=== PATIENT | male | born 1940 | race Caucasian/White ===

== ENCOUNTER → 2017-03-21 | Outpatient (CLI) | payer OTHER ==
[~2017-03-21] MED LIST: IOPAMIDOL (ISOVUE-M 200) 20 ML VIAL ONE; LIDOCAINE 1% 300 MG/30 ML SDV ONE
[2017-03-21 11:28] LABS: INR 1.15 (0.83-1.16); PROTIME(PATIENT) 14.9 SEC (12.0-15.0)
== END ==
LOC: FIMAGING 10:21
PROVIDERS: ATTEND Neurological Surgery
PROC: 3E0R3KZ Introduction of Other Diagnostic Substance into Spinal Canal, Percutaneous Approach (ICD-10-PCS; principal; 2017-03-21)
DX: S22.080A Wedge compression fracture of T11-T12 vertebra, initial encounter for closed fracture (principal); M51.36 Other intervertebral disc degeneration, lumbar region; M48.061 Spinal stenosis, lumbar region without neurogenic claudication; M25.78 Osteophyte, vertebrae
CPT/HCPCS: 62284; 72110; 72132; 72265; Q9966

== ENCOUNTER 2017-04-19 21:19 | Inpatient (IN) | payer OTHER ==
[2017-04-19] MEDS ORDERED: HYDROGEN PEROXIDE 236 ML BOTTLE TP ONE (21:40)
[2017-04-19] MEDS ORDERED: TDAP ADULT 0.5 ML INJ (BOOSTRIX) IM ONE (21:42)
--- NOTE | 2017-04-19 21:45 | EDPHY ---
H & P Smoking Status: Never smoked Time Seen by Provider: 04/19/17 21:31 HPI/ROS: CHIEF COMPLAINT: Fall with head injury HISTORY OF PRESENT ILLNESS: Patient is a history of pacemaker and atrial fibrillation is on warfarin. His [id number] brought him in today because he fell last night and there is a large amount of blood on the pillow. He does not remember if he passed out or foot was mechanical. Patient was a little bit more confused today per the [id number]. Patient is a mild headache. Does not radiate. Not associated with weakness or numbness in extremities or nausea or vomiting. REVIEW OF SYSTEMS: Eye: no change in vision ENT: no sore throat Cardiac: No chest pain, unknown if syncope Pulmonary: no cough or SOB Abdomen: no vomiting, diarrhea, abdominal pain Musculoskeletal: Chronic back pain scheduled for surgery, does not have neck pain. Does not have extremity pain. Increased back pain since his fall. Skin: Bleeding from the scalp on the left Neuro: HPI Constitutional: no fever : no urinary symptoms A comprehensive 10 point review of systems is otherwise negative aside from elements mentioned in the history of present illness. PAST MEDICAL HISTORY: Includes pacemaker with atrial fibrillation, on warfarin , chronic back pain with surgery scheduled. Social history: Lives independently, here with his [id number] General Appearance: Alert and conversant, cooperative. Eyes: No scleral icterus. Pupils equal and reactive. ENT, Mouth: Normal mucous membranes. Large amount of matted blood in the left side of the scalp. Respiratory: Normal respiratory effort, breath sounds equal, lungs are clear to auscultation. Cardiovascular: Regular rate and rhythm. Gastrointestinal: Abdomen is soft and non tender. Neurological: Alert, face symmetric, normal motor and sensory in extremities. He can move all 4 extremities. He can answer questions appropriately. Skin: Matted blood on the left scalp. Musculoskeletal: Tenderness to palpation on the cervical spine as well as the low lumbar area. No thoracic spine tenderness. No extremity deformity or tenderness and no hip pain on rotation or axial loading. Psychiatric: Not agitated. Emergency Department course/MDM: Trauma evaluation to include head and cervical spine CT, tetanus update, cleaning scalp to evaluate for head wound. Indication for head CT is head trauma on warfarin, anticoagulated. Initial BP 71 systolic but no clinical evidence of hemorrhagic shock, or active bleeding, or infection. All subsequent blood pressures not hypotensive. Syncope evaluation to include EKG and troponin. No aspirin with already having taken Brilinta today. Patient will need to be admitted for possibility of syncope and known cardiac disease. Lumbar spine x-rays for increased back pain after trauma. 2209: Creatinine elevated at 2.1, likely due to dehydration. IV fluid hydration ordered. 2230: Negative head and cervical spine CT for trauma per Dr. Shaffer. Appropriate for admission to Medicine with scalp laceration as the only traumatic injury. Evaluation for syncope and acute renal failure with probable dehydration. Cervical spine cleared clinically at this time. Left side scalp cleaned, 6cm laceration, see Vanessa ESQUIVEL note for wound care/ closure. The brother-in law is requesting case management consultation while admitted due to concerns about patient being able to adequately care for self in current living situation. (Carlos Delgado) Constitutional: Initial Vital Signs Temperature (C) 36.4 C 04/19/17 21:25 Heart Rate 106 H 04/19/17 21:25 Respiratory Rate 18 04/19/17 21:25 Blood Pressure 71/54 L 04/19/17 21:25 O2 Sat (%) 97 04/19/17 21:25 O2 Delivery Mode Room Air Allergies/Adverse Reactions: No Known Allergies Allergy (Unverified 03/17/17 10:44) Home Medications: Medication Instructions Recorded Allopurinol [Zyloprim] 300 mg PO DAILY 09/08/14 Aspirin [Aspirin 81mg (*)] 81 mg PO DAILY 09/08/14 Carvedilol [Coreg] 12.5 mg PO BIDMEAL 09/08/14 Cholecalciferol Vit D3 [Vitamin D3 1,000 units PO DAILY 09/08/14 (*)] Duloxetine HCl [Cymbalta] 30 mg PO DAILY 09/08/14 Levothyroxine [Synthroid 100 mcg 100 mcg PO DAILY06 09/08/14 (*)] ZOLPIDEM TARTRATE [Ambien CR 12.5 12.5 mg PO HS 09/08/14 mg] Alendronate Sodium 50 mg PO 08/12/15 Coumadin 2 mg PO AD 08/12/15 Torsemide 60 mg PO BID 08/12/15 Warfarin Sodium [Coumadin 4MG (*)] mg PO DAILY16 08/12/15 Losartan Potassium 03/01/17 Medical Decision Making - Diagnostics Imaging: Discussed imaging studies w/ circus rider Radiologist Consult/Admit Bed Type: [place] [id number] - Diagnostics EKG Interpretation: 12-lead EKG interpreted by me; official reading is in trace master. My interpretation is pacer rhythm with atrial fibrillation flutter rate 78. (Carlos Delgado) Imaging Results: Imaging Impressions Cervical Spine CT 04/19/17 21:42 Impression: 1. No acute osseous abnormality seen about the cervical spine. 2. Degenerative disk disease lower cervical spine with facet hypertrophy mid to upper cervical spine. Findings discussed with Carlos Delgado M.D. at 22:30 hour, 04/19/2017. Head CT 04/19/17 21:42 Impression: 1. Moderate atrophy. 2. No hemorrhage, mass effect, or definite acute peripheral infarct. 3. Minimal nonspecific hypodensities in the white matter of bilateral cerebral hemispheres. Differential diagnosis includes microvascular ischemic disease, post-infectious/post-inflammatory sequela, atypical demyelinating disease, or migraine-related sequela. Small white matter lacunar infarcts may also have this appearance. 4. Soft tissue contusion over the left superior parietal bone without associated fracture. If symptoms worsen, additional imaging may be necessary. Findings discussed with Carlos Delgado M.D. at 22:30 hour, 04/19/2017. Lumbar Spine X-Ray 04/19/17 21:45 Impression: 1. No acute osseous abnormality seen about the lumbar spine. 2. Marked disk space narrowing with associated hypertrophic osteophytes stable in appearance. 3. Mild compression central inferior endplate of T12 related to Schmorl's node stable in appearance. Procedures: Procedure: Laceration repair. I was requested by to perform wound closure I explained the indications, risks and benefits for both laceration repair and anesthetic administration. Verbal consent was obtained from the patient. The laceration on the the vertex of the scalp was anesthetized using 0.5% bupivicaine with epinephrine. After anesthetic administered the patient was observed for a period of time and had no apparent adverse effects. The wound was cleaned, prepped, draped in normal sterile fashion and explored to its base. No foreign body seen, no foreign bodies palpated. There were no deep structures involved. The wound was repaired with 12 dean. The wound repair was complex. The procedure was performed by myself. Patient has been informed that scarring will occur, although efforts have been made to minimize this. ( Pau Mendez) Differential Diagnosis: Differential diagnosis considered for syncope including but not limited to vasovagal syncope, arrhythmia, dehydration, and blood loss. (Carlos Delgado) - Data Points Laboratory Results: Laboratory Results 04/19/17 21:45 04/19/17 21:45 04/19/17 04/19/17 04/19/17 21:45 21:45 21:45 WBC 14.37 10^3/uL H 10^3/uL (3.80-9.50) RBC 3.39 10^6/uL L 10^6/uL (4.40-6.38) Hgb 11.3 g/dL L g/dL (13.7-17.5) Hct 33.1 % L % (40.0-51.0) MCV 97.6 fL fL (81.5-99.8) MCH 33.3 pg pg (27.9-34.1) MCHC 34.1 g/dL g/dL (32.4-36.7) RDW 16.5 % H % (11.5-15.2) Plt Count 223 10^3/uL 10^3/uL (150-400) MPV 12.5 fL H fL (8.7-11.7) Neut % (Auto) 93.1 % H % (39.3-74.2) Lymph % (Auto) 4.5 % L % (15.0-45.0) [place] % (Auto) 1.3 % L % (4.5-13.0) Eos % (Auto) 0.1 % L % (0.6-7.6) Baso % (Auto) 0.3 % % (0.3-1.7) Nucleat RBC Rel Count 0.0 % % (0.0-0.2) Absolute Neuts (auto) 13.38 10^3/uL H 10^3/uL (1.70-6.50) Absolute Lymphs (auto) 0.65 10^3/uL L 10^3/uL (1.00-3.00) Absolute Monos (auto) 0.19 10^3/uL L 10^3/uL (0.30-0.80) Absolute Eos (auto) 0.01 10^3/uL L 10^3/uL (0.03-0.40) Absolute Basos (auto) 0.04 10^3/uL 10^3/uL (0.02-0.10) Absolute Nucleated RBC 0.00 10^3/uL 10^3/uL (0-0.01) Immature Gran % 0.7 % % (0.0-1.1) Immature Gran # 0.10 10^3/uL 10^3/uL (0.00-0.10) PT 29.4 SEC H SEC (12.0-15.0) INR 2.80 H (0.83-1.16) APTT 39.2 SEC H SEC (23.0-38.0) Sodium 130 mEq/L L mEq/L (135-145) Potassium 4.6 mEq/L mEq/L (3.5-5.2) Chloride 95 mEq/L L mEq/L (97-110) Carbon Dioxide 22 mEq/l mEq/l (22-31) Anion Gap 13 mEq/L mEq/L (8-16) BUN 43 mg/dL H mg/dL (7-23) Creatinine 2.1 mg/dL H mg/dL (0.7-1.3) Estimated GFR 31 Glucose 95 mg/dL mg/dL (70-100) Calcium 8.8 mg/dL mg/dL (8.5-10.4) Troponin I 0.039 ng/mL H ng/mL (0.000-0.034) Patient ABO/Rh Antibody Screen 04/19/17 21:45 WBC RBC Hgb Hct MCV MCH MCHC RDW Plt Count MPV Neut % (Auto) Lymph % (Auto) [place] % (Auto) Eos % (Auto) Baso % (Auto) Nucleat RBC Rel Count Absolute Neuts (auto) Absolute Lymphs (auto) Absolute Monos (auto) Absolute Eos (auto) Absolute Basos (auto) Absolute Nucleated RBC Immature Gran % Immature Gran # PT INR APTT Sodium Potassium Chloride Carbon Dioxide Anion Gap BUN Creatinine Estimated GFR Glucose Calcium Troponin I Patient ABO/Rh A POSITIVE Antibody Screen NEGATIVE Medications Given: Cyclobenzaprine HCl (Flexeril) 10 mg PO TID PRN PRN Reason: Pain Stop: 10/17/17 08:59 Last Admin: 04/20/17 03:38 Dose: 10 mg Melatonin (Melatonin) 3 mg PO HS PRN PRN Reason: Sleep/Insomnia Stop: 10/17/17 01:02 Last Admin: 04/20/17 01:15 Dose: 3 mg Oxycodone HCl (Oxycodone Ir) 5 - 10 mg PO Q4HRS PRN PRN Reason: Pain, Severe Able to Take PO Stop: 04/30/17 01:02 Last Admin: 04/20/17 01:14 Dose: 10 mg Discontinued Medications Diphtheria/Tetanus/Acell Pertussis (Boostrix) 0.5 ml IM .ONCE ONE Stop: 04/19/17 21:43 Last Admin: 04/19/17 22:18 Dose: 0.5 ml Sodium Chloride (Ns) 1,000 mls @ 0 mls/hr IV EDNOW ONE; Wide Open PRN Reason: Protocol Stop: 04/19/17 22:11 Last Admin: 04/19/17 22:20 Dose: 1,000 mls Sodium Chloride (Ns) 500 mls @ 0 mls/hr IV ONCE ONE PRN Reason: Wide Open Stop: 04/20/17 01:57 Last Admin: 04/20/17 02:22 Dose: 500 mls Departure - Departure Disposition: [facility] Inpatient Acute Clinical Impression: Elevated troponin Syncope Qualifiers: Syncope type: unspecified Qualified Code(s): R55 - Syncope and collapse Acute renal failure Qualifiers: Acute renal failure type: unspecified Qualified Code(s): N17.9 - Acute kidney failure, unspecified Scalp laceration Qualifiers: Encounter type: initial encounter Qualified Code(s): S01.01XA - Laceration without foreign body of scalp, initial encounter Condition: Fair
[2017-04-19 21:50] LABS: PLATELET COUNT 223 10^3/uL (150-400)
--- NOTE | 2017-04-19 21:51 | CPEKG ---
Heart Rate: 78 RR Interval: 769 QRSD Interval: 132 QT Interval: 416 QTC Interval: 474 QRS [place]: -65 T Wave [place]: 76 EKG Severity - ABNORMAL ECG - EKG Impression: AFIB/FLUTTER AND VENTRICULAR-PACED RHYTHM Electronically Signed By: Carlos Delgado 19-Apr-2017 21:52:03
[2017-04-19 21:59] LABS: INR 2.8 (0.83-1.16); PROTIME(PATIENT) 29.4 SEC (12.0-15.0)
[2017-04-19] MEDS ORDERED: NS 1,000 ML IV ONE (22:10)
[2017-04-19] MEDS ORDERED: ONDANSETRON 4 MG/2 ML VIAL IVP PRN (22:17)
[2017-04-19] MEDS ORDERED: ONDANSETRON DISINTEGRATING 4 MG TAB PO PRN (22:17)
[2017-04-19] MEDS ORDERED: ACETAMINOPHEN 325 MG TAB PO PRN (22:17)
--- NOTE | 2017-04-20 00:55 | PDGENHP ---
History and Physical - Chief Complaint Fall - History of Present Illness 77 yo M w/ hx of vestibular CVA and AF on warfarin presents after a fall. The patient tripped and fell down a flight of stairs, hitting is head. He has poor recollection of the following 12 hours. He recalls waking up and seeing large amounts of blood in his bed. He as brought to the ED and was found to have a large scalp wound. CT Head was negative for intracranial injury. 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 He lives in a 2 story house and falls frequently. History Information - Allergies/Home Medication List Allergies/Adverse Reactions: No Known Allergies Allergy (Unverified 03/17/17 10:44) Home Medications: Allopurinol [Zyloprim] 300 mg PO DAILY 09/08/14 [Last Taken 08/11/15 12:00] Aspirin [Aspirin 81mg (*)] 81 mg PO DAILY 09/08/14 [Last Taken 08/10/15 10:00] Carvedilol [Coreg] 12.5 mg PO BIDMEAL 09/08/14 [Last Taken 08/11/15 20:00] Cholecalciferol Vit D3 [Vitamin D3 (*)] 1,000 units PO DAILY 09/08/14 [Last Taken 08/11/15 10:00] Duloxetine HCl [Cymbalta] 30 mg PO DAILY 09/08/14 [Last Taken 08/11/15 10:00] Levothyroxine [Synthroid 100 mcg (*)] 100 mcg PO DAILY06 09/08/14 [Last Taken 10:00] ZOLPIDEM TARTRATE [Ambien CR 12.5 mg] 12.5 mg PO HS 09/08/14 [Last Taken 21:00] Alendronate Sodium 50 mg PO 08/12/15 [Last Taken Unknown] Coumadin 2 mg PO AD 08/12/15 [Last Taken Unknown] Torsemide 60 mg PO BID 08/12/15 [Last Taken 08/11/15 08:00] Warfarin Sodium [Coumadin 4MG (*)] mg PO DAILY16 08/12/15 [Last Taken 08/11/15 10:00] Losartan Potassium 03/01/17 [Last Taken Unknown] I have personally reviewed and updated: family history, medical history - Past Medical History atrial fibrillation, CVA - Surgical History Reports: pacemaker/AICD - Family History Positive for: cancer - Social History Smoking Status: Never smoked Review of Systems Review of Systems: ROS: 10pt was reviewed & negative except for what was stated in HPI & below Physical Exam Physical Exam: Temp Pulse Resp BP Pulse Ox 36.6 C 63 19 97/59 L 93 04/20/17 00:17 04/20/17 00:17 04/20/17 00:17 04/20/17 00:17 04/20/17 00:17 Constitutional: no apparent distress, not in pain Eyes: PERRL, EOMI Ears, Nose, Mouth, Throat: moist mucous membranes, no oral mucosal ulcers Cardiovascular: no murmur, rub, or gallop, irregularly irregular Respiratory: no respiratory distress, clear to auscultation Gastrointestinal: normoactive bowel sounds, soft, non-tender abdomen Skin: warm, other (Scalp laceration and hematoma) Musculoskeletal: full muscle strength, no muscle tenderness Neurologic: AAOx3, CN II-XII Intact Psychiatric: interacting appropriately, not anxious Lab Data & Imaging Review 04/19/17 21:45 04/19/17 21:45 WBC 14.37 10^3/uL (3.80-9.50) H 04/19/17 21:45 RBC 3.39 10^6/uL (4.40-6.38) L 04/19/17 21:45 Hgb 11.3 g/dL (13.7-17.5) L 04/19/17 21:45 Hct 33.1 % (40.0-51.0) L 04/19/17 21:45 MCV 97.6 fL (81.5-99.8) 04/19/17 21:45 MCH 33.3 pg (27.9-34.1) 04/19/17 21:45 MCHC 34.1 g/dL (32.4-36.7) 04/19/17 21:45 RDW 16.5 % (11.5-15.2) H 04/19/17 21:45 Plt Count 223 10^3/uL (150-400) 04/19/17 21:45 MPV 12.5 fL (8.7-11.7) H 04/19/17 21:45 Neut % (Auto) 93.1 % (39.3-74.2) H 04/19/17 21:45 Lymph % (Auto) 4.5 % (15.0-45.0) L 04/19/17 21:45 Price % (Auto) 1.3 % (4.5-13.0) L 04/19/17 21:45 Eos % (Auto) 0.1 % (0.6-7.6) L 04/19/17 21:45 Baso % (Auto) 0.3 % (0.3-1.7) 04/19/17 21:45 Nucleat RBC Rel Count 0.0 % (0.0-0.2) 04/19/17 21:45 Absolute Neuts (auto) 13.38 10^3/uL (1.70-6.50) H 04/19/17 21:45 Absolute Lymphs (auto) 0.65 10^3/uL (1.00-3.00) L 04/19/17 21:45 Absolute Monos (auto) 0.19 10^3/uL (0.30-0.80) L 04/19/17 21:45 Absolute Eos (auto) 0.01 10^3/uL (0.03-0.40) L 04/19/17 21:45 Absolute Basos (auto) 0.04 10^3/uL (0.02-0.10) 04/19/17 21:45 Absolute Nucleated RBC 0.00 10^3/uL (0-0.01) 04/19/17 21:45 Immature Gran % 0.7 % (0.0-1.1) 04/19/17 21:45 Immature Gran # 0.10 10^3/uL (0.00-0.10) 04/19/17 21:45 PT 29.4 SEC (12.0-15.0) H 04/19/17 21:45 INR 2.80 (0.83-1.16) H 04/19/17 21:45 APTT 39.2 SEC (23.0-38.0) H 04/19/17 21:45 Sodium 130 mEq/L (135-145) L 04/19/17 21:45 Potassium 4.6 mEq/L (3.5-5.2) 04/19/17 21:45 Chloride 95 mEq/L (97-110) L 04/19/17 21:45 Carbon Dioxide 22 mEq/l (22-31) 04/19/17 21:45 Anion Gap 13 mEq/L (8-16) 04/19/17 21:45 BUN 43 mg/dL (7-23) H 04/19/17 21:45 Creatinine 2.1 mg/dL (0.7-1.3) H 04/19/17 21:45 Estimated GFR 31 04/19/17 21:45 Glucose 95 mg/dL (70-100) 04/19/17 21:45 Calcium 8.8 mg/dL (8.5-10.4) 04/19/17 21:45 Troponin I 0.039 ng/mL (0.000-0.034) H 04/19/17 21:45 Patient ABO/Rh A POSITIVE 04/19/17 21:45 Antibody Screen NEGATIVE 04/19/17 21:45 Imaging Review: Imaging Impressions Cervical Spine CT 04/19/17 21:42 Impression: 1. No acute osseous abnormality seen about the cervical spine. 2. Degenerative disk disease lower cervical spine with facet hypertrophy mid to upper cervical spine. Findings discussed with Carlos Delgado M.D. at 22:30 hour, 04/19/2017. Head CT 04/19/17 21:42 Impression: 1. Moderate atrophy. 2. No hemorrhage, mass effect, or definite acute peripheral infarct. 3. Minimal nonspecific hypodensities in the white matter of bilateral cerebral hemispheres. Differential diagnosis includes microvascular ischemic disease, post-infectious/post-inflammatory sequela, atypical demyelinating disease, or migraine-related sequela. Small white matter lacunar infarcts may also have this appearance. 4. Soft tissue contusion over the left superior parietal bone without associated fracture. If symptoms worsen, additional imaging may be necessary. Findings discussed with Carlos Delgado M.D. at 22:30 hour, 04/19/2017. Lumbar Spine X-Ray 04/19/17 21:45 Impression: 1. No acute osseous abnormality seen about the lumbar spine. 2. Marked disk space narrowing with associated hypertrophic osteophytes stable in appearance. 3. Mild compression central inferior endplate of T12 related to Schmorl's node stable in appearance. Visualized and Interpreted Chest x-ray results: Yes Visualized and Interpreted EKG results: Yes EKG Interpretation: Positive for: other (AF, V-paced) Assessment & Plan Assessment: 77 yo M w/ hx of CVA and AF presents after a fall. Plan: 1. Fall, scalp laceration - Patient tripped and fell down the stairs. He falls often as a result of gait dysfunction from prior stroke. He hit his head as he fell and lacerated his scalp. CT of head and C-spine negative for additional injuries. I suspect he suffered a concussions as well as he has a very vague memory of the subsequent 12-18 hours. - Admit for observation - PT/OT evaluations 2. ALEXANDRU - Serum creatinine of 2.1 on admission with baseline of 1-1.2. I suspect pre-renal azotemia noting minimal PO intake over last 24 hours in combination with diuretic therapy. - S/p IVF, recheck BMP in AM - Will send UA and urine lytes 3. Indeterminate troponin - Unclear significance, no chest pain. Will trend enzymes. 4. Hyponatremia - 130 on admission, suspect dehydration. Trend BMP after IVF. 5. Leukocytosis - Likely reactive from head injury. Monitor. 6. AF - s/p PPM, on warfarin for AC with therapeutic INR. Monitor daily INR. 7. Hx of CVA - Patient describes small vestibular strokes with resultant gait dysfunction. PT/OT evals. Diet - Regular Code - Full Ppx - warfarin Dispo - Admit under observation status
[2017-04-20] MEDS: oxyCODONE IR 5 MG TAB PO PRN (01:14)
[2017-04-20] MEDS: MELATONIN 3 MG TAB PO PRN ×2 (01:15→20:21)
[2017-04-20] MEDS ORDERED: NS 500 ML IV ONE (01:56)
[2017-04-20] MEDS ORDERED: CYCLOBENZAPRINE 10 MG TAB PO PRN (02:55)
[2017-04-20 03:23] LABS: PLATELET COUNT 171 10^3/uL (150-400)
--- NOTE | 2017-04-20 09:26 | ASMTCASEMG ---
Living Arrangements What is your living Answers: Alone arrangement? Who do you live with? Type Of Residence What kind of residence do Answers: House you live in? Discharge Plan Comments Coordination Status Comments Notes: CM spoke w/ MILDRED Morales regarding d/c POC. Pt is a 77 y/o female admitted for falling. Therapies have been ordered and awaiting recommendations. Pt lives in a 2 story home. Pt has been having multiple falls. Needs are TBD at this time. CM to follow. Plan: TBD Date Signed: 04/20/2017 09:25 AM Electronically Signed By:DUKE Rivera
--- NOTE | 2017-04-20 12:14 | HOSPPROG ---
Hospitalist Progress Note Assessment/Plan: 77 yo M w/ hx of CVA and AF presents after a fall. First encounter, chart reviewed. D/W neurosurgery and trauma. Plan: 1. Fall, scalp laceration - -Patient tripped and fell down the stairs. -takes ambien at night, discontinued -He falls often as a result of gait dysfunction from prior stroke. -He hit his head as he fell and lacerated his scalp. -CT of head and C-spine negative for additional injuries. -I suspect he suffered a concussions as well as he has a very vague memory of the subsequent 12-18 hours. -PT/OT/BOLT LOADER evaluations 2. ALEXANDRU - -Serum creatinine of 2.1 on admission with baseline of 1-1.2. -responding to hydration -suspect pre-renal azotemia noting minimal PO intake over last 24 hours in combination with diuretic therapy. -S/p IVF, recheck BMP in AM -Will send UA and urine lytes 3. Indeterminate troponin - -Unclear significance, no chest pain. -tending down 4. Hyponatremia - -130 on admission, suspect dehydration. -Trend BMP after IVF. -responding 5. Leukocytosis - -Likely reactive from head injury. Monitor. 6. AF - -s/p PPM, on warfarin for AC with therapeutic INR. Monitor daily INR. 7. Hx of CVA - -Patient describes small vestibular strokes with resultant gait dysfunction. PT/ OT evals. 8.Anemia -in the setting of acute blood loss -follow 9. Skin wounds -cont treatment 10. T12 compression -d/w neurosurgery -Nicki pt -consult ordered -has planned spine surgery in May 17. Rib pain -eval for fracture Diet - Regular Code - Full Ppx - warfarin Dispo - change to inpt status will need further evaluation in hospital setting consider SNF for rehab Subjective: Feels ok. Still having back pain. Objective: Vital Signs Temp Pulse Resp BP Pulse Ox 36.4 C 70 14 99/64 L 99 04/20/17 08:39 04/20/17 08:39 04/20/17 08:39 04/20/17 08:39 04/20/17 08:39 Laboratory Results 04/20/17 03:05 04/20/17 03:05 04/19/17 04/20/17 04/21/17 05:59 05:59 05:59 Intake Total 2000 Output Total 300 600 Balance 1700 -600 PT 29.4 SEC (12.0-15.0) H 04/19/17 21:45 INR 2.80 (0.83-1.16) H 04/19/17 21:45 - Physical Exam Constitutional: chronically ill appearing, obese, uncomfortable Eyes: PERRL, anicteric sclera, EOMI Ears, Nose, Mouth, Throat: moist mucous membranes, hearing normal, ears appear normal Cardiovascular: No JVD, No tachycardia, No edema Respiratory: no respiratory distress, no rales or rhonchi, reduced air movement Gastrointestinal: normoactive bowel sounds, No tenderness, No ascites Skin: warm, abrasion, erythema, other (laceration) Musculoskeletal: joint tenderness, pain with ROM, abnormal gait, generalized weakness Neurologic: AAOx3 Psychiatric: not anxious, not encephalopathic, poor insight, poor judgement, poor memory ICD10 Worksheet Patient Problems: Problems Problem Status Onset GLUTEAL HEMATOMA Acute Systolic CHF, acute on chronic Acute Cardiomyopathy Acute Chronic Disease Mgmt/Transitional Care Acute Syncope Acute Acute renal failure Acute Scalp laceration Acute Elevated troponin Acute
--- NOTE | 2017-04-20 13:41 | GCON ---
[f rep st] CONSULTATION NEUROSURGICAL CONSULTATION. CHIEF COMPLAINT: Back pain after fall. HISTORY OF PRESENT ILLNESS: The patient is a 77-year-old male with a complex medical history involvi ng a pacemaker, atrial fibrillation for which he is on Coumadin. 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 Caceres. He has bee n undergoing a course of conservative care with therapy, epidural steroid injections as well as Neuro ntin. He feels like the Neurontin has made him dizzy and he has been having several falls. After th e most recent fall, he was having a significant amount of low back pain. He describes pain across hi s back. This is associated with the typical pain radiating into both legs. He describes pain in his anterior and posterior thigh that is worse with walking and better with rest. He feels like his leg s are generally weak and he has chronic dorsiflexor weakness. He does have peripheral neuropathy and describes ongoing numbness in both feet. He feels like his balance is off. He has not been having any bowel and bladder problems. He has tried physical therapy, Neurontin and epidural steroid inject ions with no significant improvement of his pain. PAST MEDICAL HISTORY: 1. Hypertension. 2. Atrial fibrillation. 3. Previous stroke. 4. Gout. MEDICATIONS: Prior to admission are allopurinol, aspirin, Coreg, vitamin D, Cymbalta, Synthroid, Amb ien, alendronate sodium, Coumadin, Lasix, warfarin, losartan. ALLERGIES: No known drug allergies. FAMILY HISTORY: Patient has no family history of spine problems. SOCIAL HISTORY: The patient is single with no children. He does drink alcohol socially, but denies smoking or drug use. REVIEW OF SYSTEMS: Negative. PHYSICAL EXAM: GENERAL: Patient is a 77-year-old male lying in bed, in no apparent distress. HEAD/ EYES/EARS/NOSE/THROAT: Negative to drainage. SKIN: His skin has multiple small scrapes and abrasions on them. NEUROLOGIC: Patient is awake, alert, oriented x4. oriented x4. Pupils equal, round, reactive to lig ht. Extraocular motions are intact. There is no evidence of facial droop. Tongue and uvula are mid line. His motor strength appears 5/5 in his arms and legs with the exception of bilateral dorsiflexo rs which are 2/5 including his extensor hallucis longus. His sensation is grossly intact to light to uch in his arms and legs. Deep tendon reflexes are 1/4 throughout. There is a negative Tiffani's w ith no clonus. DIAGNOSTIC STUDIES: A CT myelogram of the lumbar spine from [facility] on 04/19/2017 shows preservation of the sagittal alignment. There is moderate to severe multilevel degenerative c hanges. At T12, there appears to be an acute compression deformity with approximately 20% loss of he ight and no retropulsion. At L4-5 and L5-S1, there is severe degenerative joint disease with ligamen loraine hypertrophy and broad-based disk herniation. This produces severe central canal stenosis bilater ally at both levels. A CT scan of the cervical spine shows moderate to severe multilevel degenerative changes with no frac ture. The head CT without contrast 04/19/2017, shows diffuse cerebral atrophy with no acute hemorrhage. IMPRESSION: This is a 77-year-old male with a known history of lumbar degenerative joint disease and neurogenic claudication symptoms and chronic dorsiflexor weakness. He is experiencing recent falls that he attributes to his Neurontin with an acute T12 compression fracture. He is at his baseline ne urological status. PLAN: Above discussed in detail with the patient. This patient was seen and examined with Dr. Dayton smith present. At this point time, we will treat his T12 compression fracture with a Hannah brace . We would like him to wear the brace at all times when out of bed. We will also have him work with Physical therapy and Occupational therapy. In regard to his lumbar stenosis and neurogenic claudica tion we recommend further conservative care with pain medications and therapy. He has had several ep idural steroid injections of the spine and none of them have been very effective. Since h is injections have not been helpful, it is not worthwhile to repeat any epidural steroid injections h ere. If he fails to improve with therapy then we can consider early surgical intervention for his se wally lumbar stenosis. If he does okay with conservative care, then he can be discharged and we can h ave him wait for surgery with Dr. Caceres on 05/18. We will follow along. Please call with any neuro logical changes. /[id number]/MODL
--- NOTE | 2017-04-20 15:12 | PDMN ---
Medical Necessity Medical necessity: Change to IP, as of 04/20/17, per PARIMUTUEL TICKET CASHIER; los >2 mn for ongoing eval/tx scalp laceration, T12 compression fx, possible rib fx, acute kidney injury, indeterminate troponin, hyponatremia, leukocytosis & anemia; admit for further monitoring/workup, IVFs, Neurosurgery consult & therapies; hx gait dysfunction r/t CVA, AFIB on AC, htn, peripheral neuropathy, lumbar stenosis; per progress note & order 04/20/17
--- NOTE | 2017-04-20 16:21 | ASMTCMCOM ---
CM Note CM Note Notes: CM met w/ pt and sister for dispo planning. PT is recommending SNF. Pt and sister would like [facility]errals [facility] Referral sent to both facilities. Sister does not want pt going to [facility] or [facility]. CM completed non triggering pasrr. CM to follow. Plan: SNF Date Signed: 04/20/2017 04:20 PM Electronically Signed By:DUKE Rivera
[2017-04-20] MEDS: CARVEDILOL 6.25 MG TAB PO SCH (18:01)
[2017-04-21 04:04] LABS: INR 2.46 (0.83-1.16); PROTIME(PATIENT) 26.6 SEC (12.0-15.0)
[2017-04-21] MEDS: LEVOTHYROXINE 100 MCG TAB PO SCH (07:08)
[2017-04-21] MEDS: oxyCODONE IR 5 MG TAB PO PRN ×3 (07:18→21:41)
--- NOTE | 2017-04-21 08:58 | NEUSURGPN ---
Assessment/Plan: A: 77 yo M s/p recent fall with T12 compression fx, known L4-S1 stenosis. P: PT/OT Brace when OOB Xrays in brace pending to eval fracture Pain management Has chronic dorsiflexor weakness D/w Dr Mahmood Please call NS with any questions Subjective: Pt resting in bed, hasn't slept all night. Back pain with movement. Objective: AAOx3 NAD VSS MAEx4 Motor 5/5 BLE with exception of bilat DF 2/[address]: No - Physician Discussed Patient with Dr.: Tyson Neurosurgery Physical Exam - Vitals, I&O, Labs I and O 04/20/17 04/21/17 04/22/17 05:59 05:59 05:59 Intake Total 950 Output Total 650 Balance 300 Intake: Oral (ml) 950 Output: Urine (ml) 650 Urinal 650 Other: Intake Quantity Yes Sufficient Vital Signs Temp Pulse Resp BP Pulse Ox 36.7 C 77 22 H 103/69 99 04/21/17 07:30 04/21/17 07:30 04/21/17 07:30 04/21/17 04:00 04/21/17 07:30 Laboratory Results 04/21/17 03:21 04/21/17 03:21 ICD10 Worksheet Patient Problems: Problems Problem Status Onset Acute renal failure Acute Elevated troponin Acute Scalp laceration Acute Syncope Acute Cardiomyopathy Acute Chronic Disease Mgmt/Transitional Care Acute GLUTEAL HEMATOMA Acute Systolic CHF, acute on chronic Acute
[2017-04-21] MEDS ORDERED: DULoxetine 60 MG CAP PO SCH (09:00)
[2017-04-21] MEDS ORDERED: WARFARIN SODIUM 4 MG TAB PO SCH (09:00)
[2017-04-21] MEDS ORDERED: LOSARTAN POTASSIUM 50 MG TAB PO SCH (09:00)
[2017-04-21] MEDS: ALLOPURINOL 300 MG TAB PO SCH (09:25)
[2017-04-21] MEDS: ASPIRIN 81 MG CHEWABLE TAB PO SCH (09:25)
[2017-04-21] MEDS: CARVEDILOL 6.25 MG TAB PO SCH ×2 (09:25→18:05)
[2017-04-21] MEDS: CHOLECALCIFEROL VIT D3 1,000 UNITS TAB PO SCH (09:25)
[2017-04-21] MEDS ORDERED: TORSEMIDE 20 MG TAB PO SCH (10:00)
[2017-04-21] MEDS ORDERED: TEMAZEPAM 15 MG CAP PO PRN (10:44)
--- NOTE | 2017-04-21 12:53 | ASMTCMCOM ---
CM Note CM Note Notes: Chart reviewed. Met with patient to review discharge plan of care . He states he would prefer [facility]. He has been accepted [facility], I have called [facility] and they have not been able to review referral as of yet. He tells me he has family touring both facilities today. Needs 3 midnights, CM to follow. Date Signed: 04/21/2017 12:52 PM Electronically Signed By:Belén Sims RN
--- NOTE | 2017-04-21 13:36 | HOSPPROG ---
Hospitalist Progress Note Assessment/Plan: 77 yo M w/ hx of CVA and AF presents after a fall. D/W Dr Angelo. Plan: 1. Fall, scalp laceration - -Patient unsure how it happened -takes ambien at night, discontinued -concussion -He falls often as a result of gait dysfunction from prior stroke. -CT of head and C-spine negative for additional injuries. -I suspect he suffered a concussions as well as he has a very vague memory of the subsequent 12-18 hours. -PT/OT/LINUX UNIX ENGINEER evaluations 2. ALEXANDRU - -resolved -Serum creatinine of 2.1 on admission with baseline of 1-1.2. -responding to hydration -suspect pre-renal azotemia noting minimal PO intake over last 24 hours in combination with diuretic therapy. -S/p IVF, recheck BMP in AM 3. Indeterminate troponin - -Unclear significance, no chest pain. -trending down 4. Hyponatremia - -130 on admission, suspect dehydration. -Trend BMP after IVF. -responding 5. Leukocytosis - -Likely reactive from head injury. Monitor. 6. AF - -s/p PPM, on warfarin for AC with therapeutic INR. Monitor daily INR. 7. Hx of CVA - -Patient describes small vestibular strokes with resultant gait dysfunction. PT/ OT evals. 8.Anemia -in the setting of acute blood loss -follow -stable 9. Skin wounds -cont treatment 10. T12 compression -d/w neurosurgery -[facility] pt -appreciate consult -has planned spine surgery in May 17. Rib fracture -cont therapy -RT, rib protocol 12. Insomnia -change cymbalta to HS -start restoril -DC all ambien -D/W PCP 13. Concussion -LINUX UNIX ENGINEER Diet - Regular Code - Full Ppx - warfarin Dispo - will need further evaluation in hospital setting SNF for rehab Subjective: Didn't sleep at all. Still haivng pain. No memory of events. Objective: Vital Signs Temp Pulse Resp BP Pulse Ox 36.7 C 77 22 H 103/69 99 04/21/17 07:30 04/21/17 07:30 04/21/17 07:30 04/21/17 04:00 04/21/17 07:30 Laboratory Results 04/21/17 03:21 04/21/17 03:21 04/20/17 04/21/17 04/22/17 05:59 05:59 05:59 Intake Total 950 Output Total 650 Balance 300 PT 26.6 SEC (12.0-15.0) H 04/21/17 03:21 INR 2.46 (0.83-1.16) H 04/21/17 03:21 - Physical Exam Constitutional: chronically ill appearing, obese, uncomfortable Eyes: PERRL, anicteric sclera, EOMI Ears, Nose, Mouth, Throat: moist mucous membranes, hearing normal, ears appear normal Cardiovascular: No JVD, No tachycardia, No edema Respiratory: no respiratory distress, no rales or rhonchi, reduced air movement Gastrointestinal: normoactive bowel sounds, No tenderness, No ascites Skin: warm, erythema, other (laceration) Musculoskeletal: pain with ROM, muscular tenderness, abnormal gait, generalized weakness Neurologic: AAOx3 Psychiatric: not anxious, not encephalopathic, poor insight, poor judgement, poor memory ICD10 Worksheet Patient Problems: Problems Problem Status Onset GLUTEAL HEMATOMA Acute Systolic CHF, acute on chronic Acute Cardiomyopathy Acute Chronic Disease [facility]/Transitional Care Acute Syncope Acute Acute renal failure Acute Scalp laceration Acute Elevated troponin Acute
[2017-04-21] MEDS: ACETAMINOPHEN 500 MG TAB PO PRN (21:40)
[2017-04-21] MEDS: MELATONIN 3 MG TAB PO PRN (21:41)
[2017-04-22] MEDS: LEVOTHYROXINE 100 MCG TAB PO SCH (06:31)
[2017-04-22] MEDS: ALLOPURINOL 300 MG TAB PO SCH (08:58)
[2017-04-22] MEDS: ACETAMINOPHEN 500 MG TAB PO PRN ×2 (08:58→18:41)
[2017-04-22] MEDS: CARVEDILOL 6.25 MG TAB PO SCH ×2 (08:59→18:05)
[2017-04-22] MEDS: ASPIRIN 81 MG CHEWABLE TAB PO SCH (08:59)
[2017-04-22] MEDS: CHOLECALCIFEROL VIT D3 1,000 UNITS TAB PO SCH (08:59)
[2017-04-22] MEDS: oxyCODONE IR 5 MG TAB PO PRN ×3 (09:01→23:17)
--- NOTE | 2017-04-22 15:52 | HOSPPROG ---
Hospitalist Progress Note Assessment/Plan: 77 yo M w/ hx of CVA and AF presents after a fall. Plan: 1. Fall, scalp laceration - -Patient unsure how it happened -takes ambien at night, discontinued -concussion -He falls often as a result of gait dysfunction from prior stroke. -CT of head and C-spine negative for additional injuries. -I suspect he suffered a concussions as well as he has a very vague memory of the subsequent 12-18 hours. -PT/OT/GREIGE GOODS MARKER evaluations this is a contraindication to ongoing warfarin therapy given "innumerable" falls 2. ALEXANDRU - -resolved -Serum creatinine of 2.1 on admission with baseline of 1-1.2. -responding to hydration -suspect pre-renal azotemia noting minimal PO intake over last 24 hours in combination with diuretic therapy. -S/p IVF, recheck BMP in AM 3. Indeterminate troponin - -Unclear significance, no chest pain. -trending down 4. Hyponatremia - -130 on admission, 2/2/ poor po intake plus diuretics -Trend BMP after IVF. -responding 5. Leukocytosis - -Likely reactive from head injury. Monitor. 6. AF - -s/p PPM, on warfarin for AC with therapeutic INR. Monitor daily INR. 7. Hx of CVA - -Patient describes small vestibular strokes with resultant gait dysfunction. PT/ OT evals. 8.Anemia -in the setting of acute blood loss -follow -stable 9. Skin wounds -cont treatment 10. T12 compression -d/w neurosurgery -[facility] pt -appreciate consult -has planned spine surgery in May 17. Rib fracture -cont therapy -RT, rib protocol Subjective: after discussion, amenable to dc to snf Objective: Vital Signs Temp Pulse Resp BP Pulse Ox 36.8 C 90 15 125/77 H 98 04/22/17 11:03 04/22/17 11:03 04/22/17 11:03 04/22/17 11:03 04/22/17 11:03 Laboratory Results 04/21/17 03:21 04/21/17 03:21 04/21/1718 04/23/17 05:59 05:59 05:59 Intake Total 950 1050 100 Output Total 650 400 Balance 300 650 100 PT 26.6 SEC (12.0-15.0) H 04/21/17 03:21 INR 2.46 (0.83-1.16) H 04/21/17 03:21 - Physical Exam Constitutional: no apparent distress, appears nourished Eyes: PERRL, anicteric sclera Ears, Nose, Mouth, Throat: moist mucous membranes, hearing normal Cardiovascular: regular rate and rhythym, no murmur, rub, or gallop Respiratory: no respiratory distress, no rales or rhonchi Gastrointestinal: normoactive bowel sounds, soft, non-tender abdomen Genitourinary: no bladder fullness, No perez in urethra Skin: warm, other (multiple bruises and scabs) Musculoskeletal: full muscle strength Neurologic: AAOx3 ICD10 Worksheet Patient Problems: Problems Problem Status Onset Acute renal failure Acute Elevated troponin Acute Scalp laceration Acute Syncope Acute Cardiomyopathy Acute Chronic Disease Mgmt/Transitional Care Acute GLUTEAL HEMATOMA Acute Systolic CHF, acute on chronic Acute
[2017-04-22] MEDS ORDERED: WARFARIN SODIUM 4 MG TAB PO SCH (16:00)
--- NOTE | 2017-04-22 17:27 | ASMTCMCOM ---
CM Note CM Note Notes: Spoke w/Stephanie at [facility]- no bed availability this weekend. Spoke w/pt's siste, enriqueta, who felt strongly that pt needed SNF. She does not feel he is safe to return home at this time. She was conceerned about empty vodka bottles that she found in pt's home; she said alcohol is not something he has struggled with but that it does run in his family and she wonderied if b/c of his paoin he was drinking more. Discussed this info w/Dr Yeh. Spoke w/pt several times today about rehab at [facility] which he is now agreeable to. Pt will likely dc in AM to to [facility], notified [facility] liason, and they are able to accept. CM should notify pt's sister Enriqueta of dc time; pt said she will be bringing him clothes tomorrow before dc. Date Signed: 04/22/2017 05:26 PM Electronically Signed By:Lala Aden RN
[2017-04-22] MEDS ORDERED: LACTULOSE 20 GM/30 ML UDCUP PO PRN (17:35)
[2017-04-22] MEDS ORDERED: POLYETHYLENE GLYCOL 3350 17 GM PKT PO PRN (17:35)
[2017-04-22] MEDS ORDERED: BISACODYL 10 MG SUPP PR PRN (17:35)
[2017-04-22] MEDS ORDERED: MAGNESIUM HYDROXIDE 30 ML UDCUP PO PRN (17:35)
[2017-04-22] MEDS: SENNOSIDES/DOCUSATE SODIUM TAB PO SCH (20:56)
[2017-04-22] MEDS ORDERED: DULoxetine 60 MG CAP PO SCH (21:00)
[2017-04-23] MEDS: LEVOTHYROXINE 100 MCG TAB PO SCH (05:55)
[2017-04-23] MEDS: SENNOSIDES/DOCUSATE SODIUM TAB PO SCH (08:25)
[2017-04-23] MEDS: CARVEDILOL 6.25 MG TAB PO SCH (08:25)
[2017-04-23] MEDS: CHOLECALCIFEROL VIT D3 1,000 UNITS TAB PO SCH (08:25)
[2017-04-23] MEDS: ALLOPURINOL 300 MG TAB PO SCH (08:25)
[2017-04-23] MEDS: ASPIRIN 81 MG CHEWABLE TAB PO SCH (08:25)
--- NOTE | 2017-04-23 10:41 | HOSPPROG ---
Hospitalist Progress Note Assessment/Plan: 77 yo M w/ hx of CVA and AF presents after a fall. Plan: 1. Fall, scalp laceration - -Patient unsure how it happened -takes ambien at night, discontinued -concussion -He falls often as a result of gait dysfunction from prior stroke. -CT of head and C-spine negative for additional injuries. -I suspect he suffered a concussions as well as he has a very vague memory of the subsequent 12-18 hours. -PT/OT/RN CLINICAL COORDINATOR evaluations this is a contraindication to ongoing warfarin therapy given "innumerable" falls 2. ALEXNADRU - -resolved -Serum creatinine of 2.1 on admission with baseline of 1-1.2. -responding to hydration -suspect pre-renal azotemia noting minimal PO intake over last 24 hours in combination with diuretic therapy. -S/p IVF, recheck BMP in AM 3. Indeterminate troponin - -Unclear significance, no chest pain. -trending down 4. Hyponatremia - -130 on admission, 2/2/ poor po intake plus diuretics -Trend BMP after IVF. -responding 5. Leukocytosis - -Likely reactive from head injury. Monitor. 6. AF - -s/p PPM, on warfarin for AC with therapeutic INR. Monitor daily INR. 7. Hx of CVA - -Patient describes small vestibular strokes with resultant gait dysfunction. PT/ OT evals. 8.Anemia -in the setting of acute blood loss -follow -stable 9. Skin wounds -cont treatment 10. T12 compression -d/w neurosurgery -[facility] pt -appreciate consult -has planned spine surgery in May 17. Rib fracture -cont therapy -RT, rib protocol dispo: to snf today Subjective: amenable to dc to [facility] Objective: Vital Signs Temp Pulse Resp BP Pulse Ox 36.6 C 67 18 123/77 H 96 04/23/17 07:54 04/23/17 07:54 04/23/17 07:54 04/23/17 07:54 04/23/17 07:54 Laboratory Results 04/21/17 03:21 04/21/17 03:21 18 04/23/17 04/24/17 05:59 05:59 05:59 Intake Total 1050 1100 Output Total 400 250 Balance 650 850 PT 26.6 SEC (12.0-15.0) H 04/21/17 03:21 INR 2.46 (0.83-1.16) H 04/21/17 03:21 - Physical Exam Constitutional: no apparent distress, appears nourished Eyes: PERRL, anicteric sclera Ears, Nose, Mouth, Throat: moist mucous membranes, hearing normal Cardiovascular: regular rate and rhythym, no murmur, rub, or gallop Respiratory: no respiratory distress, no rales or rhonchi Gastrointestinal: normoactive bowel sounds, soft, non-tender abdomen Genitourinary: no bladder fullness, No perez in urethra Skin: warm, normal color Musculoskeletal: full muscle strength Neurologic: AAOx3 ICD10 Worksheet Patient Problems: Problems Problem Status Onset Acute renal failure Acute Elevated troponin Acute Scalp laceration Acute Syncope Acute Cardiomyopathy Acute Chronic Disease Mgmt/Transitional Care Acute GLUTEAL HEMATOMA Acute Systolic CHF, acute on chronic Acute
--- NOTE | 2017-04-23 10:43 | PDIAF ---
- Diagnosis Diagnosis: fall, scalp laceration, acute kidney injury Code Status: Full Code - Medication Management Discharge Medications: Medications to Continue on Transfer Aspirin [Aspirin 81mg (*)] 81 mg PO DAILY 09/08/14 [Last Taken 04/19/17] Cholecalciferol Vit D3 [Vitamin D3 (*)] 1,000 units PO DAILY 09/08/14 [Last Taken 04/19/17] Levothyroxine [Synthroid 100 mcg (*)] 100 mcg PO DAILY06 09/08/14 [Last Taken ] ZOLPIDEM TARTRATE [Ambien CR 12.5 mg] 12.5 mg PO HS 09/08/14 [Last Taken ] Torsemide [Demadex] 20 mg PO DAILY10 08/12/15 [Last Taken 04/19/17] Warfarin Sodium [Coumadin 4MG (*)] 4 mg PO DAILY 08/12/15 [Last Taken 04/19/17] Losartan Potassium [Cozaar 50 mg (*)] 50 mg PO DAILY 03/01/17 [Last Taken ] Allopurinol [Allopurinol 300 MG (RX)] 300 mg PO DAILY 04/20/17 [Last Taken 04/19] Carvedilol [Coreg (*)] 12.5 mg PO BIDMEAL 04/20/17 [Last Taken 04/19/17 09:00] DULoxetine [Cymbalta 60 MG (*)] 60 mg PO DAILY 04/20/17 [Last Taken 04/19/17] Additional Medication Instructions: remove dean in head 05/03 Discharge Medications: Refer to the Discharge Home Medication list for PRN reason. PICC Care - Routine: N/A - Orders Services needed: Registered Nurse, Certified Manager Market Development, Physical Therapy, Occupational Therapy Isolation Type: None - Follow Up Care Current Providers and Referrals: NONE *PRIMARY CARE P,. [Primary Care Provider] - As per Instructions
--- NOTE | 2017-04-23 11:02 | GDS ---
[f rep st] DISCHARGE SUMMARY DISCHARGE DIAGNOSES: 1. Fall with scalp laceration. 2. Acute kidney injury, now resolved. 3. 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 4. Atrial fibrillation. 5. Compression fracture of T12. 6. Status post pacemaker. CONSULTATION: Neurosurgery who recommended a [place] brace when out of bed. HOSPITAL COURSE: The patient is admitted with a fall he did not recall. Subsequent evaluation revea led his sister found sound alcohol bottles in his room, in his house. He has previously not been a h eavy drinker. He did not have withdrawal while here. He also had a slightly elevated troponin in e setting of kidney injury that was not pursued. He had mild hyponatremia that resolved. Given the patient's innumerable falls and the fact that he was covered with bruises and cuts, in the presence of alcohol in his home as well as his chronic balance issues, warfarin was felt to be an uns afe option for him and was therefore discontinued. I have appraised his primary care physician of is. The patient is discharged to [facility] for ongoing rehabilitation. /[id number]/MODL
--- NOTE | 2017-04-23 11:09 | ASDISCHSUM ---
Discharge Information Plan Status:SNF Medically Cleared to Leave:04/23/2017 Discharge Date:04/23/2017 CM D/C Disposition:[facility] Facility ADT D/C Disposition: Projected Discharge Date:04/23/2017 01:00 PM Transportation at D/C:Wheelchair Van Discharge Delay Reason: Follow-Up Date:04/23/2017 01:00 PM Discharge Slot: Final Diagnosis: Placement Information Referral Type:*Long Term/SNF Referral ID:[facility]-[id number] Provider Name:Julianne Borja Address 1[address] Phone Number: Address 2: Fax Number: City:[place] Selection Factors: State:[place] Patient Contact Information Contact Name:ERICA Relationship:Sister Address:[address] City:[place] Alternate Phone: State/Zip Code:[place] [address] Email: Financial Information Financial Class:Medicare Primary Plan Desc:MEDICARE INPATIENT Primary Plan Number:[id number] Secondary Plan Desc: Secondary Plan Number:[id number] Assessment Information [facility] Initial CM Assessment Living Arrangements What is your living Answers: Alone arrangement? Who do you live with? Type Of Residence What kind of residence do Answers: House you live in? Discharge Plan Comments Coordination Status Comments Notes: CM spoke w/ MILDRED Morales regarding d/c POC. Pt is a 77 y/o female admitted for falling. Therapies have been ordered and awaiting recommendations. Pt lives in a 2 story home. Pt has been having multiple falls. Needs are TBD at this time. CM to follow. Plan: TBD Date Signed: 04/20/2017 09:25 AM Electronically Signed By:DUKE Rivera [facility] CM Progress Note CM Note CM Note Notes: CM met w/ pt and sister for dispo planning. PT is recommending SNF. Pt and sister would like referrals made to [facility] and [facility]. Referral sent to both facilities. Sister does not want pt going to [facility] or [place]. CM completed non triggering pasrr. CM to follow. Plan: SNF Date Signed: 04/20/2017 04:20 PM Electronically Signed By:DUKE Rivera [facility] CM Progress Note CM Note CM Note Notes: Chart reviewed. Met with patient to review discharge plan of care . He states he would prefer [facility]. He has been accepted to [facility], I have called [facility] and they have not been able to review referral as of yet. He tells me he has family touring both facilities today. Needs 3 midnights, CM to follow. Date Signed: 04/21/2017 12:52 PM Electronically Signed By:Belén Sims RN [facility] CM Progress Note CM Note CM Note Notes: Spoke w/Stephanie at [facility]- no bed availability this weekend. Spoke w/pt's enriqueta craft, who felt strongly that pt needed SNF. She does not feel he is safe to return home at this time. She was conceerned about empty vodka bottles that she found in pt's home; she said alcohol is not something he has struggled with but that it does run in his family and she wonderied if b/c of his paoin he was drinking more. Discussed this info w/Dr Yeh. Spoke w/pt several times today about rehab at [facility] which he is now agreeable to. Pt will likely dc in AM to to [facility], notified [facility] liason, and they are able to accept. CM should notify pt's sister Enriqueta of dc time; pt said she will be bringing him clothes tomorrow before dc. Date Signed: 04/22/2017 05:26 PM Electronically Signed By:Lala Aden RN Intervention Information Intervention Type:*BURGER-Signed Date of Service:04/20/2017 10:24 AM Patient Type:Observation Staff Member:Priscila Salazar Hours: Discipline: Severity: Comment: Intervention Type:*IM-Signed Date of Service:04/23/2017 10:14 AM Patient Type:Inpatient Staff Member:MILDRED Yeh, [facility] Hours: Discipline: Severity: Comment:
--- NOTE | 2017-04-23 11:11 | ASMTCMCOM ---
CM Note CM Note Notes: Spoke with MD. Dc order received. Met with pt to discuss; pt agreeable to dc poc. Spoke with pt's sister, Leonela ([phone]); confirmed Leonela will be bringing pt clothing prior to dc today. Spoke with Estephania, at [facility]; confirmed bed available for pt today; dc paperwork faxed; confirmed received. Estephania arranged transportation. Updated pt, Leonela & RN. No other needs at this time. Date Signed: 04/23/2017 11:11 AM Electronically Signed By:Sadia Yeh RN
[2017-04-23 11:15] VITALS: BP 109/81; PULSE 93; RESP 20; TEMP 98.7; O2SAT 93
== END 2017-04-23 13:37 | DRG 605 ==
LOC: INTOOBSV 22:17 → F2W 23:55 → OBSVTOIN 04-20 11:00 → F3E 04-22 18:52
PROVIDERS: ADMIT Student in an Organized Health Care Education/Training Program; ATTEND Student in an Organized Health Care Education/Training Program
PROC: 0HQ0XZZ Repair Scalp Skin, External Approach (ICD-10-PCS; principal; 2017-04-19)
DX: S01.01XA Laceration without foreign body of scalp, initial encounter (principal); S22.080A Wedge compression fracture of T11-T12 vertebra, initial encounter for closed fracture; N17.9 Acute kidney failure, unspecified; E87.1 Hypo-osmolality and hyponatremia; I48.91 Unspecified atrial fibrillation; W19.XXXA Unspecified fall, initial encounter; I10 Essential (primary) hypertension; M51.36 Other intervertebral disc degeneration, lumbar region; M48.062 Spinal stenosis, lumbar region with neurogenic claudication; M48.07 Spinal stenosis, lumbosacral region; Z95.810 Presence of automatic (implantable) cardiac defibrillator; Z86.73 Personal history of transient ischemic attack (TIA), and cerebral infarction without residual deficits
CPT/HCPCS: 92507-GN; 92523-GN; 97110-GP; 97116-GP; 97162-GP; 97165-GO; 97530-GO; 97535-GO; G8978-GP-CK; G8979-GP-CJ; G8987-GO-CI; G8988-GO-CI; G9165-GN-CI; G9166-GN-CI; G9167-GN-CI; J2405

== ENCOUNTER 2017-05-05 16:57 | Emergency (ER) | payer OTHER ==
--- NOTE | 2017-05-05 17:32 | EDPHY ---
H & P Stated Complaint: Had dean removed in head at PCP office;sent for eval infection @ site Time Seen by Provider: 05/05/17 17:24 HPI/ROS: CHIEF COMPLAINT: Possible infection on scalp HISTORY OF PRESENT ILLNESS: 77-year-old male was seen emergency department on post head injury, sustained a scalp laceration which was closed in the emergency department. He followed up with his primary care provider today to have his dean removed and it was noted that he had tenderness and fetid odor , referred PRIMARY CARE PROVIDER: Dr. Ricci Vasquez REVIEW OF SYSTEMS: A ten point review of systems was performed and is negative with the exception of the items mentioned in the HPI PAST MEDICAL & SURGICAL HISTORY: atrial fibrillation. SOCIAL HISTORY: Nonsmoker PHYSICAL EXAM (Prior to examination, patient consented to physical exam, hands were washed and my usual and customary physical exam procedures followed) 1) GENERAL: Well-developed, well-nourished, alert and oriented. Appears to be in no acute distress. 2) HEAD: Normocephalic, atraumatic. Multiple dean in place, wound partially dehisced, fetid odor. No crepitus.. 3) HEENT: Pupils equal, round, reactive to light bilaterally. Sclera anicteric. 4) NECK: Full range of motion, no meningeal signs. 5) LUNGS: Clear auscultation bilaterally, no wheezes, no rhonchi, no retractions. 6) HEART: Regular rate and rhythm, no murmur, no heave, no gallop. 7) ABDOMEN: No guarding, no rebound, no focal tenderness,, 8) MUSCULOSKELETAL: No peripheral edema or discoloration. 9) BACK: No visual or palpable abnormality. Hannah brace in place 10) SKIN: No rash, no petechiae. 11) Psychiatric: Patient is oriented X 3, there is no agitation. DIFFERENTIAL DIAGNOSIS: [In no particular include but limited to cellulitis, abscess, necrotizing fasciitis - Personal History Current Tetanus Diphtheria and Acellular Pertussis (TDAP): Yes - Medical/Surgical History Hx Asthma: No Hx Chronic Respiratory Disease: No Hx Diabetes: No Hx Cardiac Disease: No Hx Renal Disease: No Hx Cirrhosis: No Hx Alcoholism: No Hx HIV/AIDS: No Hx Splenectomy or Spleen Trauma: No Other PMH: pacemaker 2000, hypothyroid, colon resect , knee replacement (rt), 2 miniscus repairs rt shoulder (,), extreme weakness, prostate cancer 2009, A. FIB. 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" - Social History Smoking Status: Never smoked Constitutional: Initial Vital Signs Temperature (C) 36.7 C 05/05/17 17:15 Heart Rate 91 05/05/17 17:15 Respiratory Rate 18 05/05/17 17:15 Blood Pressure 117/81 H 05/05/17 17:15 O2 Sat (%) 97 05/05/17 17:15 O2 Delivery Mode Room Air Allergies/Adverse Reactions: No Known Allergies Allergy (Verified 05/05/17 17:17) Home Medications: Medication Instructions Recorded Aspirin [Aspirin 81mg (*)] 81 mg PO DAILY 09/08/14 Cholecalciferol Vit D3 [Vitamin D3 1,000 units PO DAILY 09/08/14 (*)] Levothyroxine [Synthroid 100 mcg 100 mcg PO DAILY06 09/08/14 (*)] Torsemide [Demadex] 20 mg PO DAILY10 08/12/15 Warfarin Sodium [Coumadin 4MG (*)] 4 mg PO DAILY16 08/12/15 Losartan Potassium [Cozaar 50 mg 50 mg PO DAILY 03/01/17 (*)] Allopurinol [Allopurinol 300 MG 300 mg PO DAILY 04/20/17 (RX)] Carvedilol [Coreg (*)] 12.5 mg PO BIDMEAL 04/20/17 DULoxetine [Cymbalta 60 MG (*)] 60 mg PO DAILY 04/20/17 Cephalexin [Keflex] 500 mg PO TID 10 Days cap 05/05/17 Sulfamethox/Tmp 800/160 mg 1 tab PO BID@1000,2200 10 Days tab 05/05/17 [Bactrim Ds] Medical Decision Making ED Course/Re-evaluation: 610 pm: Wound culture obtained and pending. Patient also seen and examined by Dr Hall. Doubt necrotizing fasciitis. Doubt abscess.Patient dean have been removed the wound was copiously irrigated will be allowed to heal via secondary intention. I think the patient would benefit from follow up with the wound clinic. Subsequently I spoke with the infectious disease physician track repair person Dr. Tariq Patterson at 6:09 p.m. who recommended the patient contact the wound clinic on Monday (today is Monday) for follow-up. Also recommend patient follow up with primary care provider. I am starting the patient on Keflex and Bactrim. He has been informed that he will need closer monitoring of his INR. Departure - Departure Disposition: Home, Routine, Self-Care Clinical Impression: Infected wound Condition: Good Instructions: Wound Infection (DC), Wound Infection (ED) Additional Instructions: Return to the ER if you develop redness, swelling, discharge, warmth to the wound, fever, chills or any other symptoms that concern you. Referrals: Frantz Vasquez MD [Primary Care Provider] - 05[facility]08[facility] - 05/08/17 (Call the wound clinic on Monday to be seen next week) Prescriptions: Cephalexin [Keflex] 500 mg PO TID 10 Days cap Sulfamethox/Tmp 800/160 mg [Bactrim Ds] 1 tab PO BID@1000,2200 10 Days tab
[2017-05-05 18:28] VITALS: BP 123/78
== END 2017-05-05 18:28 | disposition home or self-care (01) ==
DX: T81.4XXA Infection following a procedure, initial encounter (principal); Z79.01 Long term (current) use of anticoagulants; Z79.82 Long term (current) use of aspirin; Z85.46 Personal history of malignant neoplasm of prostate; Z95.0 Presence of cardiac pacemaker; Y82.9 Unspecified medical devices associated with adverse incidents

== ENCOUNTER 2017-05-18 08:08 | Inpatient (IN) | payer OTHER ==
[2017-05-18] MEDS ORDERED: THROMBIN (BOVINE) 20,000 UNIT VIAL TP ONE (08:20)
[2017-05-18] MEDS ORDERED: BUPIVACAINE 0.25% 30 ML SDV ONE (08:20)
[2017-05-18] MEDS ORDERED: BACITRACIN 50,000 UNITS/10 ML SYR IRR ONE (08:21)
[2017-05-18] MEDS ORDERED: AVITENE POWDER 1 GM JAR TP ONE (08:21)
[2017-05-18] MEDS ORDERED: MIDAZOLAM 2 MG/2 ML VIAL IVP ONE (08:27)
[2017-05-18] MEDS ORDERED: LR 1,000 ML IV ONE (08:33)
[2017-05-18] MEDS ORDERED: LIDOCAINE 1% 2 ML INJ ID PRN (08:33)
[2017-05-18] MEDS ORDERED: GABAPENTIN 300 MG CAP PO ONE (08:43)
[2017-05-18] MEDS ORDERED: ceFAZolin 2 GM/SWFI 2 GM/20 ML SYR IVP ONE (08:43)
[2017-05-18] MEDS ORDERED: morphINE PF 5 MG/10 ML INJ IT ONE (08:43)
[2017-05-18] MEDS ORDERED: ACETAMINOPHEN 500 MG TAB PO ONE (08:43)
--- NOTE | 2017-05-18 09:34 | PDHPUP ---
History & Physical Update H&P update statement: This history and physical update is based on an assessment of the patient which was completed after admission or registration (within 24 hours), but prior to the surgery/procedure. H&P update: H&P reviewed & patient examined, no change in patient's condition since H&P completed (Consents signed and site marked. All questions answered. He understands this is not for back pain but his leg pain and weakness. He wishese to proceed. )
[2017-05-18 09:35] LABS: INR 1.22 (0.83-1.16); PROTIME(PATIENT) 15.6 SEC (12.0-15.0)
[2017-05-18] MEDS ORDERED: PROPOFOL/EMULSION 500 MG/50 ML BOTTLE IV ONE (10:02)
[2017-05-18] MEDS ORDERED: fentaNYL 250 MCG/5 ML INJ ONE (10:07)
--- NOTE | 2017-05-18 10:20 | PDANEPAE ---
ANE History of Present Illness 77 Year old male for L4-S1 laminectomy. 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 Obese, HTN, cardiomyopatjhy. ANE Past Medical History - Cardiovascular History Hx Hypertension: Yes Hx Arrhythmias: No Hx Chest Pain: No Hx Coronary Artery / Peripheral Vascular Disease: No Hx CHF / Valvular Disease: No Cardiovascular History Comment: Ablation and pacer 2000 - Pulmonary History Hx COPD: No Hx Asthma/Reactive Airway Disease: No Hx Recent Upper Respiratory Infection: No Hx Oxygen in Use at Home: No O2 in Use at Home (L/minute): 2L NC for sleep Hx Sleep Apnea: No Sleep Apnea Screening Result - Last Documented: Negative Pulmonary History Comment: occasional use of O2 - Neurologic History Hx Cerebrovascular Accident: No Hx Seizures: No Hx Dementia: No Neurologic History Comment: mini-stroke involving inner ear 2008. - Endocrine History Hx Diabetes: No Endocrine History Comment: low thyroid - Renal History Hx Renal Disorders: No - Liver History Hx Hepatic Disorders: No - Neurological & Psychiatric Hx Hx Neurological and Psychiatric Disorders: Yes Neurological / Psychiatric History Comment: "Occ sciatica pain" bilat. Pinched nerve, bone spur-low back pain with walking. - Cancer History Hx Cancer: Yes Cancer History Comment: prostate CA tx w/radiation - Congenital Disorder History Hx Congenital Disorders: No - GI History Hx Gastrointestinal Disorders: Yes Gastrointestinal History Comment: multiple polyps -colonoscopy. 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 colon resection. 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: [employer] Date Pacemaker Last Checked: 03-03-17 ANE Patient History - Allergies Allergies/Adverse Reactions: No Known Allergies Allergy (Verified 05/05/17 17:17) - Home Medications Home Medications: Aspirin [Aspirin 81mg (*)] 81 mg PO DAILY 09/08/14 [Last Taken 6 Days Ago ~05/12] Cholecalciferol Vit D3 [Vitamin D3 (*)] 1,000 units PO DAILY 09/08/14 [Last Taken 1 Day Ago ~05/17/17] Levothyroxine [Synthroid 100 mcg (*)] 100 mcg PO DAILY06 09/08/14 [Last Taken 1 Day Ago ~05/17/17] Torsemide [Demadex] 20 mg PO DAILY10 08/12/15 [Last Taken 1 Day Ago ~05/17/17] Warfarin Sodium [Coumadin 4MG (*)] 4 mg PO DAILY16 08/12/15 [Last Taken 6 Days Ago ~05/12/17] Losartan Potassium [Cozaar 50 mg (*)] 50 mg PO DAILY 03/01/17 [Last Taken 3 Weeks Ago ~04/27/17] Allopurinol [Allopurinol 300 MG (RX)] 300 mg PO DAILY 04/20/17 [Last Taken 1 Day Ago ~05/17/17] Carvedilol [Coreg (*)] 12.5 mg PO BIDMEAL 04/20/17 [Last Taken 1 Day Ago ~] DULoxetine [Cymbalta 60 MG (*)] 60 mg PO DAILY 04/20/17 [Last Taken 1 Day Ago ~ 05/17/17] - NPO status NPO Since - Liquids (Date): 05/18/17 NPO Since - Liquids (Time): 04:00 NPO Since - Solids (Date): 05/17/17 NPO Since - Solids (Time): 19:00 - Smoking Hx Smoking Status: Never smoked ANE Labs/Vital Signs - Vital Signs Blood Pressure: 117/82 Heart Rate: 87 Respiratory Rate: 18 O2 Sat (%): 96 Height: 180.34 cm Weight: 113.398 kg ANE Physical Exam - Airway Neck exam: FROM Mallampati Score: Class 2 Mouth exam: normal dental/mouth exam - Pulmonary Pulmonary: no respiratory distress - Cardiovascular Cardiovascular: regular rate and rhythym - ASA Status ASA Status: III (Paced at VOO 80) ANE Anesthesia Plan Anesthesia Plan: general endotracheal anesthesia
[2017-05-18] MEDS ORDERED: CHLORHEXIDINE GLUC HIBICLENS 118 ML BTL TP ONE (10:24)
[2017-05-18] MEDS ORDERED: PROMETHAZINE HCL 25 MG/ML INJ IVP PRN ×2 (11:05→12:41)
[2017-05-18] MEDS ORDERED: MEPERIDINE 25 MG/ML SYR IVP PRN (11:05)
[2017-05-18] MEDS ORDERED: oxyCODONE IR 5 MG TAB PO PRN (11:05)
[2017-05-18] MEDS ORDERED: DEXAMETHASONE 4 MG/ML VIAL IVP PRN (11:05)
[2017-05-18] MEDS ORDERED: NALOXONE HCL 0.4 MG/ML INJ IVP PRN (11:05)
[2017-05-18] MEDS ORDERED: ALBUTEROL 3 ML DEYVIAL IH PRN (11:05)
[2017-05-18] MEDS ORDERED: LABETALOL HCL 5 MG/ML 20 ML MDV IVP PRN (11:05)
[2017-05-18] MEDS ORDERED: PHENYLEPHRINE HCL 100 MCG/ML SYR IVP PRN (11:05)
[2017-05-18] MEDS ORDERED: ONDANSETRON 4 MG/2 ML VIAL IVP PRN ×2 (11:05→12:41)
[2017-05-18] MEDS ORDERED: PROPOFOL 200 MG/20 ML VIAL ONE (11:41)
[2017-05-18] MEDS ORDERED: HYDROmorphONE/DILAUDID 1 MG/ML INJ IVP PRN (12:41)
[2017-05-18] MEDS ORDERED: ONDANSETRON DISINTEGRATING 4 MG TAB PO PRN (12:41)
[2017-05-18] MEDS ORDERED: MAGNESIUM HYDROXIDE 30 ML UDCUP PO PRN (12:41)
[2017-05-18] MEDS ORDERED: BISACODYL 10 MG SUPP PR PRN (12:41)
[2017-05-18] MEDS ORDERED: LACTULOSE 20 GM/30 ML UDCUP PO PRN (12:41)
[2017-05-18] MEDS ORDERED: POLYETHYLENE GLYCOL 3350 17 GM PKT PO PRN (12:41)
[2017-05-18] MEDS ORDERED: diphenhydrAMINE 25 MG CAP PO PRN (12:41)
[2017-05-18] MEDS ORDERED: NS W/ 20 KCl/L 1,000 ML IV SCH (12:45)
--- NOTE | 2017-05-18 13:02 | POSTOPPROG ---
Post Op Note Date of Operation: 05/18/17 Surgeon: Beena Skinner Airveyor Operator: Mary Skinner PA-C Anesthesiologist: Morteza Anesthesia: GET(General Endotracheal) Pre-op Diagnosis: lumbar stenosis Post-op Diagnosis: same Indication: leg weakness Procedure: L4-S1 laminectomy with bilateral foraminotomies Findings: Please see dictation Inf/Abcess present in the surg proc area at time of surgery?: No Depth: Organ Space EBL: 100-500 Complications: none Drains: Yusuf Perdomo Specimen(s): none PA Addendum - Addendum .: S: Pt awake in PACU, denies pain. O: AAOx3 NAD VSS MAEx4 Motor 5/5 BLE with exception of R EHL 4-/5, L EHL 4/5 Incision dressed cdi jpx1 A: 77 yo M s/p L4-S1 laminectomy with bilateral foraminotomies P: Admit to obs Pacemaker rep to check pacemaker post op Has pre existing scalp wound that is healing Had pre op leg weakness that is stable PT/OT Pain management TEDs, SCDs lovenox POD#1 May need SNF placement Call NS with any issues D/w Dr Caceres
[2017-05-18] MEDS ORDERED: fentaNYL 100 MCG/2 ML INJ ONE (13:28)
[2017-05-18] MEDS: fentaNYL 100 MCG/2 ML INJ IVP PRN ×2 (13:29→14:23)
[2017-05-18] MEDS ORDERED: ceFAZolin 2 GM/DEXTROSE 100 ML IV SCH (14:00)
--- NOTE | 2017-05-18 14:20 | GOP ---
[f rep st] OPERATIVE REPORT DATE OF OPERATION: 05/18/2017 SURGEON: Sheldon Caceres MD GLASSWARE SELECTOR: Beena Skinner, CLAUDINE. ANESTHESIA: General. PREOPERATIVE DIAGNOSIS: 1. Spondylosis, lumbar, severe spinal stenosis L4-L5, L5-S1 with bilateral lateral recess and foraminal stenosis. 2. Lower extremity weakness and claudication. 3. Treatment-refractory nonoperative intervention. POSTOPERATIVE DIAGNOSIS: 1. Spondylosis, lumbar, severe spinal stenosis L4-L5, L5-S1 with bilateral lateral recess and foraminal stenosis. 2. Lower extremity weakness and claudication. 3. Treatment-refractory nonoperative intervention. PROCEDURE PERFORMED: 1. Posterior decompressive laminectomy with bilateral medial facetectomies and foraminotomies at L4-L5 and L5-S1. 2. Use of intraoperative fluoroscopy, less than 1 hour physician time. 3. Use of neuromonitoring. 4. Use of operating microscope. 5. Use of intraoperative fluoroscopy, less than 1 hour physician time. FINDINGS: per imaging SPECIMENS: None. ESTIMATED BLOOD LOSS: 250 mL. INDICATIONS: The patient is a 77-year-old gentleman who presented to our office with worsening low back pain as well as lower extremity weakness to the point where he was crawling up the stairs because he had such profound weakness in his bilateral lower extremities including some claudication. The patient had imaging studies consistent with diffuse spondylosis, had diffuse spondylosis throughout the lumbar spine with severe spinal stenosis L4-L5, L5- S1 bilateral lateral recess and foraminal stenosis. Given his age, multiple comorbidities, we decided to proceed forth with surgical intervention as described above. The patient understood that this was not going to help his back pain, but was more indicated for his lower extremity weakness and claudication. DESCRIPTION OF PROCEDURE: The patient was brought to operating theater and underwent general endotracheal anesthesia without complications. He had Venodynes, MAIRA hose, and the appropriate lines placed by Anesthesia. He was flipped prone onto the Cecil frame, and all bony processes inspected and padded. Using lateral fluoroscopy and a spinal needle, we picked our entry point to the L4 through S1 levels. This was marked in the midline. The lower lumbar region prepped and draped in the usual sterile surgical fashion. A time- out was completed per protocol and the patient received antibiotics within 1 hour of incision. The incision was infiltrated with Marcaine with epinephrine and taken down with the scalpel blade. Using monopolar, the incision was taken down the midline to the lumbodorsal fascia. A subperiosteal dissection was carried out to the medial facet joints of L4-L5 and L5-S1. Deep retractors were placed to maintain exposure. We confirmed our level using lateral fluoroscopy. Using combination of the bur tip on the drill bit, Kerrison punches, and a Leksell rongeur, we completed a decompressive laminectomy with bilateral mesial facetectomies, L4-L5 and L5-S1. The patient's foramina were noted to be quite tight at the L4-L5 level. We continued with our decompression and foraminotomies using the Kerrison punches. Once we felt that everything was well decompressed, we obtained hemostasis with the bipolar. The wound was irrigated copiously with bacitracin irrigation and closed in multiple layers including Vicryl sutures for the deep layers and Dermabond for the skin. The patient's wounds were dressed sterilely. He was flipped supine onto the transport cart, where he was awakened, extubated, and taken to the recovery room in stable condition. There were no complications and no noted changes on neuromonitoring throughout the procedure. COMPLICATIONS: None. /[id number]/MODL MTDD
[2017-05-18] MEDS: ACETAMINOPHEN 500 MG TAB PO SCH ×2 (16:25→20:20)
[2017-05-18] MEDS: ceFAZolin 2 GM/SWFI 2 GM/20 ML SYR IVP SCH (18:07)
[2017-05-18] MEDS: CARVEDILOL 6.25 MG TAB PO SCH (18:07)
[2017-05-18] MEDS: oxyCODONE IR 5 MG TAB PO PRN (20:21)
[2017-05-18] MEDS: METHOCARBAMOL 750 MG TAB PO PRN (20:21)
[2017-05-18] MEDS: FAMOTIDINE 20 MG TAB PO SCH (20:21)
[2017-05-18] MEDS: SENNOSIDES/DOCUSATE SODIUM TAB PO SCH (20:21)
[2017-05-19] MEDS: ceFAZolin 2 GM/SWFI 2 GM/20 ML SYR IVP SCH (02:40)
[2017-05-19] MEDS: oxyCODONE IR 5 MG TAB PO PRN ×3 (02:41→20:16)
[2017-05-19] MEDS: ACETAMINOPHEN 500 MG TAB PO SCH ×3 (05:42→23:42)
[2017-05-19] MEDS: LEVOTHYROXINE 100 MCG TAB PO SCH (05:42)
--- NOTE | 2017-05-19 09:03 | NEUSURGPN ---
Assessment/Plan: A: 77 yo M s/p L4-S1 laminectomy with bilateral foraminotomies POD#1 P: Admit to obs Has pre existing scalp wound that is healing Had pre op leg weakness that is stable PT/OT Pain management TEDs, SCDs lovenox POD#1 DWAINE drain productive, leave in place for now Dispo: home later today if continues to do well Call NS with any issues D/w Dr Caceres Subjective: Pt resting in bed, states pain is tolerable. Has been able to get up and walk. Objective: AAOx3 NAD VSS MAEx4 Motor 5/5 BLE with exception of right DF 3+/5, left DF 4-/5 +LT Incision dressed DWAINE drain with bloody dc in bulb Urinary Catheter in Place: No - Physician Discussed Patient with : Nicki Neurosurgery Physical Exam - Vitals, I&O, Labs I and O 05/18/17 05/19/17 05/20/17 05:59 05:59 05:59 Intake Total 550 Output Total 1793 Balance -1243 Weight 113.398 kg Intake: Oral (ml) 550 Output: Urine (ml) 1650 Urinal 1650 DWAINE Drain Output (ml) 143 #1 Back 143 Other: Intake Quantity Yes Sufficient Bladder Scan Volume (ml) Urinal 833 Post Void Residual Scan Volume (ml) Urinal 301 Vital Signs Temp Pulse Resp BP Pulse Ox 36.9 C 86 16 136/94 H 98 05/19/17 07:57 05/19/17 07:57 05/19/17 07:57 05/19/17 07:57 05/19/17 07:57 ICD10 Worksheet Patient Problems: Problems Problem Status Onset Acute renal failure Acute Cardiomyopathy Acute Chronic Disease [facility]/Transitional Care Acute Elevated troponin Acute GLUTEAL HEMATOMA Acute Scalp laceration Acute Syncope Acute Systolic CHF, acute on chronic Acute
--- NOTE | 2017-05-19 11:24 | ASMTCMCOM ---
CM Note CM Note Notes: PT/OT recommending that pt have at least HHC. Pt is refusing SNF; he was recently at [facility] and did not have good experience. Pt lives at home independantly. We discussed dc plan. He says he has sister and neice who will be able to come over and help him as needed. Pt is open to HHC, would like to use [facility]. Notified mukesh at [facility]. [facility] info given to pt as requested and he declined MOW info. CM will follow. Date Signed: 05/19/2017 11:23 AM Electronically Signed By:Lala Aden RN
[2017-05-19] MEDS: DULoxetine 60 MG CAP PO SCH (11:26)
[2017-05-19] MEDS: ALLOPURINOL 300 MG TAB PO SCH (11:26)
[2017-05-19] MEDS: LOSARTAN POTASSIUM 50 MG TAB PO SCH (11:27)
[2017-05-19] MEDS: FAMOTIDINE 20 MG TAB PO SCH ×2 (11:27→20:16)
[2017-05-19] MEDS: CHOLECALCIFEROL VIT D3 1,000 UNITS TAB PO SCH (11:27)
[2017-05-19] MEDS: CARVEDILOL 6.25 MG TAB PO SCH ×2 (11:27→18:32)
[2017-05-19] MEDS: ENOXAPARIN 40 MG/0.4 ML SYR SC SCH (11:28)
[2017-05-19] MEDS: SENNOSIDES/DOCUSATE SODIUM TAB PO SCH ×2 (11:30→20:16)
[2017-05-19] MEDS: TORSEMIDE 20 MG TAB PO SCH (11:31)
[2017-05-19] MEDS ORDERED: HYDROmorphone HCL/NS 0.5 MG/ML SYR IVP PRN (15:30)
--- NOTE | 2017-05-19 16:30 | PDMN ---
Medical Necessity Medical necessity: Pt meets INPT criteria per MD/PA as of 05/19/17 (est. LOS >2 MN for ongoing eval/mgmt, need for PT/OT s/p L4-S1 lami).
--- NOTE | 2017-05-19 17:47 | ASMTCMCOM ---
CM Note CM Note Notes: [facility] not able to accept pt in case that he needs RN. [facility] able to accept, referral sent and Madai from [facility] met w/pt. Possible dc home tomorrow. Date Signed: 05/19/2017 05:46 PM Electronically Signed By:Lala Aden RN
[2017-05-19] MEDS: METHOCARBAMOL 750 MG TAB PO PRN (20:15)
[2017-05-20] MEDS: LEVOTHYROXINE 100 MCG TAB PO SCH (05:19)
[2017-05-20] MEDS: ACETAMINOPHEN 500 MG TAB PO SCH (05:19)
[2017-05-20] MEDS: oxyCODONE IR 5 MG TAB PO PRN (05:20)
[2017-05-20 07:27] VITALS: BP 135/84
[2017-05-20] MEDS: SENNOSIDES/DOCUSATE SODIUM TAB PO SCH (11:04)
[2017-05-20] MEDS: CHOLECALCIFEROL VIT D3 1,000 UNITS TAB PO SCH (11:04)
[2017-05-20] MEDS: ALLOPURINOL 300 MG TAB PO SCH (11:04)
[2017-05-20] MEDS: DULoxetine 60 MG CAP PO SCH (11:04)
[2017-05-20] MEDS: LOSARTAN POTASSIUM 50 MG TAB PO SCH (11:04)
[2017-05-20] MEDS: CARVEDILOL 6.25 MG TAB PO SCH (11:05)
[2017-05-20] MEDS: FAMOTIDINE 20 MG TAB PO SCH (11:05)
[2017-05-20] MEDS: ENOXAPARIN 40 MG/0.4 ML SYR SC SCH (11:05)
[2017-05-20] MEDS: TORSEMIDE 20 MG TAB PO SCH (11:21)
--- NOTE | 2017-05-20 12:16 | NEUSURGPN ---
Date of Surgery: 05/18/17 Post Op Day: 2 Assessment/Plan: 77 yo M s/p L4-S1 laminectomy with bilateral foraminotomies POD#2, doing well. P: dispo today Call NS with any issues D/w Dr Caceres Subjective: doing well, feel like his toe strength is improving Objective: NAD VSS AAOx3 eomi, pearla cnii-xii grossly intact MAEx4 5/5 except EHL; 4/5 left, 3/5 right SILT incision dressed, cdi - Physician Discussed Patient with : Nicki Neurosurgery Physical Exam - Vitals, I&O, Labs I and O 05/19/17 05/20/17 05/21/17 05:59 05:59 05:59 Intake Total 550 1000 Output Total 1793 300 Balance -1243 700 Weight 113.398 kg Intake: Oral (ml) 550 1000 Output: Urine (ml) 1650 300 Urinal 1650 300 DWAINE Drain Output (ml) 143 #1 Back 143 Other: Intake Quantity Yes Yes Sufficient Bladder Scan Volume (ml) Urinal 833 Post Void Residual Scan Volume (ml) Urinal 301 Vital Signs Temp Pulse Resp BP Pulse Ox 36.4 C 70 16 135/84 H 96 05/20/17 07:24 05/20/17 11:05 05/20/17 07:24 05/20/17 11:05 05/20/17 07:24 ICD10 Worksheet Patient Problems: Problems Problem Status Onset Acute renal failure Acute Cardiomyopathy Acute Chronic Disease Mgmt/Transitional Care Acute Elevated troponin Acute GLUTEAL HEMATOMA Acute Scalp laceration Acute Syncope Acute Systolic CHF, acute on chronic Acute
--- NOTE | 2017-05-20 12:29 | PDIAF ---
- Diagnosis Code Status: Full Code - Medication Management Discharge Medications: Medications to Continue on Transfer Cholecalciferol Vit D3 [Vitamin D3 (*)] 1,000 units PO DAILY 09/08/14 [Last Taken 1 Day Ago ~05/17/17] Levothyroxine [Synthroid 100 mcg (*)] 100 mcg PO DAILY06 09/08/14 [Last Taken 1 Day Ago ~05/17/17] Torsemide [Demadex] 20 mg PO DAILY10 08/12/15 [Last Taken 1 Day Ago ~05/17/17] Losartan Potassium [Cozaar 50 mg (*)] 50 mg PO DAILY 03/01/17 [Last Taken 3 Weeks Ago ~04/27/17] Allopurinol [Allopurinol 300 MG (RX)] 300 mg PO DAILY 04/20/17 [Last Taken 1 Day Ago ~05/17/17] Carvedilol [Coreg (*)] 12.5 mg PO BIDMEAL 04/20/17 [Last Taken 1 Day Ago ~] DULoxetine [Cymbalta 60 MG (*)] 60 mg PO DAILY 04/20/17 [Last Taken 1 Day Ago ~ 05/17/17] Acetaminophen [Tylenol ES 500 mg (*)] 1,000 mg PO Q8HRS tab 05/20/17 [Last Taken Unknown] Enoxaparin [Lovenox 40 MG (*)] 40 mg SC DAILY syr 05/20/17 [Last Taken Unknown] Methocarbamol [Robaxin 750 mg (*)] 750 mg PO QID PRN tab 05/20/17 [Last Taken Unknown] Sennosides/Docusate Sodium [Senokot-S] 1 - 2 tab PO BID tab 05/20/17 [Last Taken Unknown] oxyCODONE IR [Oxycodone Ir (*)] 5 - 10 mg PO Q4HRS PRN tab 05/20/17 [Last Taken Unknown] Discharge Medications: Refer to the Discharge Home Medication list for PRN reason. - Orders Services needed: Home Care, Registered Nurse, Physical Therapy, Occupational Therapy Home Care Face to Face: I certify that this patient was under my care and that I had the required [id number] encounter meeting the encounter requirements on the discharge day. My findings support the fact that the patient is homebound as defined in Home Care Face to Face Continued: [facility] Chapter 7 Medicare Benefits Manual 30.1.1 , The condition of the patient is such that there exists a normal inability to leave home and consequently, leaving home would require a considerable and taxing effort. Isolation Type: None Diet Recommendation: no restrictions on diet Diet Texture: Regular Texture Diet Additional Instructions: you may restart you coumadin on 1 week post op. you may continue your lovenox until you are therapeutic. No bending twisting lifting >15 lbs. - Follow Up Care Current Providers and Referrals: Frantz Vasquez MD [Primary Care Provider] -
--- NOTE | 2017-05-20 13:07 | ASMTCMCOM ---
CM Note CM Note Notes: Pt ready for DC today. Final orders and meds faxed to [facility]. Date Signed: 05/20/2017 01:06 PM Electronically Signed By:Mona Bruner LCSW
--- NOTE | 2017-05-20 14:35 | ASDISCHSUM ---
Discharge Information Plan Status: Medically Cleared to Leave: Discharge Date:05/20/2017 02:06 PM D/C Disposition: [facility] D/C Disposition:[id number] Projected Discharge Date:05/20/2017 11:00 AM Transportation at D/C: Discharge Delay Reason: Follow-Up Date:05/20/2017 11:00 AM Discharge Slot: Final Diagnosis: Placement Information Referral Type:*Home Health Care Services Referral ID:[id number] Provider Name:[facility] [place] Address 1:[address] [place] [address] Address 2: City:[place] Selection Factors: State:[place] Patient Contact Information Contact Name:ERICA Relationship:Sister Address:[address] City:[place] Alternate Phone: State/Zip Code:[place] [address] Email: Financial Information Financial Class:Medicare Primary Plan Desc:MEDICARE OUTPATIENT Primary Plan Number:[id number] Secondary Plan Desc: Secondary Plan Number:[id number] Assessment Information [facility] CM Progress Note CM Note CM Note Notes: PT/OT recommending that pt have at least HHC. Pt is refusing SNF; he was recently at [facility] and did not have good experience. Pt lives at home independantly. We discussed dc plan. He says he has sister and neice who will be able to come over and help him as needed. Pt is open to [facility], would like to use [facility]. Notified mukesh at [facility]. [facility] info given to pt as requested and he declined MOW info. CM will follow. Date Signed: 05/19/2017 11:23 AM Electronically Signed By:Lala Aden RN [facility] CM Progress Note CM Note CM Note Notes: [facility] not able to accept pt in case that he needs RN. [facility] able to accept, referral sent and Madai from met w/pt. Possible dc home tomorrow. Date Signed: 05/19/2017 05:46 PM Electronically Signed By:Lala Aden RN [facility] CM Progress Note CM Note CM Note Notes: Pt ready for DC today. Final orders and meds faxed to [facility]. Date Signed: 05/20/2017 01:06 PM Electronically Signed By:Mona Bruner LCSW Intervention Information Intervention Type:*BURGER-Signed Date of Service:05/19/2017 02:37 PM Patient Type:Observation Staff Member:Priscila Salazar Hours: Discipline: Severity: Comment: Intervention Type:*Occurence 72 Date of Service:05/18/2017 12:41 PM Patient Type:Inpatient Staff Member:MILDRED Monzon, Ngoc Hours:0.25 Discipline: Severity:1 (0-1 Hours) Comment: Occ 72 for 05/18/2017 12:41 to 05/20/19 18 16:23 as patient discharged 05/20/2017 12:24 (< 2 MN LOS after patient admsision status changed from observation to inpatient status)
== END 2017-05-20 14:06 | disposition home health service (06) | DRG 520 ==
LOC: OBSVTOIN 08:08 → F3N 08:08
PROVIDERS: ADMIT Neurological Surgery; ATTEND Neurological Surgery
PROC: 4A1004G Monitoring of Central Nervous Electrical Activity, Intraoperative, Open Approach (ICD-10-PCS; principal; 2017-05-18 10:15)
PROC: 8E0WXBZ Computer Assisted Procedure of Trunk Region (ICD-10-PCS; principal; 2017-05-18 10:15)
PROC: 00NY0ZZ Release Lumbar Spinal Cord, Open Approach (ICD-10-PCS; principal; 2017-05-18 10:15)
DX: M48.062 Spinal stenosis, lumbar region with neurogenic claudication (principal); M54.40 Lumbago with sciatica, unspecified side; M47.896 Other spondylosis, lumbar region; M47.897 Other spondylosis, lumbosacral region; M48.07 Spinal stenosis, lumbosacral region; I10 Essential (primary) hypertension; E66.9 Obesity, unspecified; Z95.0 Presence of cardiac pacemaker; Z85.46 Personal history of malignant neoplasm of prostate
CPT/HCPCS: 97116-GP; 97161-GP; 97165-GO; 97530-GP; 97535-GO; G8978-GP-CJ; G8979-GP-CI; G8980-GP-CI; G8987-GO-CJ; G8988-GO-CI; J0171; J0690; J1650; J2250; J2370; J2704; J3010

== ENCOUNTER 2017-06-13 09:16 | Inpatient (IN) | payer OTHER ==
--- NOTE | 2017-06-13 09:29 | EDPHY ---
H & P Time Seen by Provider: 06/13/17 09:21 HPI/ROS: HPI Stroke alert. 77-year-old male by ambulance from home. Family member reported the patient was up, ambulatory and at a baseline mental status and speech at 8:00 a.m.. Family member found the patient on the floor at 8:15 a.m. of his apartment. EMS called seen. EMS reported to me the patient had slurred speech and they thought a left-sided facial droop. On arrival and initial neurologic assessment the patient's speech is at baseline. He appears slightly intoxicated and admits to drinking vodka recently. He does have a history of alcohol abuse. He is also on oxycodone and Ambien after having recent back surgery. Family reports that he has not been managing these medications well. Per additional history from family the patient has some mildly slurred speech at baseline. The patient also has a history of recent falls from his couch in his bed. There is a vague history of recent fall down some stairs but we cannot verify this at this time. ROS: Constitutional: No fever, no chills. As above. Eyes: No discharge. No changes in vision. ENT: No sore throat. No nasal congestion or rhinorrhea. Respiratory: No cough. No shortness of breath. Cardiac: No chest pain, no palpitations. Gastrointestinal: No abdominal pain, no vomiting, no diarrhea. Genitourinary: No hematuria. No dysuria or increased frequency with urination. Musculoskeletal: No back pain. No neck pain. No myalgias or arthralgias. Skin: No rashes. Neurological: No headache. No focal weakness or altered sensation. Past medical history: Recent back surgery L5-S1. Pacemaker in 2000, hypothyroidism, colon resection, right knee replacement, right shoulder surgery , prostate cancer, atrial fibrillation, possible TIA. Currently on Coumadin. Social history: Here by himself. Family is nearby. History of alcohol abuse. Currently lives by himself. Physical Exam: General Appearance: Sleepy but easily arousable, moderately obese, no distress. This patient is responding to questions appropriately and in full sentences albeit with slurred speech. This patient appears well-hydrated and well-nourished. Head: Normocephalic atraumatic. Face: Facial bones are stable on palpation. Eyes: Pupils equal and round and reactive to light, no pallor or injection. No lid erythema or edema. ENT, Mouth: Mucous membranes moist. Dentition is intact. No malocclusion of the jaw. No tongue lacerations or abrasions. Pharynx is clear. The bilateral nasal canals are clear. No septal hematoma. Respiratory: There are no retractions, lungs are clear to auscultation with good air movement bilaterally. Chest wall is stable to AP and lateral palpation. Cardiovascular: Regular rate and rhythm. No murmur. Gastrointestinal: Abdomen is soft and nontender, no masses, bowel sounds normal. Neurological: Motor sensory function is intact. Cranial nerves are normal. Cerebellar function intact. Skin: Warm and dry, no rashes. Superficial abrasions dorsal distal feet, no suturable laceration. Musculoskeletal: Neck is supple and nontender. The trachea is midline. No midline cervical, thoracic, lumbar or sacral tenderness on palpation. No flank tenderness on palpation. Midline 4 cm LS spine surgical scars clean dry and intact. Extremities are symmetrical, full range of motion. All joints in the bilateral upper and bilateral lower extremities range without pain or impingement. No tenderness on palpation of the long bones in the bilateral upper and bilateral lower extremities. Psychiatric: No agitation. No depression. Database: EKG: EKG time is 9:46 a.m.; EKG shows a ventricular paced rhythm with nonspecific intraventricular conduction delay. The [place], QRS, QT intervals are within normal limits. There are no ST-T wave changes indicative of ischemic or injury pattern. No evidence of right heart strain. Interpreted by me. Imaging: CT head without contrast: Negative. CT angiogram of head and neck: Negative. CT cervical spine without contrast: Negative. Results of all CT imaging discussed with staff radiologist Dr. Yannick pride. Chest x-ray AP portable; the cardiac mediastinal silhouette is unremarkable. Pacemaker. Mild congestive heart failure. No evidence of infiltrate or pneumothorax. No other acute cardiopulmonary disease process noted. Interpreted by me. Procedures: Emergency department course: IV placed per EMS. After my initial neurologic Assessment, the patient was sent for CT imaging. Initial neurologic exam is nonfocal. The patient is not a tPA candidate at this time. His presentation is not consistent with CVA. 11:35 a.m., patient re-evaluated. Sleeping but easily arousable. Repeat neurologic Assessment is nonfocal. I discussed the results of his CT imaging with him and the need for admission. Hospitalist paged. 11:45 a.m., spoke with hospitalist. Case discussed in detail. Hospitalist requested a trauma service consult. Patient accepted for admission to the hospitalist service. I spoke with Dr. Isabella Amanda of the Trauma Service regarding this patient. She will consult on any trauma related issues. The patient's remaining emergency department course under my care unremarkable. Patient admitted in stable condition. Differential Diagnosis: The differential diagnosis on this patient includes but is not limited to CVA, TIA, alcohol intoxication, narcotic pain medication overdose, Ambien overdose. This represents a partial list of diagnoses considered. These considerations are based on history, physical exam, past history, reassessment and diagnostic testing. Smoking Status: Never smoked Constitutional: Initial Vital Signs Heart Rate 72 06/13/17 09:37 Respiratory Rate 16 06/13/17 09:37 Blood Pressure 138/72 H 06/13/17 09:37 O2 Sat (%) 94 06/13/17 09:37 O2 Delivery Mode Room Air O2 (L/minute) 2 Allergies/Adverse Reactions: No Known Allergies Allergy (Verified 05/05/17 17:17) Home Medications: Medication Instructions Recorded Acetaminophen [Tylenol ES 500 mg 1,000 mg PO Q8HRS PRN 06/13/17 (*)] Allopurinol [Allopurinol 300 MG 300 mg PO DAILY 06/13/17 (RX)] Carvedilol [Coreg (*)] 12.5 mg PO BIDMEAL 06/13/17 Cholecalciferol Vit D3 [Vitamin D3 1,000 units PO DAILY 06/13/17 (*)] DULoxetine [Cymbalta 60 MG (*)] 60 mg PO DAILY 06/13/17 Ezetimibe [Zetia 10 MG (*)] 10 mg PO DAILY 06/13/17 Levothyroxine [Synthroid 100 mcg 100 mcg PO DAILY06 06/13/17 (*)] Losartan Potassium [Cozaar 50 mg 50 mg PO DAILY 06/13/17 (*)] Psyllium Husk (with Sugar) 1 each PO DAILY PRN 06/13/17 [Metamucil Packet] Sennosides/Docusate Sodium 1 - 2 each PO BID 06/13/17 [Senna-S Tablet] Torsemide [Demadex] 20 mg PO DAILY10 06/13/17 Warfarin Sodium [Coumadin 2MG (*)] 4 mg PO SUMOTUWETHSA@16 06/13/17 Warfarin Sodium [Coumadin 3MG (*)] 6 mg PO FR@16 06/13/17 ZOLPIDEM TARTRATE [Ambien CR 12.5 12.5 mg PO HS PRN 06/13/17 mg] oxyCODONE IR [Oxycodone Ir (*)] 5 - 10 mg PO Q4HRS PRN 06/13/17 Medical Decision Making - Data Points Laboratory Results: Laboratory Results 06/13/17 09:58 06/13/17 09:27 Medications Given: Acetaminophen (Tylenol) 650 mg PO Q4HRS PRN PRN Reason: Pain, Mild/Fever, Can Take PO Stop: 12/10/17 13:00 Last Admin: 06/13/17 13:23 Dose: 650 mg Oxycodone HCl (Oxycodone Ir) 5 - 10 mg PO Q4 PRN PRN Reason: Pain, Severe Able to Take PO Stop: 06/23/17 18:15 Last Admin: 06/14/17 00:08 Dose: 10 mg Departure - Departure Disposition: [facility] Acute Clinical Impression: Altered mental status, Multiple falls
--- NOTE | 2017-06-13 09:48 | CPEKG ---
Heart Rate: 115 RR Interval: 522 QRSD Interval: 226 QT Interval: 392 QTC Interval: 543 P Deming: 0 QRS Deming: 50 T Wave Deming: -12 EKG Severity - ABNORMAL ECG - EKG Impression: VENTRICULAR-PACED COMPLEXES EKG Impression: NONSPECIFIC INTRAVENTRICULAR CONDUCTION DELAY Electronically Signed By: Marilia Quintanilla 13-Jun-2017 14:35:19
[2017-06-13 09:49] LABS: INR 2.77 (0.83-1.16); PROTIME(PATIENT) 29.2 SEC (12.0-15.0)
[2017-06-13 10:03] LABS: PLATELET COUNT 183 10^3/uL (150-400)
--- NOTE | 2017-06-13 12:38 | ASMTCMCOM ---
CM Note CM Note Notes: Pt presented to the ED via EMS as a Stroke Alert after being found down at his home by his [id number]. Pt admitted for AMS and falls at home. Pt gave verbal permission to contact his sister [facility] Isabella Koo (H:[phone], C:[phone]). Spoke with Isabella who reports that she and her went over to pt's house last night and found him on the floor (it appeared pt was trying to get to the bathroom) but he did no present with the facial droop last night so they thought he was just out of it and then helped him to bed on the living room couch. This morning the [id number] went to check on pt and found him on the floor next to his bed, noticed the facial droop & called EMS. Pt lives alone in a two-story private home. Pt recently admitted & discharged 05/20/17 with [facility] ([phone]). Spoke w/JUSTIN and they say pt was receiving services through their [place] office but was discharged from their services on 05/31/17. Pt was also admitted back in April 2017 and had been discharged to [facility]. Per chart review, pt did not have a good experience at [facility]. There were also notes indicating that Isabella would not want patient to go to [facility] or [facility]. Per chart review, it appears pt was also interested in [facility]. Pt recently had posterior decompressive L4-S1 laminectomies w/Dr Caceres on 05/18/17. Isabella states pt has "not been managing his medications well" and may be taking more than prescribed (oxycodone, ambien, etc) and there is also concern about alcohol consumption (pt admits to drinking vodka and previous admission notes say Isabella was concerned about empty vodka bottles around house). Spoke w/Isabella again, updated on pt being admitted and room number. Isabella states she and her are on their way to the hospital. Anticipate pt to have PT/OT/WEATHERIZATION AND HOUSING INSPECTOR evals, poss SNF placement if pt agreeable (pt wasn't agreeable last admission). CM to follow. Date Signed: 06/13/2017 12:37 PM Electronically Signed By:Monica Lilly RN
--- NOTE | 2017-06-13 12:40 | ASMTLACE ---
FAISAL Acuity / Level of Answers: No Care: Did the patient have an inpatient admission? Comorbidities - select Answers: Congestive heart failure all that apply History of falls Opioid dependence / Chronic pain Other Notes: history of prostate cancer, A-fi b, pacemaker # of Emergency department Answers: 3-4 visits in the last 6 months Social determinants Answers: History of substance abuse (ETOH, street drugs, prescription drugs, etc.) Score: 16 Date Signed: 06/13/2017 12:39 PM Electronically Signed By:Monica Lilly RN
[2017-06-13] MEDS ORDERED: ONDANSETRON DISINTEGRATING 4 MG TAB PO PRN (13:01)
[2017-06-13] MEDS ORDERED: ONDANSETRON 4 MG/2 ML VIAL IVP PRN (13:01)
[2017-06-13 13:10] LABS: CREATINE KINASE 634 IU/L (0-224)
[2017-06-13] MEDS: ACETAMINOPHEN 325 MG TAB PO PRN (13:23)
--- NOTE | 2017-06-13 13:51 | GHP ---
[f rep st] HISTORY AND PHYSICAL DATE OF ADMISSION: 06/13/2017 CHIEF COMPLAINT: Fall. HISTORY OF PRESENT ILLNESS: The patient is a 77-year-old man who presented to the ER as a stroke dawn rt from home. On speaking with the patient, he thinks he fell maybe yesterday or the day before; he is unsure. He does have a history of alcohol abuse. He is on oxycodone and Ambien after recent back surgery. He is not a good historian. He is complaining of pain by his left toe. He also describes that he recently had back surgery. PAST MEDICAL HISTORY: Hypothyroidism, prostate cancer, atrial fibrillation. PAST SURGICAL HISTORY: Recent back surgery for L5-S1, pacemaker, colon resection, right knee replace ment, right shoulder surgery. SOCIAL HISTORY: History of alcohol abuse. Lives alone. REVIEW OF SYSTEMS: Difficult to obtain as he does not seem very focused. FOCUSED PHYSICAL EXAMINATION: VITAL SIGNS: 36.4, 87, 152/92, 28, 96% room air. GENERAL: Pleasant, somewhat disheveled, overweight man lying on gurney. HEENT: Normocephalic. No gross hearing defici ts. Mucous membranes dry. Pupils equal and round. LUNGS: Clear to auscultation bilaterally. No i ncreased work of breathing. CARDIAC: Regular rate. ABDOMEN: Bowel sounds present. Soft, nontende r, nondistended. He has a midline abdominal incision. SKIN: He has scattered abrasions over his bi lateral lower extremities and on his toes. His left great toe and 2nd toe are a bit more erythematou s as compared to the right. No obvious signs of ascending infection. PSYCH: Unable to focus well. MUSCULOSKELETAL: Although it took quite a bit of direction, he does have 5/5 strength, upper and lo wer extremities. NEURO: Grossly intact. RESULTS REVIEWED: I personally reviewed the results of his head CT, neck CTA. There are no acute in tracranial process or fractures. LABORATORY DATA: Significant for a CK of 634. His white count is mildly elevated at 10. He is anem ic at 10.7 and 33. His INR is 2.77. IMPRESSION/PLAN: The patient is a 77-year-old man who is a poor historian, who fell possibly sometim e within the past 48 hours. He has a history of recent back surgery. He appears somewhat confused. I do not see any acute traumatic injuries. Please consult the trauma service if a specific concern arises. /[id number]/MODL
--- NOTE | 2017-06-13 14:06 | GHP ---
[f rep st] HISTORY AND PHYSICAL DATE OF ADMISSION: 06/13/2017 HISTORY OF PRESENT ILLNESS: The patient is a pleasant 77-year-old gentleman with a history of remote cerebellar stroke with gait instability, as well as a recent lumbar spine surgery, who presents with fall and possible slurred speech. He initially presented as a stroke alert and that he appeared to be intoxicated with slurred speech. The stroke workup was negative. He has a therapeutic INR so he is not a candidate for lytics. When I speak with the patient, he said that last night he tripped and fell down the stairs. He was t oo weak to get up and laid there all evening and some people came and picked him up this morning. He denies alcohol use or having taken Ambien. I took care of him here about a month and a half ago for a similar presentation of falling down the stairs. At that time, I discontinued his Coumadin. He i s on Coumadin now. It is not clear if that was restarted by Neurosurgery or my decision to discontin ue it was not implemented. The patient states that he feels weak. He has not had fever, chills, cou gh, sputum, nausea, vomiting, diarrhea. He denies Ambien or recent alcohol. He is asking for a Band -Aid and some cream for his feet, as he has some wounds there. REVIEW OF SYSTEMS: A complete 10-point review of systems conducted and negative except as noted in t he HPI. PAST MEDICAL HISTORY: 1. Recent lumbar spine surgery, L4, L5. On 05/18/2017, he had a posterior decompressive laminectomy with bilateral medial facetectomies, L4-L5 and L5-S1. [place] [facility] [place] from then, as I understand it, and also when I took care of him in April, he was [place] [facility] [place]. 2. Vestibular CVA in 2007. 3. Pacemaker. 4. Atrial fibrillation, status post ablation. SOCIAL HISTORY: He does not smoke cigarettes. During his April hospitalization, it became apparent that there were multiple alcohol bottles in the house. Lifelong nonsmoker. FAMILY HISTORY: Notable for cancer. PHYSICAL EXAMINATION: PRESENTING VITALS: Today, temp 36, blood pressure 138/72, pulse 72, breathing 16 times a minute, 94% on room air. GENERAL: No acute distress. Alert, but a bit confused. HEENT : Sclerae anicteric. Oropharynx clear. Mucous membranes moist. NECK: Supple, without lymphadenop athy or JVD. LUNGS: Clear to auscultation bilaterally. HEART: S1, S2 without murmurs. ABDOMEN: Soft, nontender, nondistended. LOWER EXTREMITIES: Show trace edema bilaterally. Calves are nontend er. SKIN: Shows multiple small cuts on his legs and on his feet. VASCULAR: He has 2+ dorsalis ped is pulses bilaterally in his lower extremities. LABS: White count 10.8, hematocrit 33, platelets are 183,000. INR is 2.8. Sodium 137, potassium 3. 7, chloride 100, bicarb 23, BUN 11, creatinine 1.0, glucose 82. CK is 634. Tox screen is notable fo r an alcohol level less than 10. Chest x-ray interpreted by me shows mild CHF. No pneumothorax. EK G shows ventricular paced rhythm that appears regular, left bundle branch block pattern. Head CT and CTA show right greater than left subcortical white matter hypodensities, with age-appropriate volume loss, and then the CTA shows no cervical or intracranial vascular abnormalities, right greater than left carotid bulb plaque without significant stenoses, 50% stenosis in the proximal left subclavian a rtery. CT of the cervical spine shows acute osseous abnormality. I have discussed the case with Dr. Marilia Quintanilla and Sanjuana Drummond, Neurosurgery PA. ASSESSMENT/PLAN: A 77-year-old gentleman, here with falls, encephalopathy. 1. Fall: Patient had yet another mechanical fall. There is no hip tenderness. He has been seen by Trauma Surgery, felt no further workup was indicated. We will have PT and OT see him. Given his re cent neurosurgery, I will have the neurosurgeon drop by and see him, although he appears to have an i ntact neuro exam. These mechanical fall are a contraindication to Coumadin and it should be disconti nued. 2. Encephalopathy: I suspect this is medication related. We will follow as he clears here. Could also be postconcussive. We will follow. 3. History of pacemaker. Given his fall, we will have this interrogated. It is possible there have been pauses. 4. Post-trauma workup: The patient has a modestly elevated CK. We will repeat it again tomorrow at 6:30. I am not that concerned it is going to rise again to a realm that is concerning in reaching r habdomyolysis. 5. History of atrial fibrillation: We will follow him on telemetry. Check an echocardiogram. DISPOSITION: Inpatient status, and this patient will have benefit from serious discussion about the risks and benefits of placement. /[id number]/MODL
--- NOTE | 2017-06-13 15:06 | ECHO ---
[email or web address] [address] [address] Main: [phone] Fax: Transthoracic Echocardiogram Name: TONY SUAZO MR#: [id number] Study Date: 06/13/2017 Study Time: 12:11 PM Date of : 1940 Age: 77 year(s) Height: 182.9 cm (72 in.) Weight: 112.95 kg (249 lb.) BSA: 2.34 m2 Gender: Male Examination: Echo Indication: AMS, Cardiac: syncope, Hx of Pacemaker, Hx of A-fib Image Quality: Contrast: Requested by: Adin Yeh BP: 152 mmHg/92 mmHg Heart Rate: Rhythm: Indication: AMS, Cardiac: syncope, Hx of Pacemaker, Hx of A-fib Procedure Staff Telephoner: Tony Berry RDCS [place] Physician: Danilo Christianson MD Requesting Provider: Conclusions: Normal size left ventricle. Borderline concentric LV hypertrophy. EF is 62 %. The left atrium is severely dilated. The right atrium is moderately dilated. Mild mitral valve leaflet calcification is present. Trivial to mild mitral regurgitation. Aortic valve is not well visualized. There is no aortic valve regurgitation. No aortic valve stenosis is present. The pulmonary artery pressure could not be adequately estimated. Compared to the (09/29/14 study) There is no significant change. Measurements: Chambers Valvular Assessment AV/MV Valvular Assessment TV/PV Normal Normal Normal Name Value Range Name Value Range Name Value Range Ao Qing (MM): 3.7 cm (2.2 cm-3.7 AV Vmax: 1.28 m/s (1 m/s-1.7 TR Vmax: 2.84 mm/s ( - ) cm) m/s) TR PGmax: 32 mmHg ( - ) IVSd (2D): 0.9 cm (0.6 cm-1.1 AV maxP mmHg ( - ) syst. PAP: 37 mmHg ( - ) cm) LVOT Vmax: 0.60 m/s (0.7 m/s-1.1 LVDd (2D): 5.6 cm (4.2 cm-5.9 m/s) cm) MV E Vmax: 1.08 m/s ( - ) LVDs (2D): 3.7 cm (2.1 cm-4 cm) LVPWd (2D): 1.2 cm (0.6 cm-1 cm) LVEF (2D): 62 (>=54 %) Patient: TONY SUAZO Study Date: 06/13/2017 Page 1 of 2 12:11 PM Continued Measurements: Chambers Valvular Assessment AV/MV Valvular Assessment TV/PV Name Value Name Value Name Value LADs Lon.7 cm MV E' Septal: 0.09 m/s CVP (est.): 5 mmHg LA Area: 39.3 cm2 MV E/E' Septal: 12.30 LA Volume: 134 ml MV E/E' Lateral: 12.20 LA Volume Index: 57.3 ml/m2 Findings: Left Ventricle: Normal size left ventricle. Borderline concentric LV hypertrophy. Normal global systolic LV function. EF is 62 %. No regional wall motion abnormality. Diastolic dysfunction is present. . Right Ventricle: Normal size right ventricle. There is a pacemaker lead noted in the right ventricle. Left Atrium: The left atrium is severely dilated. Right Atrium: The right atrium is moderately dilated. Mitral Valve: Mild mitral valve leaflet calcification is present. Trivial to mild mitral regurgitation. Aortic Valve: Aortic valve is not well visualized. There is no aortic valve regurgitation. No aortic valve stenosis is present. Tricuspid Valve: The tricuspid valve appears normal. Trivial tricuspid valve regurgitation. Pulmonic Valve: The pulmonic valve is normal in appearance and function. Aorta: The aorta is normal. Pericardium: No pericardial effusion. (No Signature Object) Patient: OTNY SUAZO Study Date: 06/13/2017 Page 2 of 2 12:11 PM [id number]
--- NOTE | 2017-06-13 17:07 | GCON ---
Corrected report* [f rep st] CONSULTATION DATE OF CONSULTATION: 06/13/2017 REASON FOR CONSULTATION: Fall, status post recent lumbar surgery. HOSPITAL COURSE, HISTORY AND MAJOR MEDICAL FINDINGS: The patient is a 77-year- old gentleman who was brought to [facility] emergency room via ambulance. He was found by his sister on the floor of his apartment around 8: 15. EMS had reported the patient was having slurred speech and a left-sided facial droop. He appeared slightly intoxicated and admitted to recently drinking vodka to the ER staff. He has also been taking oxycodone and Ambien after his most recent back surgery. Per his daughter who is in the room as well as his sister, they do have some concerns about his narcotic use and current drinking use. They did note that over the last 3 days, he has been falling more frequently. With talking to the patient, he does feel like he has been weaker in his legs over the last couple of days. He is able to answer most questions, though he does nod off and gets confused occasionally during the interview. He denies any new leg pain, any new back pain, but states that his legs do feel weaker. He is status post L4-S1 lumbar laminectomy decompression with bilateral foraminotomies by Dr. Caceres on 05/18/2017. This was done for severe spinal stenosis with neurogenic claudication. Prior to surgery, he was severely deconditioned, stating that he had to crawl up the stairs at his home. REVIEW OF SYSTEMS: Review of systems is negative other than what is stated in the HPI. It was difficult to obtain a full review of systems, given the patient 's confusion. PAST MEDICAL HISTORY: Significant for vestibular CVA, history of a pacemaker, history of atrial fibrillation status post an ablation. History of spinal stenosis. PAST SURGICAL HISTORY: Significant for recent L4-S1 lumbar laminectomy decompression with bilateral foraminotomies Dr. Caceres approximately 3-1/2 weeks ago. SOCIAL HISTORY: The patient's daughter and sister are at bedside. He does have a history of alcohol abuse. He does not smoke. FAMILY HISTORY: Significant for a history of cancer within his family. ALLERGIES: No known drug allergies. HOME MEDICATIONS: Include oxycodone, Ambien, allopurinol 300 mg 1 p.o. daily, Coreg 6.25 mg 1 p.o. twice daily, vitamin D3 1000 units 1 p.o. daily, Cymbalta 60 mg 1 p.o. daily, Zetia 10 mg 1 p.o. daily, levothyroxine 100 mcg 1 p.o. daily , losartan 50 mg 1 p.o. daily, methocarbamol 750 mg 1 p.o. daily, Senokot 1-2 tabs p.o. b.i.d., Demadex 20 mg 1 p.o. daily, Coumadin for atrial fibrillation. PHYSICAL EXAM: VITAL SIGNS: BP 152/92, pulse is 87, he is 96% on room air. Temp is 36.4. GENERAL: The patient is in no acute distress. NEUROLOGIC: He is alert and oriented to self as well as place and time, but does get confused somewhat during the conversation. He does follow all commands appropriately. He does nod off occasionally and has to be re-aroused during the conversation. He is 5/5 and equal in his bilateral upper and bilateral lower extremities including deltoids, triceps, biceps, wrist flexors and extensors, interossei, intrinsic box liner, iliopsoas, hamstrings, quadriceps, plantar flexion, dorsiflexion , EHL. Sensation is intact in the bilateral upper and bilateral lower extremities. His incision is well healed with some small minor scabbing in the center of the incision. The patient's face is symmetrical other than a slight left facial droop. CLEMENCIA, EOMI. DIAGNOSTIC REVIEW: The patient underwent a cervical spine CT upon coming into the emergency room, given his fall, which demonstrated diffuse degenerative disease with bilateral foraminal stenosis, but no acute fracture. The patient underwent a head CT which was negative for any intracranial abnormality. There was evidence of some thinning of the outer table of the left parietal bone. Head CTA demonstrated no significant stenosis. ASSESSMENT AND PLAN: The patient is a 77-year-old gentleman who recently underwent an L4 to S1 lumbar laminectomy and decompression on 05/18/2017, with Dr. Caceres for neurogenic claudication and lower extremity weakness. He was brought back to [facility] for falls. At this point in time, there was some concern about the patient's mental status as well. We appreciate the Medical team working up the etiology of this. Additionally, per his family, there has been some increased drinking with narcotic use, and they feel like this may be contributing to his symptoms. We did discuss further narcotic use policy, and that we would encourage all further prescriptions to come from only his primary care provider so there are not multiple providers controlling his narcotic pain medication use. For his leg weakness, we would recommend Physical Therapy/Occupational Therapy, to see how he progresses and we will follow along with the other diagnostic tests that the Medicine team has ordered. We will hold on any further imaging at this time. We will see how he does with therapies. Would recommend every 4 hours neuro checks. *Radha. past surgery information throughout body of report: corrected to L4-S1 lumbar laminectomy and decompression with bilateral foraminotomies by Dr. Caceres on 05/18/2017, 06/20/2014, timur. /[id number]/MODL and [id number]/MODL [facility]
[2017-06-13] MEDS: oxyCODONE IR 5 MG TAB PO PRN ×2 (18:19→19:19)
[2017-06-14] MEDS: oxyCODONE IR 5 MG TAB PO PRN ×4 (00:08→21:03)
[2017-06-14 05:07] LABS: INR 2.56 (0.83-1.16); PROTIME(PATIENT) 27.5 SEC (12.0-15.0)
[2017-06-14 05:40] LABS: CREATINE KINASE 233 IU/L (0-224)
--- NOTE | 2017-06-14 07:30 | NEUSURGPN ---
Assessment/Plan: Assessment: 77 yo male that is admitted to with frequent falls. Pt is s/p L1 -[address] Caceres on 05/18/17 Plan: -s/p falls: pt admitted to with falls. Pt will work with PT/OT today -pt states that his legs feel better and is "stronger" -PT/OT will work with him today -we will check on him again after PT/OT works with him -neuro intact -more alert and awake -call with any questions or concerns -pt understands and agrees Subjective: Awake and alert. NAD. Eating/drinking and voiding. No f/c/n/v/d. No [place]/neck/ chest/abd or gu complaints Objective: AAO x 3, PERRLA/EOMI no droop CN 2-12 grossly intact GCS 15 5/5 BUE/BLE = CDI Neuro Check Frequency: per routine Urinary Catheter in Place: No - Physician Discussed Patient with : [facility] Neurosurgery Physical Exam - Vitals, I&O, Labs I and O 06/13/17 06/14/17 06/15/17 05:59 05:59 05:59 Intake Total 500 Output Total 750 Balance -250 Weight 113 kg Intake: Oral (ml) 500 Output: Urine (ml) 750 Urinal 750 Other: Intake Quantity Yes Sufficient Number of Voids Toilet 1 Urinal 1 Number of Stools Toilet 1 Vital Signs Temp Pulse Resp BP Pulse Ox 37.2 C 60 16 131/80 H 95 06/14/17 04:00 06/14/17 04:00 06/14/17 04:00 06/14/17 04:00 06/14/17 04:00 Laboratory Results 06/14/17 04:40 ICD10 Worksheet Patient Problems: Problems Problem Status Onset Altered mental status Acute Multiple falls Acute Acute renal failure Acute Cardiomyopathy Acute Chronic Disease Mgmt/Transitional Care Acute Elevated troponin Acute GLUTEAL HEMATOMA Acute Scalp laceration Acute Syncope Acute Systolic CHF, acute on chronic Acute
[2017-06-14] MEDS: ACETAMINOPHEN 325 MG TAB PO PRN (08:28)
[2017-06-14] MEDS ORDERED: PSYLLIUM METAMUCIL 1 PKT PO PRN (10:30)
[2017-06-14] MEDS ORDERED: ZOLPIDEM TARTRATE 5 MG TAB PO PRN (10:57)
--- NOTE | 2017-06-14 11:29 | WOCRNPDOC ---
HOM[facility] Advanced Assessment Note - Skin Integrity Problem, Advanced Assess Left First Toe Dressing Type: Open to Air Exudate Amount: None Ayaka Wound Tissue: Erythema, Swollen Ayaka Wound Swelling: Moderate Wound Bed Color: Yellow Wound Bed Constitution: Dried Exudate, Adhered Slough Site Measurement - Head-to-Toe Length X Width X Depth (cm): 0.5x0.5xdried exudate/slough Skin Integrity Problem Comment: Mild ayaka wound erythema. Left Second Toe Dressing Type: Open to Air Exudate Amount: None Integumentary Issue Intervention: Mechanical Debridement (with gauze) Ayaka Wound Tissue: Erythema, Swollen Wound Bed Constitution: Red/Solen - Non Granular Tissue Wound Edges: Attached Site Measurement - Head-to-Toe Length X Width X Depth (cm): 1x0.7x0.2 Skin Integrity Problem Comment: Full thickness slough covered wound mechanically debrided with gauze to healthy tissue. There is dark discoloration in nail bed of this toe and erythema that extends distally from wound. 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 Lillian LEVY will ask Dr. Yeh to visualize. Left Pedal Fifth Toe Dressing Type: Open to Air Site Measurement - Head-to-Toe Length X Width X Depth (cm): 0.1x1x0.1 Skin Integrity Problem Comment: Fissure at base of toe where it joins foot. Partial thickness. Cleaned with NS. No conerns or ayaka wound erythema. Left Anterior Lower Leg Excoriation Dressing Type: Open to Air Exudate Amount: None Integumentary Issue Intervention: Dressing Applied, Hydrogel Applied, Mechanical Debridement Ayaka Wound Tissue: Erythema (ayaka wound only) Wound Bed Color: Brown, Yellow Wound Bed Constitution: Granulation Tissue Site Measurement - Head-to-Toe Length X Width X Depth (cm): 3.7x1.3x0.3 Skin Integrity Problem Comment: Stalled full thickness wound. Removed dried exudate/slough/eschar crust with gauze. Cleaned with ns. Covered with wound gel and allevyn. Multiple areas on left anterior lane with dried scabs were also treated in the same manner, though the other areas were smaller partial thickness wounds. Left Knee Abrasion Dressing Type: Open to Air Exudate Amount: Scant Exudate Characteristic(s): Serosanguinous Integumentary Issue Intervention: Dressing Applied, Hydrogel Applied, Mechanical Debridement Ayaka Wound Tissue: Erythema (ayaka wound) Wound Bed Constitution: Red/Solen - Non Granular Tissue Site Measurement - Head-to-Toe Length X Width X Depth (cm): 3x5x0.1 Skin Integrity Problem Comment: Covered with Allevyn life after cleaning with ns and debriding with gauze. Wound care will follow.
[2017-06-14] MEDS: LOSARTAN POTASSIUM 50 MG TAB PO SCH (11:33)
[2017-06-14] MEDS: EZETIMIBE 10 MG TAB PO SCH (11:34)
[2017-06-14] MEDS: SENNOSIDES/DOCUSATE SODIUM TAB PO SCH ×2 (11:34→21:04)
[2017-06-14] MEDS: DULoxetine 60 MG CAP PO SCH (11:34)
[2017-06-14] MEDS: CARVEDILOL 6.25 MG TAB PO SCH ×2 (11:35→17:41)
--- NOTE | 2017-06-14 13:17 | HOSPPROG ---
Hospitalist Progress Note Assessment/Plan: 77 yo M w recurrent falls/encephalopathy falls: he does not recall seeing me in er yesterday but is alert today this is a high risk situation for him he states he has dc'd ambien, alcohol and narcotics, uncertain if true 1. permanent dc of coumadin 2. EEG to eval for seizures 3. PT/OT 4. pacer eval appears OK; will have CARDIOLOGY REVIEW TOE CELLULITIS: start ancef proph: folow inr elevated ck: not rhabdo dispo: inpt Subjective: tele: no events (interp by me). 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 Objective: Vital Signs Temp Pulse Resp BP Pulse Ox 36.5 C 70 17 127/78 H 95 06/14/17 11:32 06/14/17 11:32 06/14/17 11:32 06/14/17 11:32 06/14/17 11:32 Laboratory Results 06/14/17 04:40 06/13/17 06/14/17 06/15/17 05:59 05:59 05:59 Intake Total 500 Output Total 750 Balance -250 PT 27.5 SEC (12.0-15.0) H 06/14/17 04:40 INR 2.56 (0.83-1.16) H 06/14/17 04:40 - Physical Exam Constitutional: no apparent distress, appears nourished Eyes: PERRL, anicteric sclera Ears, Nose, Mouth, Throat: moist mucous membranes, hearing normal Cardiovascular: regular rate and rhythym, no murmur, rub, or gallop Respiratory: no respiratory distress, no rales or rhonchi Gastrointestinal: normoactive bowel sounds, soft, non-tender abdomen Genitourinary: no bladder fullness, No perez in urethra Skin: warm, normal color Musculoskeletal: other (cellulitis of L second toe) Neurologic: AAOx3 ICD10 Worksheet Patient Problems: Problems Problem Status Onset Altered mental status Acute Multiple falls Acute Acute renal failure Acute Cardiomyopathy Acute Chronic Disease Mgmt/Transitional Care Acute Elevated troponin Acute GLUTEAL HEMATOMA Acute Scalp laceration Acute Syncope Acute Systolic CHF, acute on chronic Acute
--- NOTE | 2017-06-14 14:20 | ASMTCMCOM ---
CM Note CM Note Notes: Spoke with hospitalist and PT re: discharge planning. All care team members agree that patient is unsafe to discharge home. A neurology consult and EEG have been ordered. Patient will be starting IV antibiotics for toe cellulitis. Cardiology will review his pacer. Patient was recently discharged from [facility] which he had following his back surgery. I placed a call to his psychometrician to see if she had any insight into patient's living situation. She is supposed to call me back. Patient's family believes that he needs SNF; he will not agree to having more help in the home. We will work to discharge him to a more appropriate level of care. Date Signed: 06/14/2017 02:19 PM Electronically Signed By:Jayla Perdomo RN
[2017-06-14] MEDS: LEVOTHYROXINE 100 MCG TAB PO SCH (14:25)
[2017-06-14] MEDS: ACETAMINOPHEN 500 MG TAB PO PRN (17:41)
[2017-06-15] MEDS: oxyCODONE IR 5 MG TAB PO PRN ×5 (04:40→22:21)
[2017-06-15] MEDS: LEVOTHYROXINE 100 MCG TAB PO SCH (05:44)
[2017-06-15] MEDS: ACETAMINOPHEN 500 MG TAB PO PRN ×3 (05:51→22:24)
--- NOTE | 2017-06-15 07:22 | NEUSURGPN ---
Assessment/Plan: Assessment: 77 yo male that is admitted to with frequent falls. Pt is s/p L1 -[address] Caceres on 05/18/17 Plan: -s/p falls: pt admitted to IM with falls. Pt will work with PT/OT today -pt states that his legs feel better and is "stronger" -PT/OT -neuro intact -more alert and awake -call with any questions or concerns -Having some low back muscle spasms. Discussed not narcotic pain management techniques. Ice, heat, PT. -pt understands and agrees -Discussed with Dr. Caceres -Patient should follow up in 4weeks with Dr. Caceres's office. Will s/o please notify NS with any change in neuro/motor exam Subjective: low back pain. Denies any leg pain Objective: NAD A&Ox3 MAEx4, 5/5 and equal in BUe and BLE. Incison c/d/i. well healed - Physician Discussed Patient with Dr.: Caceres Neurosurgery Physical Exam - Vitals, I&O, Labs I and O 06/14/17 06/15/17 06/16/17 05:59 05:59 05:59 Intake Total 500 1650 Output Total 750 1600 Balance -250 50 Weight 113 kg Intake: Oral (ml) 500 1650 Output: Urine (ml) 750 1600 Toilet 600 Urinal 750 1000 Other: Intake Quantity Yes Yes Sufficient Number of Voids Toilet 1 Urinal 1 Number of Stools Toilet 1 Vital Signs Temp Pulse Resp BP Pulse Ox 36.6 C 63 16 122/78 H 99 06/15/17 04:00 06/15/17 04:00 06/15/17 04:00 06/15/17 04:00 06/15/17 04:00 Laboratory Results 06/14/17 04:40 ICD10 Worksheet Patient Problems: Problems Problem Status Onset Altered mental status Acute Multiple falls Acute Acute renal failure Acute Cardiomyopathy Acute Chronic Disease Mgmt/Transitional Care Acute Elevated troponin Acute GLUTEAL HEMATOMA Acute Scalp laceration Acute Syncope Acute Systolic CHF, acute on chronic Acute
--- NOTE | 2017-06-15 08:22 | GCON ---
[f rep st] CONSULTATION NEUROLOGIC CONSULTATION REFERRING PHYSICIAN: Adin Yeh MD CHIEF COMPLAINT: Fall with loss of consciousness. HISTORY OF PRESENT ILLNESS: The history is obtained from reviewing the medical records as well as di scussions with the patient directly and a phone call I received from Dr. Yeh yesterday. I know th e patient from outpatient management of his chronic peripheral neuropathy for which he has numbness a nd neuropathic pain. He also recently had lumbar spine surgery in May. The patient had been basic ally stable and making a good recovery from his lumbar spine surgery when he presented to the emergen cy room yesterday. Story is that of family reported he was up and walking and at his baseline around 8 in the morning and then he was found on the floor at 8:15 after having apparently fallen down a st ep. EMS thought he had slurred speech and some left facial droop. He did not seem to have dysarthri a in the emergency department noted. The thought was he might be intoxicated and might have been dri nking some alcohol. He does have a history of alcohol abuse, but otherwise had reported sobriety. T he report from family was he was not managing his medicines well, which included Ambien and oxycodone for his back pain. The sense is there is a little bit of slurred speech at baseline and so they did not feel it was much different. There is also a history, at some point, where he had fallen down so me stairs, but that is also a little uncertain. In the hospital, he had a CT head that showed no evidence of stroke and CT angiogram did not show any significant large vessel stenoses. It was not felt that he was likely experiencing a TIA or stroke. He was then admitted to the hospital for further evaluation. His admitting laboratory studies show ed white count of 10,000, hematocrit 33%, INR 2.56 because he is on Coumadin. Blood chemistry from t he 8th showed a CK of 634, currently 233, otherwise unremarkable electrolytes. His alcohol level was less than 10 when he came in 2 days ago. PAST MEDICAL HISTORY: Lumbar spine surgery, May 18, with decompressive laminectomy. Small stroke in 2007. Pacemaker, atrial fibrillation with prior ablation. SOCIAL HISTORY: No smoking. Some probable excessive alcohol use and currently uncertain how often t hat is actually happening. He has been hospitalized in the past with concerns about that. FAMILY HISTORY: Cancer. CURRENT MEDICATIONS: Tylenol as needed, allopurinol, Coreg, cefazolin, vitamin D, Cymbalta, Zetia, S ynthroid, Cozaar, Zofran as needed, oxycodone as needed. ALLERGIES: No allergies are known. REVIEW OF SYSTEMS: A 10-point review of systems unremarkable except for that noted above. PHYSICAL EXAMINATION: VITAL SIGNS: Blood pressure 122/78, pulse 63, respirations 16, temperature 36 .6. GENERAL: He is well developed, lying in the bed in no acute distress. EYES: Clear. NECK: Greco pple with no bruits or masses. MUSCULOSKELETAL: He complains of low back pain. He has some edema i n his lower extremities and chronic trophic changes. NEUROLOGIC: He is awake, alert, attentive, ful ly oriented. Pupils 3 mm and reactive. Extraocular movements are intact. Normal facial sensation a nd movement. Palate elevates symmetrically. Tongue protrudes midline. Motor exam: Normal muscle b ulk and tone with some mild generalized weakness but no focal weakness. Sensation is diminished dist ally in the lower extremities for all modalities consistent with his neuropathy. Reflexes are hypoac tive in the lower extremities at 1+, absent at the ankles. No Babinski signs. DIAGNOSTIC STUDIES: As outlined above. IMPRESSION: Total unit time of 70 minutes. The patient has experienced a fall with probable loss of consciousness, but no definite explanation other than suspected syncope and unlikely to be transient ischemic attack or stroke and always a possibility of seizure, but at this point, no strong clinical suggestion for seizure yet. He has chronic peripheral neuropathy with neuropathic pain and loss of sensation distally. He is status post lumbar spine surgery a month ago and seems to be stable. Neur osurgery has consulted on his case. So far, nothing more specific has been seen from a neurosurgical standpoint. When he was seen early this morning, he seemed to be doing better and plan is to contin ue to monitor him. In the short-term, I would not make any other changes to his treatment. EEG has been ordered and is pending. If he stabilizes fully back to his baseline, then he can be discharged once EEG is obtained and can follow up with me as an outpatient as well as his other providers. /[id number]/MODL
[2017-06-15] MEDS: SENNOSIDES/DOCUSATE SODIUM TAB PO SCH ×2 (08:24→22:21)
[2017-06-15] MEDS: EZETIMIBE 10 MG TAB PO SCH (08:24)
[2017-06-15] MEDS: ALLOPURINOL 300 MG TAB PO SCH (08:25)
[2017-06-15] MEDS: LOSARTAN POTASSIUM 50 MG TAB PO SCH (08:25)
[2017-06-15] MEDS: DULoxetine 60 MG CAP PO SCH (08:25)
[2017-06-15] MEDS: CARVEDILOL 6.25 MG TAB PO SCH ×2 (08:25→18:08)
[2017-06-15] MEDS: TORSEMIDE 20 MG TAB PO SCH (08:25)
[2017-06-15] MEDS: CHOLECALCIFEROL VIT D3 1,000 UNITS TAB PO SCH (08:25)
--- NOTE | 2017-06-15 10:52 | ASMTCMCOM ---
CM Note CM Note Notes: PT/OT still recommending SNF or home w/29/08 supervision. Met w/pt to discuss. He was adamant about not going to SNF. [facility] Pt reports that he has a lot of family around icluding sister (MDPOA) and 2 neices who he says are nurses and he could pay them to help him out. He said he will be discussing options today w/sister, her , and neice today when they come in. I will touch base with them when they are here. Pt will have EEG today Received call back from Madai wilcox/Adilia Zamora (this was [facility] agency that was recently seeing him at home). Madai gallagher w/janna Mcnair's PT who said that she felt like Janna had decent progress at home and she felt like he was fairly safe at home with the stairs and his foot drop being her main concern; she tried to encourage an AFO but pt refused. CM will follow up w/pt and family and Dr Yeh later today. Date Signed: 06/15/2017 10:51 AM Electronically Signed By:Lala Aden RN
[2017-06-15] MEDS ORDERED: oxyCODONE IR 5 MG TAB PO ONE (14:15)
--- NOTE | 2017-06-15 14:40 | HOSPPROG ---
Hospitalist Progress Note Assessment/Plan: 77 yo M w recurrent falls/encephalopathy falls: this is med effective plus poor balance 2/2 neuropathy dc long acting ambien dc coumadin ? seizures: eeg pending low suspicion insomnia: trial of melatonin TOE CELLULITIS: start ancef proph: follow inr elevated ck: not rhabdo dispo: inpt Subjective: can discussed w dr moore, dr blair Objective: Vital Signs Temp Pulse Resp BP Pulse Ox 36.7 C 72 16 109/66 96 06/15/17 12:00 06/15/17 12:00 06/15/17 12:00 06/15/17 12:00 06/15/17 12:00 Laboratory Results 06/14/17 04:40 06/14/17 06/15/17 06/16/17 05:59 05:59 05:59 Intake Total 500 1650 Output Total 750 1600 Balance -250 50 PT 27.5 SEC (12.0-15.0) H 06/14/17 04:40 INR 2.56 (0.83-1.16) H 06/14/17 04:40 - Physical Exam Constitutional: no apparent distress, appears nourished Eyes: PERRL, anicteric sclera Ears, Nose, Mouth, Throat: moist mucous membranes, hearing normal Cardiovascular: regular rate and rhythym, no murmur, rub, or gallop Respiratory: no respiratory distress, no rales or rhonchi Gastrointestinal: normoactive bowel sounds, soft, non-tender abdomen Genitourinary: No perez in urethra Skin: warm, normal color Musculoskeletal: full muscle strength, no muscle tenderness, other (toe less red ) Neurologic: AAOx3, sensation intact bilaterally Psychiatric: interacting appropriately, not anxious ICD10 Worksheet Patient Problems: Problems Problem Status Onset Altered mental status Acute Multiple falls Acute Acute renal failure Acute Cardiomyopathy Acute Chronic Disease Mgmt/Transitional Care Acute Elevated troponin Acute GLUTEAL HEMATOMA Acute Scalp laceration Acute Syncope Acute Systolic CHF, acute on chronic Acute
--- NOTE | 2017-06-15 17:37 | ASMTCMCOM ---
CM Note CM Note Notes: CM missed pt's family when they were here today. Met w/pt again to revisit dc plan now that he has discussed w/family and Dr Yeh. Pt remains adamant that he does not want to go to SNF, he would like to go home w/[facility] and with support of family, however, It is not clear how often family can be present. Attempted to call sister Emma to discuss, left voice mail. CM will follow. Date Signed: 06/15/2017 05:36 PM Electronically Signed By:Lala Aden RN
[2017-06-16] MEDS: LEVOTHYROXINE 100 MCG TAB PO SCH (05:27)
[2017-06-16] MEDS: oxyCODONE IR 5 MG TAB PO PRN ×2 (05:27→12:29)
[2017-06-16] MEDS: EZETIMIBE 10 MG TAB PO SCH (07:51)
[2017-06-16] MEDS: ACETAMINOPHEN 500 MG TAB PO PRN ×2 (07:51→16:50)
[2017-06-16] MEDS: CHOLECALCIFEROL VIT D3 1,000 UNITS TAB PO SCH (07:53)
[2017-06-16] MEDS: SENNOSIDES/DOCUSATE SODIUM TAB PO SCH (07:54)
[2017-06-16] MEDS: LOSARTAN POTASSIUM 50 MG TAB PO SCH (07:54)
[2017-06-16] MEDS: CARVEDILOL 6.25 MG TAB PO SCH (07:54)
[2017-06-16] MEDS: ALLOPURINOL 300 MG TAB PO SCH (07:54)
[2017-06-16] MEDS: DULoxetine 60 MG CAP PO SCH (07:55)
--- NOTE | 2017-06-16 09:03 | NEUROPROG ---
Assessment: Pt with stable. Total unit time 15 min. He is at neurologic baseline essentially and I don't suspect seizures. Will Sign off and please call for any concerns Subjective: NO new complaints Objective: Vital Signs Temp Pulse Resp BP Pulse Ox 36.8 C 66 19 130/79 H 95 06/16/17 07:52 06/16/17 07:54 06/16/17 07:52 06/16/17 07:54 06/16/17 07:52 Laboratory Results 06/14/17 04:40 06/15/17 06/16/17 06/17/17 05:59 05:59 05:59 Intake Total 1650 700 Output Total 1600 1950 Balance 50 -1250 PT 27.5 SEC (12.0-15.0) H 06/14/17 04:40 INR 2.56 (0.83-1.16) H 06/14/17 04:40 alert and attentive with clear and fluent speech. EEG normal essentially Allergies/Adverse Reactions: No Known Allergies Allergy (Verified 05/05/17 17:17)
--- NOTE | 2017-06-16 10:05 | PDMN ---
Medical Necessity Medical necessity: Change to IP, as of 06/15/17, per MD; los >2 mn for ongoing eval of encephalopathy, recurrent falls, possible seizures & toe cellulitis; admit for further workup/monitoring, IV abx, med management & therapies; hx recent L1-4 laminectomy, CVA, gait instability, pacemaker, AFIB s/p ablation & prostate cancer; per progress note & order 06/15/17
--- NOTE | 2017-06-16 10:42 | ASMTCMCOM ---
CM Note CM Note Notes: Chart reviewed for dc planning purposes. Met with patient to review dc plan of care. He has previously refused SNF. He is amenable to HHC. He lives alone in [place] in a large 5 bedroom home. His sister Leonela [phone] is his MDPOA. I spoke with her and she tells me she will be his transport home from the hospital and can spend a night or two but other than home care he will be on his own. Leonela expresses concern over his ability to manage his home medication regiment and feels strongly he has mismanaged them resulting in incoherent thoughts and falls. Plan: Home with [facility] Date Signed: 06/16/2017 10:41 AM Electronically Signed By:Belén Sims RN
[2017-06-16] MEDS: TORSEMIDE 20 MG TAB PO SCH (10:55)
[2017-06-16 15:16] VITALS: BP 122/78
--- NOTE | 2017-06-16 16:11 | HOSPPROG ---
Hospitalist Progress Note Assessment/Plan: 77 yo M w recurrent falls/encephalopathy falls: this is med effective plus poor balance 2/2 neuropathy dc long acting ambien dc coumadin ? seizures: eeg pending low suspicion insomnia: trial of melatonin TOE CELLULITIS: start ancef proph: follow inr elevated ck: not rhabdo dispo: to home today w home pt and ot refuses snf >30 minutes Subjective: negative eeg Objective: Vital Signs Temp Pulse Resp BP Pulse Ox 36.5 C 82 18 122/78 H 93 06/16/17 15:14 06/16/17 15:14 06/16/17 15:14 06/16/17 15:14 06/16/17 15:14 Laboratory Results 06/14/17 04:40 06/15/17 06/16/17 06/17/17 05:59 05:59 05:59 Intake Total 1650 700 Output Total 1600 1950 1125 Balance 50 -1250 -1125 PT 27.5 SEC (12.0-15.0) H 06/14/17 04:40 INR 2.56 (0.83-1.16) H 06/14/17 04:40 - Physical Exam Constitutional: no apparent distress, appears nourished Eyes: PERRL, anicteric sclera Ears, Nose, Mouth, Throat: moist mucous membranes, hearing normal Cardiovascular: regular rate and rhythym, no murmur, rub, or gallop Respiratory: no respiratory distress, no rales or rhonchi Gastrointestinal: normoactive bowel sounds, soft, non-tender abdomen Genitourinary: no bladder fullness, No perez in urethra Skin: warm, normal color Musculoskeletal: full muscle strength, no muscle tenderness Neurologic: AAOx3 ICD10 Worksheet Patient Problems: Problems Problem Status Onset Altered mental status Acute Multiple falls Acute Acute renal failure Acute Cardiomyopathy Acute Chronic Disease Mgmt/Transitional Care Acute Elevated troponin Acute GLUTEAL HEMATOMA Acute Scalp laceration Acute Syncope Acute Systolic CHF, acute on chronic Acute
--- NOTE | 2017-06-16 16:17 | PDIAF ---
- Diagnosis Diagnosis: falls Code Status: Full Code - Medication Management Discharge Medications: Medications to Continue on Transfer Acetaminophen [Tylenol ES 500 mg (*)] 1,000 mg PO Q8HRS PRN 06/13/17 [Last Taken 06/12/17] Allopurinol [Allopurinol 300 MG (RX)] 300 mg PO DAILY 06/13/17 [Last Taken 06/12] Carvedilol [Coreg (*)] 12.5 mg PO BIDMEAL 06/13/17 [Last Taken 06/12/17] Cholecalciferol Vit D3 [Vitamin D3 (*)] 1,000 units PO DAILY 06/13/17 [Last Taken 06/12/17] DULoxetine [Cymbalta 60 MG (*)] 60 mg PO DAILY 06/13/17 [Last Taken 06/12/17] Ezetimibe [Zetia 10 MG (*)] 10 mg PO DAILY 06/13/17 [Last Taken 06/12/17] Levothyroxine [Synthroid 100 mcg (*)] 100 mcg PO DAILY06 06/13/17 [Last Taken ] Losartan Potassium [Cozaar 50 mg (*)] 50 mg PO DAILY 06/13/17 [Last Taken ] Psyllium Husk (with Sugar) [Metamucil Packet] 1 each PO DAILY PRN 06/13/17 [ Last Taken Unknown] Sennosides/Docusate Sodium [Senna-S Tablet] 1 - 2 each PO BID 06/13/17 [Last Taken 06/13/17] Torsemide [Demadex] 20 mg PO DAILY10 06/13/17 [Last Taken Unknown] Cephalexin [Keflex (*)] 500 mg PO QID #12 cap 06/16/17 [Last Taken Unknown] Discharge Medications: Refer to the Discharge Home Medication list for PRN reason. - Orders Services needed: Home Care, Registered Nurse, Physical Therapy, Occupational Therapy Home Care Face to Face: I certify that this patient was under my care and that I had the required [id number] encounter meeting the encounter requirements on the discharge day. My findings support the fact that the patient is homebound as defined in Home Care Face to Face Continued: CMS Chapter 7 Medicare Benefits Manual 30.1.1 , The condition of the patient is such that there exists a normal inability to leave home and consequently, leaving home would require a considerable and taxing effort. Isolation Type: None - Follow Up Care Current Providers and Referrals: Patient,NotPresent [Unknown] - As per Instructions
--- NOTE | 2017-06-16 16:26 | ASMTCMCOM ---
CM Note CM Note Notes: Pt medically stable for d/c with [facility] PT/OT/RN and family support. Orders sent in All[employer]. Date Signed: 06/16/2017 04:25 PM Electronically Signed By:RICHELLE Meza
--- NOTE | 2017-06-16 17:22 | GDS ---
[f rep st] DISCHARGE SUMMARY DISCHARGE DIAGNOSES: 1. Mechanical fall. 2. 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 3. Atrial fibrillation, status post ablation. 4. Remote history of cerebrovascular accident with some balance issues. 5. Recent lumbar spine surgery. 6. Pacemaker. HOSPITAL COURSE: Please see admission history and physical by Dr. Adin Yeh. Patient presented with a fall down 1 step. He had numerous abrasions and cuts on him consistent with recent fall. He was confused and encephalopathic at the time of admission and did not recall it the following day. It is worth noting at baseline he is an educated intelligent man. Workup for his encephalopathy and falls included interrogation of his pacer, which was unremarkable. He had an EEG showing no seizures . He was seen by Trauma Surgery, felt no further workup was indicated. He had no major injuries. The patient has in the past refused to go to SNF and he continues to do that today. Medication evalu ation revealed that the patient was taking Ambien CR 12.5 mg perhaps 2 per evening at times, as well as oxycodone. I had discontinued his warfarin during a previous admission, but it had been restarted . After substantial discussion with the patient, his sister and his primary care physician, we have elected to permanently discontinue his warfarin given falls and discontinued the Ambien CR and oxycod one. In the past, there had been some issues with alcohol use, although he states he has not had alc ohol use recently and there is no evidence of alcohol bottles in his house, but there had been previo usly. I have noted that longterm facility was recommended, which he is unambiguously declined, laurain g been to [facility] in the past. The patient is going to be discharged to home. He is going to have home PT, RN and OT and home care. He contracts to discontinue his narcotics and Ambien as well as brenden whitman, follow up with his primary care physician and continue to remain abstinent from alcohol. /[id number]/MODL
--- NOTE | 2017-06-16 17:28 | ASDISCHSUM ---
Discharge Information Plan Status:Home with Home Health Medically Cleared to Leave: Discharge Date:06/16/2017 05:19 PM CM D/C Disposition:Home Health Service ADT D/C Disposition:[id number] Projected Discharge Date:06/16/2017 11:00 AM Transportation at D/C:Family Discharge Delay Reason: Follow-Up Date:06/16/2017 11:00 AM Discharge Slot: Final Diagnosis: Placement Information Referral Type:*Home Health Care Services Referral ID:[id number] Provider Name:[facility] [place] Address 1:[address] [place] [address] Address 2: City:[place] Selection Factors: State:[place] Patient Contact Information Contact Name:ERICA Relationship:Sister Address:[address] City:[place] Alternate Phone: State/Zip Code:[place] [address] Email: Financial Information Financial Class:Medicare Primary Plan Desc:MEDICARE OUTPATIENT Primary Plan Number:[id number] Secondary Plan Desc:[facility] Secondary Plan Number:[id number] Assessment Information [facility] CM Progress Note CM Note CM Note Notes: Pt presented to the ED via EMS as a Stroke Alert after being found down at his home by his inqbzzd-pn-pek. Pt admitted for AMS and falls at home. Pt gave verbal permission to contact his sister and [facility], Isabella Hayes (H:[phone], C:[phone]). Spoke with Isabella who reports that she and her went over to pt's house last night and found him on the floor (it appeared pt was trying to get to the bathroom) but he did no present with the facial droop last night so they thought he was just out of it and then helped him to bed on the living room couch. This morning the wiortdt-la-mve went to check on pt and found him on the floor next to his bed, noticed the facial droop & called EMS. Pt lives alone in a two-story private home. Pt recently admitted & discharged 05/20/17 with [facility] ([phone]). Spoke w/TS and they say pt was receiving services through their [place] office but was discharged from their services on 05/31/17. Pt was also admitted back in April 2017 and had been discharged to [facility]. Per chart review, pt did not have a good experience at [facility]. There were also notes indicating that Isabella would not want patient to go to [facility] or [place]. Per chart review, it appears pt was also interested in [facility]. Pt recently had posterior decompressive L4-S1 laminectomies w/Dr Caceres on 05/18/17. Isabella states pt has "not been managing his medications well" and may be taking more than prescribed (oxycodone, ambien, etc) and there is also concern about alcohol consumption (pt admits to drinking vodka and previous admission notes say Isabella was concerned about empty vodka bottles around house). Spoke w/Isabella again, updated on pt being admitted and room number. Isabella states she and her are on their way to the hospital. Anticipate pt to have PT/OT/[facility] evals, poss SNF placement if pt agreeable (pt wasn't agreeable last admission). CM to follow. Date Signed: 06/13/2017 12:37 PM Electronically Signed By:Monica Lilly RN LACE LACE Acuity / Level of Answers: No Care: Did the patient have an inpatient admission? Comorbidities - select Answers: Congestive heart failure all that apply History of falls Opioid dependence / Chronic pain Other Notes: history of prostate cancer, A-fi b, pacemaker # of Emergency department Answers: 3-4 visits in the last 6 months Social determinants Answers: History of substance abuse (ETOH, street drugs, prescription drugs, etc.) Score: 16 Date Signed: 06/13/2017 12:39 PM Electronically Signed By:Monica Lilly RN [facility] Progress Note CM Note CM Note Notes: Spoke with hospitalist and PT re: discharge planning. All care team members agree that patient is unsafe to discharge home. A neurology consult and EEG have been ordered. Patient will be starting IV antibiotics for toe cellulitis. Cardiology will review his pacer. Patient was recently discharged from [facility] which he had following his back surgery. I placed a call to his home aid to see if she had any insight into patient's living situation. She is supposed to call me back. Patient's family believes that he needs SNF; he will not agree to having more help in the home. We will work to discharge him to a more appropriate level of care. Date Signed: 06/14/2017 02:19 PM Electronically Signed By:Jayla Perdomo RN [facility] Progress Note CM Note CM Note Notes: PT/OT still recommending SNF or home w supervision. Met w/pt to discuss. He was adamant about not going to SNF. He did not have good experience at [facility]. Pt reports that he has a lot of family around icluding sister (MDPOA) and 2 neices who he says are nurses and he could pay them to help him out. He said he will be discussing options today w/sister, her , and neice today when they come in. I will touch base with them when they are here. Pt will have EEG today Received call back from Madai w/[facility] Zamora (this was [facility] agency that was recently seeing him at home). Madai gallagher w/priscilla Mcnair's PT who said that she felt like Priscilla had decent progress at home and she felt like he was fairly safe at home with the stairs and his foot drop being her main concern; she tried to encourage an AFO but pt refused. CM will follow up w/pt and family and Dr Yeh later today. Date Signed: 06/15/2017 10:51 AM Electronically Signed By:Lala Aden RN [facility] KAMRYN Progress Note CM Note CM Note Notes: CM missed pt's family when they were here today. Met w/pt again to revisit dc plan now that he has discussed w/family and Dr Yeh. Pt remains adamant that he does not want to go to SNF, he would like to go home w/[facility]ilia Zamora [facility] and with support of family, however, It is not clear how often family can be present. Attempted to call sister Emma to discuss, left voice mail. CM will follow. Date Signed: 06/15/2017 05:36 PM Electronically Signed By:Lala Aden RN [facility] Progress Note CM Note KAMRYN Note Notes: Chart reviewed for dc planning purposes. Met with patient to review dc plan of care. He has previously refused SNF. He is amenable to HHC. He lives alone in [place] in a large 5 bedroom home. His sister Leonela [phone] is his MDPOA. I spoke with her and she tells me she will be his transport home from the hospital and can spend a night or two but other than home care he will be on his own. Leonela expresses concern over his ability to manage his home medication regiment and feels strongly he has mismanaged them resulting in incoherent thoughts and falls. Plan: Home with [facility] Date Signed: 06/16/2017 10:41 AM Electronically Signed By:Belén Sims RN [facility] CM Progress Note CM Note CM Note Notes: Pt medically stable for d/c with [facility] PT/OT/RN and family support. Orders sent in [employer] Date Signed: 06/16/2017 04:25 PM Electronically Signed By:RICHELLE Meza Intervention Information Intervention Type:Locating Emergency Contact Date of Service:06/13/2017 10:25 AM Patient Type:Emergency Room Staff Member:MILDRED Lilly, Monica Hours:0.5 Discipline:Special Needs Babysitter Severity: Comment: Intervention Type:EITAN-Signed Date of Service:06/14/2017 10:12 AM Patient Type:Observation Staff Member:Priscila Salazar Hours: Discipline: Severity: Comment:
--- NOTE | 2017-06-17 12:30 | CPEEG ---
[f rep st] ELECTROENCEPHALOGRAM DATE OF STUDY: HISTORY: The patient is a 77-year-old who has a history of syncope, peripheral neuropathy, a recent fall and concern for possible seizure, although clinical seizure activity has not really been noted. INDICATION: Evaluate for seizure and epileptiform activity. DESCRIPTION OF THE RECORD: This is a technically adequate study obtained following partial sleep dep rivation in the hospital. Background consists of 7-8 Hz posterior predominant alpha rhythm without _ establishment of a regular alpha rhythm, but no areas of focal slowing and epileptiform dis charges were seen. There was some mild generalized slowing and prominent theta slowing wi th areas of electrographic seizure. There was no significant change overall during the recording. IMPRESSION: This is a awake electroencephalogram recording with nonfocal findings. /[id number]/MODL
== END 2017-06-16 17:19 | disposition home health service (06) | DRG 918 ==
LOC: EDUNIT# → OBSVTOIN 12:05 → F3N 13:08
PROVIDERS: ADMIT Internal Medicine; ATTEND Internal Medicine
DX: T42.6X1A Poisoning by other antiepileptic and sedative-hypnotic drugs, accidental (unintentional), initial encounter (principal); T40.2X1A Poisoning by other opioids, accidental (unintentional), initial encounter; F13.921 Sedative, hypnotic or anxiolytic use, unspecified with intoxication delirium; F11.921 Opioid use, unspecified with intoxication delirium; R26.9 Unspecified abnormalities of gait and mobility; L03.039 Cellulitis of unspecified toe; E03.9 Hypothyroidism, unspecified; I48.91 Unspecified atrial fibrillation; Z96.651 Presence of right artificial knee joint; Z85.46 Personal history of malignant neoplasm of prostate; Z91.81 History of falling; Z86.73 Personal history of transient ischemic attack (TIA), and cerebral infarction without residual deficits; Z79.01 Long term (current) use of anticoagulants; Z95.0 Presence of cardiac pacemaker
CPT/HCPCS: 82947-QW; 92507-GN; 92523-GN; 97116-GP; 97162-GP; 97166-GO; 97530-GP; 97535-GO; G0378; G0480; G8978-GP-CJ; G8979-GP-CI; G8987-GO-CK; G8988-GO-CI; G9165-GN-CI; G9166-GN-CI; J0690

== ENCOUNTER 2017-06-17 12:11 | Inpatient (IN) | payer OTHER ==
--- NOTE | 2017-06-17 12:13 | EDPHY ---
HPI/HX/ROS/PE/MDM Narrative: CHIEF COMPLAINT: Nausea and vomiting HPI: The patient is a 77 y/o male arriving via EMS less than 24 hours after discharge home complaining of nausea, vomiting, and anxiety for the last hour. He was admitted on 06/13/17, 4 days ago, for a fall and altered mental status ultimately thought to be related to Ambien and opiate use. The hospitalist recommended discharge to a rehab facility, but the patient adamantly refused this and went home instead yesterday. His sister and a home health nurse have been caring for him at home. He has discontinued his Ambien and opioids following the episode leading to his admission and did not sleep last night. Midday today he took several medications without eating and became nauseated. His sister left to buy food and the home care nurse left for a short time. While home alone he began to feel anxious and he vomited clear emesis. He felt weak and became scared so he called 911 for transport to the ED. He received 4mg PO Zofran en route and is feeling improved here. He reports a few normal bowel movements today. His anticoagulants were discontinued during his admission. REVIEW OF SYSTEMS: Aside from elements discussed in the HPI, a comprehensive 10-point review of systems was reviewed and is negative. PMH: Pacemaker, remote CVA, lumbar spine surgery, atrial fibrillation post ablation, encephalopathy related to mediations, diverticulitis SOCIAL HISTORY: Sister assisting with care. PCP: Dr. Maurice. Prior medical records reviewed including admission 06/13/17 for altered mental status. PHYSICAL EXAM: General:Patient is alert, in no acute distress. ENT:Eyes are normal to inspection. ENT inspection normal. Neck: Normal inspection. Full range of motion. Respiratory:No respiratory distress. Breath sounds normal bilaterally. Cardiovascular: Regular rate and rhythm. Strong peripheral pulses. Normal cap refill. Abdomen:The abdomen is nontender to palpation. There are no peritoneal signs. Back: Normal to inspection. No tenderness to palpation. Skin: Normal color. No rash. Warm and dry. Extremities: Normal appearance. Full range of motion. Neuro: Oriented x3. Normal motor function. Normal sensory function. (Carlos Enrique Meneses) ED Course: This is a 77 y/o male returning less than 24 hours after discharge from the hospital for AMS thought secondary to Ambien/opioid use now complaining of nausea, vomiting, and anxiety. He adamantly refused discharged to a rehab facility yesterday and continues to have strong feelings against this today. His exam is unremarkable. Plan for IV, labs, symptom management. 1L IV NS and 4mg IV Zofran ordered. 1310: Patient sleeping comfortably. Labs relatively normal. 1335: Patient states he does not feel comfortable going home. Case management consulted. 1450: After extensive discussion with case management, patient now feels comfortable being transferred to SNF. Diana is attempting to arrange transfer, if this for some reason cannot happen today, the patient may need observation admit overnight to ensure safety. Patient signed out to Dr. Crockett pending disposition. I see no sign of acute serious medical condition. (Carlos Enrique Meneses) MDM: 4:45 p.m. case management has not been able to arrange transfer to SNF today. Will admit overnight. The I discussed the case with Dr. Danis Polo who will admit to the medical service (Alfredo Crockett) - Data Points Laboratory Results: Laboratory Results 06/17/17 12:42 06/17/17 12:42 06/17/17 06/17/17 06/17/17 12:42 12:42 12:42 WBC 13.55 10^3/uL H 10^3/uL (3.80-9.50) RBC 4.26 10^6/uL L 10^6/uL (4.40-6.38) Hgb 12.9 g/dL L g/dL (13.7-17.5) Hct 39.4 % L % (40.0-51.0) MCV 92.5 fL fL (81.5-99.8) MCH 30.3 pg pg (27.9-34.1) MCHC 32.7 g/dL g/dL (32.4-36.7) RDW 15.7 % H % (11.5-15.2) Plt Count 273 10^3/uL 10^3/uL (150-400) MPV 12.3 fL H fL (8.7-11.7) Neut % (Auto) 95.6 % H % (39.3-74.2) Lymph % (Auto) 2.0 % L % (15.0-45.0) Mcminn % (Auto) 0.6 % L % (4.5-13.0) Eos % (Auto) 0.9 % % (0.6-7.6) Baso % (Auto) 0.4 % % (0.3-1.7) Nucleat RBC Rel Count 0.0 % % (0.0-0.2) Absolute Neuts (auto) 12.95 10^3/uL H 10^3/uL (1.70-6.50) Absolute Lymphs (auto) 0.27 10^3/uL L 10^3/uL (1.00-3.00) Absolute Monos (auto) 0.08 10^3/uL L 10^3/uL (0.30-0.80) Absolute Eos (auto) 0.12 10^3/uL 10^3/uL (0.03-0.40) Absolute Basos (auto) 0.05 10^3/uL 10^3/uL (0.02-0.10) Absolute Nucleated RBC 0.00 10^3/uL 10^3/uL (0-0.01) Immature Gran % 0.5 % % (0.0-1.1) Immature Gran # 0.07 10^3/uL 10^3/uL (0.00-0.10) RBC/WBC/PLT Morphology TNP Platelet Estimate TNP Sodium 139 mEq/L mEq/L (135-145) Potassium 3.8 mEq/L mEq/L (3.5-5.2) Chloride 99 mEq/L mEq/L (97-110) Carbon Dioxide 23 mEq/l mEq/l (22-31) Anion Gap 17 mEq/L H mEq/L (8-16) BUN 13 mg/dL mg/dL (7-23) Creatinine 1.0 mg/dL mg/dL (0.7-1.3) Estimated GFR > 60 Glucose 100 mg/dL mg/dL (70-100) Calcium 9.6 mg/dL mg/dL (8.5-10.4) Troponin I < 0.012 ng/mL ng/mL (0.000-0.034) Lipase 49 IU/L IU/L (23-300) Ethyl Alcohol < 10 mg/dL mg/dL (0-10) Medications Given: Discontinued Medications Acetaminophen (Tylenol) 650 mg PO EDNOW ONE Stop: 06/17/17 14:28 Last Admin: 06/17/17 14:31 Dose: 650 mg Sodium Chloride (Ns) 1,000 mls @ 0 mls/hr IV EDNOW ONE; Wide Open PRN Reason: Protocol Stop: 06/17/17 12:38 Last Admin: 06/17/17 12:42 Dose: 1,000 mls Ondansetron HCl (Zofran) 4 mg IVP EDNOW ONE Stop: 06/17/17 12:38 Last Admin: 06/17/17 12:43 Dose: 4 mg General Time Seen by Provider: 06/17/17 12:11 Initial Vital Signs: Initial Vital Signs Temperature (C) 36.8 C 06/17/17 12:14 Heart Rate 76 06/17/17 12:14 Respiratory Rate 18 06/17/17 12:14 Blood Pressure 138/82 H 06/17/17 12:14 O2 Sat (%) 96 06/17/17 12:14 O2 Delivery Mode Room Air Allergies/Adverse Reactions: No Known Allergies Allergy (Verified 05/05/17 17:17) Home Medications: Medication Instructions Recorded Acetaminophen [Tylenol ES 500 mg 1,000 mg PO Q8HRS PRN 06/13/17 (*)] Allopurinol [Allopurinol 300 MG 300 mg PO DAILY 06/13/17 (RX)] Carvedilol [Coreg (*)] 12.5 mg PO BIDMEAL 06/13/17 Cholecalciferol Vit D3 [Vitamin D3 1,000 units PO DAILY 06/13/17 (*)] DULoxetine [Cymbalta 60 MG (*)] 60 mg PO DAILY 06/13/17 Ezetimibe [Zetia 10 MG (*)] 10 mg PO DAILY 06/13/17 Levothyroxine [Synthroid 100 mcg 100 mcg PO DAILY06 06/13/17 (*)] Losartan Potassium [Cozaar 50 mg 50 mg PO DAILY 06/13/17 (*)] Psyllium Husk (with Sugar) 1 each PO DAILY PRN 06/13/17 [Metamucil Packet] Sennosides/Docusate Sodium 1 - 2 each PO BID 06/13/17 [Senna-S Tablet] Torsemide [Demadex] 20 mg PO DAILY10 06/13/17 Cephalexin [Keflex (*)] 500 mg PO QID #12 cap 06/16/17 Departure - Departure Disposition: [facility] Acute Clinical Impression: Multiple falls, Nausea, Physical deconditioning Condition: Good Report Scribed for: Carlos Enrique Meneses Report Scribed by: Nora Quinteros Date of Report: 06/17/17 Time of Report: 12:24 Physician Review and Approval Statement: Portions of this note were transcribed by an ED scribe. I personally performed the history, physical exam, and medical decision making; and confirm the accuracy of the information in the transcribed note.
[2017-06-17] MEDS ORDERED: NS 1,000 ML IV ONE (12:37)
[2017-06-17] MEDS ORDERED: ONDANSETRON 4 MG/2 ML VIAL IVP ONE (12:37)
[2017-06-17 12:49] LABS: PLATELET COUNT 273 10^3/uL (150-400)
[2017-06-17] MEDS ORDERED: ACETAMINOPHEN 325 MG TAB PO ONE (14:27)
[2017-06-17] MEDS ORDERED: ACETAMINOPHEN 325 MG TAB PO PRN (17:05)
[2017-06-17] MEDS ORDERED: ONDANSETRON DISINTEGRATING 4 MG TAB PO PRN (17:05)
[2017-06-17] MEDS ORDERED: ONDANSETRON 4 MG/2 ML VIAL IVP PRN (17:05)
--- NOTE | 2017-06-17 17:24 | ASMTCMCOM ---
CM Note CM Note Notes: Patient presents to ER after discharging home from IP admission yesterday. See chart for details. Patient decided to go home yesterday with HH services despite recommendation for SNF discharge. I have met with patient to discuss situation and plans moving forward. Patient tells me that he called EMS today because his sister "left the house" and he was having urgency to get to toilet for "toxic BM's" that he believes are related to antibiotics. He tells me that his sister Isabella is staying with him 29/08. I have contacted patient's sister Isabella OR . Isabella confirms that she lives close by to patient and that she is available to help, but is NOT staying with him 29/08. She was with patient today prior to his visit to the ER, had left to go to the store and get patient some crackers, and came back to find the Fire Department/ambulance at the house to take him to the ER. Isabella believes that patient is not able to be home with HH services and would benefit from SNF/rehab as well. I have discussed this with the patient who is wavering on his willingness and committment to go to SNF. He tells me that he had a bad experience at [facility] in [place] and had only considered going to [facility] in [place], "but they have a waiting list". I did attempt to contact admissions at [facility] but was unsuccessful. He is not interested in any other rehab facilities in [place]. I asked patient if I could submit a referral to [facility] in [place]. I discussed family's concerns about his safety and their inabilty to be there 29/08. I shared my concerns as well, stressing that a rehab stay may help him to get stronger sooner, allowing him to be more independent when he does return home with HH services Patient agrees to a referral to [facility]. I have submitted a referral via [email or web address] and confirmed receipt with Doris at [facility] . Doris informs me that it is unlikely that patient will be reviewed/accepted this evening, but that he would likely be admitted tomorrow pending approval. Family is not available to be home with patient this evening and I do not believe he is safe to discharge home alone. Patient is in agreement with this as well. I have discussed with Dr. Crockett and plan is for admiission to observation overnight. Patient did discharge yesterday with HH after a 3+ night admission. Isabella (sister) aware of plan and I have encouraged her to follow up with patient in the morning to encourage him to stick with plan for SNF. She agrees and assures that family will be available for transport to SNF CM to follow Date Signed: 06/17/2017 05:23 PM Electronically Signed By:Diana Pineda RN
[2017-06-17] MEDS ORDERED: PSYLLIUM METAMUCIL 1 PKT PO PRN (17:39)
--- NOTE | 2017-06-17 17:45 | PDGENHP ---
History and Physical - Chief Complaint Acute weakness - History of Present Illness Primary care provider: Dr. Ricci Vasquez Primary manager java: Dr. Froylan Echevarria Primary neurosurgeon: Dr. Caceres HPI: 77-year-old male presents with acute weakness characterized as generalized and resulting in inability to lift himself up out of a seated position on the couch, with associated nausea, vomiting, diarrhea, with the onset of symptoms on the day of this presentation. The patient reports that he was discharged home on the day prior to this presentation with home health care , and he immediately experienced a mechanical fall as a result of mis- maneuvering his walker, but he did not experience any overt trauma. He subsequently did not take any Ambien or oxycodone on the evening he returned home, and he reports that this exacerbated his insomnia on the evening prior to this presentation. After sleeping poorly, the patient got up on the morning of this presentation, did not eat or drink anything, and he attempted to take his morning medications. This seem to result in nausea and immediate vomiting of clear liquid material. While his sister was at the grocery store, the patient noted that he was unable to get up off of the couch, and he called the fire department to assist him. Upon arrival, the fire department helped him get to the bathroom, where he experienced explosive diarrhea, with 2 subsequent episodes thereafter. He reports a toxic smell with the 3rd and final episode of diarrhea. He otherwise denies any fevers chills chest pain shortness of breath or lower extremity pain. History Information - Allergies/Home Medication List Allergies/Adverse Reactions: No Known Allergies Allergy (Verified 05/05/17 17:17) Home Medications: Acetaminophen [Tylenol ES 500 mg (*)] 1,000 mg PO Q8HRS PRN 06/13/17 [Last Taken 06/12/17] Allopurinol [Allopurinol 300 MG (RX)] 300 mg PO DAILY 06/13/17 [Last Taken 06/12] Carvedilol [Coreg (*)] 12.5 mg PO BIDMEAL 06/13/17 [Last Taken 06/12/17] Cholecalciferol Vit D3 [Vitamin D3 (*)] 1,000 units PO DAILY 06/13/17 [Last Taken 06/12/17] DULoxetine [Cymbalta 60 MG (*)] 60 mg PO DAILY 06/13/17 [Last Taken 06/12/17] Ezetimibe [Zetia 10 MG (*)] 10 mg PO DAILY 06/13/17 [Last Taken 06/12/17] Levothyroxine [Synthroid 100 mcg (*)] 100 mcg PO DAILY06 06/13/17 [Last Taken ] Losartan Potassium [Cozaar 50 mg (*)] 50 mg PO DAILY 06/13/17 [Last Taken ] Psyllium Husk (with Sugar) [Metamucil Packet] 1 each PO DAILY PRN 06/13/17 [ Last Taken Unknown] Sennosides/Docusate Sodium [Senna-S Tablet] 1 - 2 each PO BID 06/13/17 [Last Taken 06/13/17] Torsemide [Demadex] 20 mg PO DAILY10 06/13/17 [Last Taken Unknown] I have personally reviewed and updated: family history, medical history, social history, surgical history - Past Medical History atrial fibrillation (Status post ablation), CVA (2008, vestibular) Additional medical history: Neuropathy. Hypertension. Hyperlipidemia. Chronic leukocytosis. Recent presentation for acute encephalopathy secondary to toxic effects of Ambien and oxycodone. Chronic back pain with continuous opiate dependency - Surgical History Reports: pacemaker/AICD Additional surgical history: L4-S1 surgery in May 2017 - Family History Positive for: cancer Additional family history: No recent sick family contacts - Social History Smoking Status: Never smoked Alcohol Use: Occasionally (Reportedly none recently) Drug Use: None Additional social history: Patient has previously been [employer], he was recently discharged home with home health care, his sister is currently assisting in his daily care Review of Systems Review of Systems: ROS: 10pt was reviewed & negative except for what was stated in HPI & below Constitutional: Reports: weakness Gastrointestinal: Reports: vomitting, diarrhea, nausea, other (Abdominal bloating) Neurological: Reports: paresthesia (Bilateral lower extremities) Physical Exam Physical Exam: Temp Pulse Resp BP Pulse Ox 36.6 C 99 18 121/78 H 94 06/17/17 17:00 06/17/17 17:00 06/17/17 17:00 06/17/17 17:00 06/17/17 17:00 Constitutional: no apparent distress, not in pain, chronically ill appearing, obese, No uncomfortable Eyes: PERRL, anicteric sclera, EOMI Ears, Nose, Mouth, Throat: moist mucous membranes, hearing normal, ears appear normal, no oral mucosal ulcers Cardiovascular: no murmur, rub, or gallop (Distant heart sounds), edema (1+ bilateral lower extremities), No irregularly irregular, No tachycardia Respiratory: no respiratory distress, no rales or rhonchi, clear to auscultation Gastrointestinal: soft, non-tender abdomen, distension (Mild), No normoactive bowel sounds (Hyperactive bowel sounds), No guarding Skin: other (Some mild blanchable erythema bilateral lower extremities, currently nontender, ulcerations bilateral anterior shins) Neurologic: AAOx3, No sensation intact bilaterally (Paresthesias distal to the bilateral knees), No weakness (Motor strength 5/5 bilateral lower extremities) Psychiatric: interacting appropriately, not anxious, not encephalopathic, thought process linear Lab Data & Imaging Review 06/17/17 12:42 06/17/17 12:42 WBC 13.55 10^3/uL (3.80-9.50) H 06/17/17 12:42 RBC 4.26 10^6/uL (4.40-6.38) L 06/17/17 12:42 Hgb 12.9 g/dL (13.7-17.5) L 06/17/17 12:42 Hct 39.4 % (40.0-51.0) L 06/17/17 12:42 MCV 92.5 fL (81.5-99.8) 06/17/17 12:42 MCH 30.3 pg (27.9-34.1) 06/17/17 12:42 MCHC 32.7 g/dL (32.4-36.7) 06/17/17 12:42 RDW 15.7 % (11.5-15.2) H 06/17/17 12:42 Plt Count 273 10^3/uL (150-400) 06/17/17 12:42 MPV 12.3 fL (8.7-11.7) H 06/17/17 12:42 Neut % (Auto) 95.6 % (39.3-74.2) H 06/17/17 12:42 Lymph % (Auto) 2.0 % (15.0-45.0) L 06/17/17 12:42 [place] % (Auto) 0.6 % (4.5-13.0) L 06/17/17 12:42 Eos % (Auto) 0.9 % (0.6-7.6) 06/17/17 12:42 Baso % (Auto) 0.4 % (0.3-1.7) 06/17/17 12:42 Nucleat RBC Rel Count 0.0 % (0.0-0.2) 06/17/17 12:42 Absolute Neuts (auto) 12.95 10^3/uL (1.70-6.50) H 06/17/17 12:42 Absolute Lymphs (auto) 0.27 10^3/uL (1.00-3.00) L 06/17/17 12:42 Absolute Monos (auto) 0.08 10^3/uL (0.30-0.80) L 06/17/17 12:42 Absolute Eos (auto) 0.12 10^3/uL (0.03-0.40) 06/17/17 12:42 Absolute Basos (auto) 0.05 10^3/uL (0.02-0.10) 06/17/17 12:42 Absolute Nucleated RBC 0.00 10^3/uL (0-0.01) 06/17/17 12:42 Immature Gran % 0.5 % (0.0-1.1) 06/17/17 12:42 Immature Gran # 0.07 10^3/uL (0.00-0.10) 06/17/17 12:42 RBC/WBC/PLT Morphology TNP 06/17/17 12:42 Platelet Estimate TNP 06/17/17 12:42 Sodium 139 mEq/L (135-145) 06/17/17 12:42 Potassium 3.8 mEq/L (3.5-5.2) 06/17/17 12:42 Chloride 99 mEq/L (97-110) 06/17/17 12:42 Carbon Dioxide 23 mEq/l (22-31) 06/17/17 12:42 Anion Gap 17 mEq/L (8-16) H 06/17/17 12:42 BUN 13 mg/dL (7-23) 06/17/17 12:42 Creatinine 1.0 mg/dL (0.7-1.3) 06/17/17 12:42 Estimated GFR > 60 05 12:42 Glucose 100 mg/dL (70-100) 06/17/17 12:42 Calcium 9.6 mg/dL (8.5-10.4) 06/17/17 12:42 Troponin I < 0.012 ng/mL (0.000-0.034) 06/17/17 12:42 Lipase 49 IU/L (23-300) 06/17/17 12:42 Ethyl Alcohol < 10 mg/dL (0-10) 06/17/17 12:42 Visualized and Interpreted Chest x-ray results: Yes Chest X-Ray results: other (Mild interstitial infiltrates, permanent pacemaker on 06/13/2017 chest x-ray) Assessment & Plan Assessment: 77-year-old male presents with acute worsening of generalized weakness in the setting of acute nausea vomiting and diarrhea Plan: 1. Generalized weakness. Acute, new problem this provider, further workup indicated. Resulting in patient unable to complete his activities of daily living and perform the basic tasks of getting up from the couch to the bathroom , resulting in the patient seeking additional assistance from the fire department -unclear whether this is purely secondary to deconditioning and recent hospitalization verses systemic infection -will check for C diff, rule out alcohol use, rule out rhabdomyolysis with CPK -given no oral intake on the day of presentation, provide IV fluids today, then discontinue and check orthostatics in a.m. -reviewed outside records including 06/16/[address] Adin Yeh, recounting patient's most recent hospitalization for acute encephalopathy and resultant falls in the setting of concomitant Ambien and oxycodone immediate release, it was recommended the patient go to a long term facility upon discharge and the patient declined, choosing to go home with health care and assuming all of the potential risks -patient clearly is unable to safely complete activities of daily living at home -discussed with case management and patient, we are all in agreement that the patient should go to a long term facility and case management will begin obtaining authorization for [facility] with anticipated transfer tomorrow 2. Nausea vomiting and diarrhea. Acute, new problem this provider, further workup indicated. Given patient's recent antibiotic exposure and explosive comma toxic small diarrhea, check C diff PCR -as needed Zofran, alleviated symptoms in the emergency department -may be secondary to opiate withdrawal, as review of the patient's most recent hospitalization demonstrates he received 45 mg of oxycodone immediate release, and has not received oxycodone approximately 24 hr, may be experiencing an element of opiate withdrawal -if he is experiencing opiate withdrawal, treat supportively with antiemetics and will provide at bedtime oxycodone to aid in sleep 3. Chronic pain with continuous opiate dependency. Patient has chronic back pain and for this he has undergone L4-S1 surgery in May of 2017 -the patient's recent hospitalization seem to indicate that his concomitant use of Ambien and opiates may have played a role in his acute encephalopathy and recurrent falls, and is recommended that the patient deescalate his use of opiates for pain management -given that the patient requires a pain management overnight in order to facilitate sleep, will provide him with oxycodone immediate release 5 mg at bedtime as needed -will also substitute trazodone for Ambien, given that the patient was up the vast majority of last night without the Ambien 4. Cellulitis. Present on admission, located in the bilateral lower extremities , recently initiated on Keflex by Dr. Yeh during the patient's most recent hospitalization -continue Keflex 500 mg 4 times daily -wound care consultation appreciated 5. Chronic diastolic congestive heart failure. No evidence of acute exacerbation, recent echocardiogram demonstrating preserved ejection fraction, no significant valvular abnormalities or changes from previous echoes -will reinitiate patient's home diuretic and other medications tomorrow a.m., he is most likely vomited them up today and we will repeat provide him with IV fluids today, discontinuing tomorrow morning 6. Atrial fibrillation. Currently in normal sinus mechanism, continue home medications once reconciled, currently off of Coumadin given recurrent falls 7. Chronic leukocytosis. Reviewed outside records which demonstrate his baseline white blood cell count is between 10,014 1000, most recently 10,800 on 06/13/2017 Diet. Regular Prophylaxis. High risk patient, Lovenox 40 Code. Full per patient, sister is MD CANO Disposition. Anticipated discharge is 06/18, to long term facility [facility], the patient is currently amenable to this plan. I have discussed patient's presentation with Dr. Alfredo Crockett, he and I both agree the patient requires ongoing physical care while we work on transition to long term facility.
[2017-06-17] MEDS: LIDOCAINE 4%/MENTHOL 1% PATCH TD SCH (19:27)
[2017-06-17] MEDS: oxyCODONE IR 5 MG TAB PO PRN (19:27)
[2017-06-17] MEDS: CARVEDILOL 6.25 MG TAB PO SCH (19:28)
[2017-06-17] MEDS: D5W 1/2 NS W/ 20 KCl/L 1,000 ML IV SCH (19:42)
[2017-06-17] MEDS ORDERED: CEPHALEXIN 500 MG CAP PO SCH (21:00)
[2017-06-17] MEDS: traZODone 100 MG TAB PO SCH (21:03)
[2017-06-17] MEDS: PATCH REMOVAL 1 EA PATCH TD SCH (21:03)
[2017-06-17] MEDS: CEPHALEXIN 500 MG CAP PO SCH (21:28)
[2017-06-18] MEDS: LEVOTHYROXINE 100 MCG TAB PO SCH (05:22)
[2017-06-18] MEDS: CEPHALEXIN 500 MG CAP PO SCH ×4 (05:22→20:18)
[2017-06-18] MEDS: ACETAMINOPHEN 500 MG TAB PO PRN (05:22)
[2017-06-18] MEDS: D5W 1/2 NS W/ 20 KCl/L 1,000 ML IV SCH (05:27)
[2017-06-18 05:43] LABS: CREATINE KINASE 66 IU/L (0-224)
[2017-06-18 06:27] LABS: PLATELET COUNT 184 10^3/uL (150-400)
[2017-06-18] MEDS: DULoxetine 60 MG CAP PO SCH (09:37)
[2017-06-18] MEDS: CARVEDILOL 6.25 MG TAB PO SCH ×2 (09:37→17:48)
[2017-06-18] MEDS: CHOLECALCIFEROL VIT D3 1,000 UNITS TAB PO SCH (09:37)
[2017-06-18] MEDS: ALLOPURINOL 300 MG TAB PO SCH (09:38)
[2017-06-18] MEDS: LOSARTAN POTASSIUM 50 MG TAB PO SCH (09:38)
[2017-06-18] MEDS: EZETIMIBE 10 MG TAB PO SCH (09:38)
[2017-06-18] MEDS: ENOXAPARIN 40 MG/0.4 ML SYR SC SCH (09:39)
[2017-06-18] MEDS: LIDOCAINE 4%/MENTHOL 1% PATCH TD SCH (09:39)
[2017-06-18] MEDS: TORSEMIDE 20 MG TAB PO SCH (10:46)
--- NOTE | 2017-06-18 13:30 | WOCRNPDOC ---
WOCRN Advanced Assessment Note - Skin Integrity Problem, Advanced Assess Bilateral Lower Dorsal Leg Dressing Type: Allevyn Life (1 on RLE; 3 on LLE) Dressing Description: Intact Exudate Amount: Scant Exudate Characteristic(s): Serosanguinous Integumentary Issue Intervention: Visualized Under Dressing Rina Wound Tissue: Scarred Rina Wound Swelling: None Wound Bed Color: Red Wound Bed Constitution: Red/[place] - Non Granular Tissue Wound Edges: Epithelizing Site Odor: None Site Measurement - Head-to-Toe Length X Width X Depth (cm): see note Skin Integrity Problem Comment: Multiple superficial abrasions on patient's R & L lower legs. No erythema or swelling periwound. Patient reports these are all the result of multiple traumas r/t him "bumping into things" and hitting his shins repeatedly. Will have nursing manage w/ hydrogel and Allevyn dressings. No need for wound care to follow ongoing. Left Toe Dressing Type: Allevyn Life Dressing Description: Intact Exudate Amount: Scant Exudate Characteristic(s): Serosanguinous Integumentary Issue Intervention: Dressing Changed, Dressing Removed, Hydrogel Applied Rina Wound Tissue: Intact Rina Wound Swelling: None Wound Bed Color: Red Wound Bed Constitution: Red/[place] - Non Granular Tissue Site Measurement - Head-to-Toe Length X Width X Depth (cm): L great toe: 0.5cmx0.5cmx0.1cm. L 2nd toe: 0.6cmx0.5cmx0.1cm Skin Integrity Problem Comment: Two, superfical abrasions noted on dorsal aspects of L great and 2nd toes. No swelling or erythema observed. There is some discolored/ecchymotic tissue under distal 2nd toenail, which patient reports is a result of hitting this digit. Wounds covered w/ small Allevyn dressings. No need for wound care to follow. Please reconsult PRN.
[2017-06-18] MEDS ORDERED: PROTOCOL POTASSIUM 1 DOSE MISC PRN (13:43)
[2017-06-18] MEDS ORDERED: POTASSIUM CL 10 MEQ TAB PO ONE ×2 (14:19→19:26)
--- NOTE | 2017-06-18 15:37 | HOSPPROG ---
Hospitalist Progress Note Assessment/Plan: * Diarrhea -GI PCR negative -possibly due to narcotic withdrawal * Falls/acute weakness -likely to need SNF * Possible cognitive issues - due to meds vs. early dementia -ST for cog eval * Recent lumbar laminectomy * Continuous narcotic dependency * Toxic encephalopathy -concerns regarding his self administration of meds * Afib s/p ablation -coumadin DC due to falls * LE cellulitis -Keflex * Ischemic cardiomyopathy - BiV ICD -EF normalized -coreg, losartan, demadex Subjective: No new complaints Objective: Vital Signs Temp Pulse Resp BP Pulse Ox 36.6 C 75 16 124/71 H 93 06/18/17 07:52 06/18/17 12:02 06/18/17 07:52 06/18/17 12:02 06/18/17 07:52 Microbiology 06/17/17 18:20 Gastrointestinal Tract Panel (PCR) - Final Stool No Organism Detected Laboratory Results 06/18/17 05:00 06/18/17 05:00 06/17/17 06/18/17 06/19/17 05:59 05:59 05:59 Intake Total 2801 800 Output Total 500 2300 Balance 2301 -1500 old chart reviewed, just discharged 06/16, coumadin dcd ECHO 06/23 - normal EF - Physical Exam Constitutional: no apparent distress, appears nourished, not in pain Cardiovascular: regular rate and rhythym, no murmur, rub, or gallop Respiratory: no respiratory distress, no rales or rhonchi, clear to auscultation Gastrointestinal: normoactive bowel sounds, soft, non-tender abdomen, no palpable masses Skin: no rashes or abrasions, no fluctuance, no induration Neurologic: AAOx3, sensation intact bilaterally Psychiatric: interacting appropriately, not anxious, not encephalopathic, thought process linear ICD10 Worksheet Patient Problems: Problems Problem Status Onset Multiple falls Acute Nausea Acute Physical deconditioning Acute Acute renal failure Acute Altered mental status Acute Cardiomyopathy Acute Chronic Disease Mgmt/Transitional Care Acute Elevated troponin Acute GLUTEAL HEMATOMA Acute Scalp laceration Acute Syncope Acute Systolic CHF, acute on chronic Acute
--- NOTE | 2017-06-18 16:21 | PDMN ---
Medical Necessity Medical necessity: C/M review: est. > 2 MN LOS for eval and TX of acute and persistent - diarrhea possibly due to narcotic withdrawal, generalized weakness , possible cognitive issues due to medications versus early dementia, toxic encephalopathy - concerns regarding patient self administration of medications, left lower extremity cellulitis present on admission, requiring Wound Care consult, ongoing oral Keflex, acute inpt PT/OT/ST, comorbid falls prior to this admission, history of recent lumbar laminectomy, continuous narcotic dependency , atrial fibrillation S/P ablation - Coumadin stopped due to falls, ischemic cardiomyopathy, biventricular ICD placement per 06/18/2017 Hospitalist progress note.
--- NOTE | 2017-06-18 16:53 | ASMTCMCOM ---
CM Note CM Note Notes: Pt and pt's family under impression he was here for 3 midnights during last admission 06/13-06/16 however, per UR, pt was obs status 06/13-06/15 and inpt status 06/15-06/16 so only had 1 midnight towards SNF stay eligibility. Spoke with pt and then contacted his niece Danielle (who works in [facility]) [phone] and explained situation to her. Hospitalist to change admission order to inpt today - pt will then qualify for SNF d/c Monday, if he still needs that LOC. Pt also stated he has used [facility] before and liked them so if he needs HC wants them. Soraida is concerned about his safety living alone. Apparently he has lived alone all his life and she is concerned he is not taking his medications appropriately, especially the opioids. Pt has money but has not been receptive to spending it on extra care at home. A referral has been sent to [facility] and [facility]. Pt not keen on discharging to SNF. CM will follow for any d/c needs. Date Signed: 06/18/2017 04:52 PM Electronically Signed By:RICHELLE Perdomo
[2017-06-18] MEDS: MELATONIN 3 MG TAB PO PRN (20:18)
[2017-06-18] MEDS: traZODone 100 MG TAB PO SCH (20:18)
[2017-06-18] MEDS: PATCH REMOVAL 1 EA PATCH TD SCH (20:22)
[2017-06-19 05:06] LABS: PLATELET COUNT 191 10^3/uL (150-400)
[2017-06-19] MEDS: LEVOTHYROXINE 100 MCG TAB PO SCH (06:11)
[2017-06-19] MEDS: CEPHALEXIN 500 MG CAP PO SCH ×4 (06:11→20:46)
[2017-06-19] MEDS ORDERED: POTASSIUM CL 10 MEQ TAB PO ONE ×2 (07:48→20:38)
[2017-06-19] MEDS: CHOLECALCIFEROL VIT D3 1,000 UNITS TAB PO SCH (09:35)
[2017-06-19] MEDS: TORSEMIDE 20 MG TAB PO SCH (09:35)
[2017-06-19] MEDS: EZETIMIBE 10 MG TAB PO SCH (09:35)
[2017-06-19] MEDS: DULoxetine 60 MG CAP PO SCH (09:35)
[2017-06-19] MEDS: ENOXAPARIN 40 MG/0.4 ML SYR SC SCH (09:36)
[2017-06-19] MEDS: ASPIRIN EC 325 MG TAB PO SCH (09:36)
[2017-06-19] MEDS: ALLOPURINOL 300 MG TAB PO SCH (09:36)
[2017-06-19] MEDS: LIDOCAINE 4%/MENTHOL 1% PATCH TD SCH (09:37)
[2017-06-19] MEDS: CARVEDILOL 6.25 MG TAB PO SCH ×2 (11:00→16:56)
[2017-06-19] MEDS: LOSARTAN POTASSIUM 50 MG TAB PO SCH (11:00)
[2017-06-19] MEDS: oxyCODONE IR 5 MG TAB PO PRN ×2 (11:08→18:15)
[2017-06-19] MEDS: ACETAMINOPHEN 500 MG TAB PO PRN ×2 (11:09→20:46)
--- NOTE | 2017-06-19 15:42 | ASMTCMCOM ---
CM Note CM Note Notes: CM spoke w/ Dr. Villatoro regarding d/c POC. Dasia from [facility] stopped by and met w/ pt. Pt is actively refusing SNF at this time. Dr. Villatoro is hopeful that once the afo brace is ordered for the foot drop pt will improve enough to d/c home with [facility]. Dr. Villatoro has deemed pt decisional. CM to follow. Plan: TBD Date Signed: 06/19/2017 03:42 PM Electronically Signed By:DUKE Rivera
--- NOTE | 2017-06-19 17:07 | HOSPPROG ---
Hospitalist Progress Note Assessment/Plan: * Diarrhea -GI PCR negative -possibly due to narcotic withdrawal * Falls/acute weakness -SNF refused -re-eval safety for home after AFO brace placed for foot drop * Recent lumbar laminectomy -foot drop preceded surgery - no improvement after surgery * Continuous narcotic dependency - now weaned mostly off * Toxic encephalopathy -patient understands risks of mixing meds * Afib s/p ablation -coumadin DC due to falls * LE cellulitis -Keflex * Ischemic cardiomyopathy - BiV ICD -EF normalized -coreg, losartan, demadex -reduce losartan dose due to low BP Subjective: Feels stong enough to go home. Objective: Vital Signs Temp Pulse Resp BP Pulse Ox 36.4 C 83 16 103/68 94 06/19/17 16:00 06/19/17 16:56 06/19/17 16:00 06/19/17 16:56 06/19/17 16:00 Laboratory Results 06/19/17 04:51 06/19/17 04:51 06/18/17 06/19/17 06/20/17 05:59 05:59 05:59 Intake Total 2801 2200 Output Total 500 3100 Balance 2301 -900 - Physical Exam Constitutional: no apparent distress, appears nourished, not in pain Cardiovascular: regular rate and rhythym, no murmur, rub, or gallop Respiratory: no respiratory distress, no rales or rhonchi, clear to auscultation Gastrointestinal: normoactive bowel sounds, soft, non-tender abdomen, no palpable masses Skin: no rashes or abrasions, no fluctuance, no induration Neurologic: AAOx3, sensation intact bilaterally Psychiatric: interacting appropriately, not anxious, not encephalopathic, thought process linear ICD10 Worksheet Patient Problems: Problems Problem Status Onset Multiple falls Acute Nausea Acute Physical deconditioning Acute Acute renal failure Acute Altered mental status Acute Cardiomyopathy Acute Chronic Disease Mgmt/Transitional Care Acute Elevated troponin Acute GLUTEAL HEMATOMA Acute Scalp laceration Acute Syncope Acute Systolic CHF, acute on chronic Acute
[2017-06-19] MEDS: traZODone 100 MG TAB PO SCH (20:46)
[2017-06-19] MEDS: MELATONIN 3 MG TAB PO PRN (20:55)
[2017-06-19] MEDS: PATCH REMOVAL 1 EA PATCH TD SCH (20:59)
[2017-06-20] MEDS: CEPHALEXIN 500 MG CAP PO SCH ×3 (06:10→16:57)
[2017-06-20] MEDS: LEVOTHYROXINE 100 MCG TAB PO SCH (06:10)
[2017-06-20] MEDS: LOSARTAN POTASSIUM 50 MG TAB PO SCH (10:20)
[2017-06-20] MEDS: EZETIMIBE 10 MG TAB PO SCH (10:20)
[2017-06-20] MEDS: TORSEMIDE 20 MG TAB PO SCH (10:21)
[2017-06-20] MEDS: CHOLECALCIFEROL VIT D3 1,000 UNITS TAB PO SCH (10:21)
[2017-06-20] MEDS: DULoxetine 60 MG CAP PO SCH (10:21)
[2017-06-20] MEDS: ALLOPURINOL 300 MG TAB PO SCH (10:21)
[2017-06-20] MEDS: LIDOCAINE 4%/MENTHOL 1% PATCH TD SCH (10:26)
[2017-06-20] MEDS: ENOXAPARIN 40 MG/0.4 ML SYR SC SCH (10:27)
[2017-06-20] MEDS: CARVEDILOL 6.25 MG TAB PO SCH ×2 (10:35→19:55)
[2017-06-20] MEDS: ACETAMINOPHEN 500 MG TAB PO PRN ×2 (10:49→19:01)
--- NOTE | 2017-06-20 13:05 | GCON ---
[f rep st] CONSULTATION HOSPITAL COURSE, HISTORY, MAJOR MEDICAL FINDINGS: Mr. Priscilla Gamboa is a 77- year-old gentleman who is well known to [facility] and Dr. Caceres for having undergone an L4-S1 lumbar laminectomy decompression with bilateral foraminotomies on 05/18/2017. Prior to that time the patient was known to have leg weakness as well as a foot drop. He was seen in the hospital recently, on 06/13/2017, with some altered mental status likely related to some medication use. He presented back to [facility] emergency room, on 06/17, with acute generalized weakness. He was having some nausea and he stated that he started dry heaving that morning when he was taking his medications. He thought that this may have been due to a new antibiotic. He did experience explosive diarrhea and states that this smelled toxic. While he was here at [facility] emergency room he was seen by PT and 2 AFO braces ordered. It was noted that his foot exam was slightly weaker than it had been reported before. Upon having a discussion with the patient, he states that overall he feels like his feet are getting stronger than they were prior to his decompression with Dr. Caceres in May. He also states that his leg pain has improved. REVIEW OF SYSTEMS: Negative other than what is stated in the HPI. Please see pertinent negatives and pertinent positives. PAST MEDICAL HISTORY: Atrial fibrillation, neuropathy, hypertension, hyperlipidemia, chronic leukocytosis, recent admission for acute encephalopathy secondary to toxic affects of Ambien and oxycodone, and chronic back pain. PAST SURGICAL HISTORY: Lumbar decompression surgery in May as well as history of a pacemaker. FAMILY HISTORY: Significant for cancer. SOCIAL HISTORY: He has never smoked. He will occasionally drink alcoholic beverages. PHYSICAL EXAM: VITAL SIGNS: BP is 123/76, heart rate 64, satting 100% on nasal cannula, and temperature is 36.3. GENERAL: The patient is in no acute distress, alert, oriented x3, and answers questions appropriately. His affect is appropriate for the given situation. NEUROLOGIC: Cranial nerves 2 through are 12 are grossly intact. EOMI and PERRLA. MUSCULOSKELETAL: The patient is 5 /5 and equal in his bilateral upper and lower extremities, including his iliopsoas hamstrings and quadriceps, and plantar flexion. His dorsiflexion is 5 -/5 bilaterally. His EHL on the right is 3/5 and EHL on the left is 3-/5. Sensation is intact in bilateral upper and lower extremities. His low back incision is clean, dry, and intact. ASSESSMENT AND PLAN: Priscilla is a 77-year-old gentleman who has undergone a prior L4-S1 lumbar laminectomy, decompression with bilateral foraminotomies by Dr. Caceres on 05/18/2017. He is weaker on exam today, to me, than on his prior admission. However, the patient states that his strength is stronger. Given the patient's documented decrease in strength, it may be useful to undergo a lumbar MRI to ensure no further compression contributing to this weakness. The nursing staff will check to see if the patient can undergo an MRI given his leads. If not then he would need to undergo a CT myelogram of his lumbar spine. If the patient continues to improve, we will need to weigh the benefit of CT myelogram imaging versus the risks. This was discussed in detail with Dr. Kelsey Franklin, who also saw the patient today, as well as Dr. Caceres, who is his primary Neurosurgeon at [facility]. /[id number]/MODL MTDD
[2017-06-20] MEDS: ASPIRIN EC 325 MG TAB PO SCH (13:22)
--- NOTE | 2017-06-20 17:15 | ASMTCMCOM ---
CM Note CM Note Notes: CM met w/ pt for dispo planning. Pt reports that he had a long talk w/ his brother and his brother convinced him to go to [facility]. Pt is agreeable to going to [facility]. Anticipate d/c for tomorrow. CM spoke w/ Dasia at [facility] and she has a bed available for pt. Updates sent to [facility]. CM to follow. Plan: [facility] Date Signed: 06/20/2017 03:54 PM Electronically Signed By:DUKE Rivera
[2017-06-20] MEDS: oxyCODONE IR 5 MG TAB PO PRN (19:01)
--- NOTE | 2017-06-20 20:39 | HOSPPROG ---
Hospitalist Progress Note Assessment/Plan: * Weakness with worsening foot drop - s/p lumbar surgery 1 month ago -unable to do MRI due to PCM -consider CT myelogram - neurosurg to d/w patient in am -bilateral AFO - reassess with PT for home safety with AFO in place * Continuous narcotic dependency - now weaned mostly off * Toxic encephalopathy -patient understands risks of mixing meds * Afib s/p ablation -coumadin DC due to falls -if improved with rehab, consider restart anti-coag -neurosurg recommends no NSAIDS for bone healing - DC ASA * LE cellulitis -Keflex * Ischemic cardiomyopathy - BiV ICD -EF normalized -coreg, losartan, demadex -reduce losartan and coreg dose due to low BP -maybe falling due to low BP? Subjective: NO change, now agreeable to rehab dispo Objective: Vital Signs Temp Pulse Resp BP Pulse Ox 36.9 C 80 18 102/69 91 L 06/20/17 14:25 06/20/17 14:25 06/20/17 14:25 06/20/17 14:25 06/20/17 14:25 Laboratory Results 06/19/17 04:51 06/20/17 17:35 06/19/17 06/20/17 06/21/17 05:59 05:59 05:59 Intake Total 2200 950 600 Output Total 3100 500 400 Balance -900 450 200 d/w Maryuri Avila - they will discuss risk/benefit of CT myelogram with patient in am - Physical Exam Constitutional: no apparent distress, appears nourished, not in pain Cardiovascular: regular rate and rhythym, no murmur, rub, or gallop Respiratory: no respiratory distress, no rales or rhonchi, clear to auscultation Gastrointestinal: normoactive bowel sounds, soft, non-tender abdomen, no palpable masses Skin: no rashes or abrasions, no fluctuance, no induration Neurologic: AAOx3, sensation intact bilaterally Psychiatric: interacting appropriately, not anxious, not encephalopathic, thought process linear ICD10 Worksheet Patient Problems: Problems Problem Status Onset Multiple falls Acute Nausea Acute Physical deconditioning Acute Acute renal failure Acute Altered mental status Acute Cardiomyopathy Acute Chronic Disease Mgmt/Transitional Care Acute Elevated troponin Acute GLUTEAL HEMATOMA Acute Scalp laceration Acute Syncope Acute Systolic CHF, acute on chronic Acute
[2017-06-20] MEDS: traZODone 100 MG TAB PO SCH (21:10)
[2017-06-20] MEDS: PATCH REMOVAL 1 EA PATCH TD SCH (21:10)
[2017-06-21] MEDS: oxyCODONE IR 5 MG TAB PO PRN ×2 (01:06→20:05)
[2017-06-21] MEDS: LEVOTHYROXINE 100 MCG TAB PO SCH (05:10)
[2017-06-21] MEDS: EZETIMIBE 10 MG TAB PO SCH (08:01)
[2017-06-21] MEDS: CHOLECALCIFEROL VIT D3 1,000 UNITS TAB PO SCH (08:02)
[2017-06-21] MEDS: DULoxetine 60 MG CAP PO SCH (08:03)
[2017-06-21] MEDS: LIDOCAINE 4%/MENTHOL 1% PATCH TD SCH (08:04)
[2017-06-21] MEDS: ENOXAPARIN 40 MG/0.4 ML SYR SC SCH (08:04)
[2017-06-21] MEDS: ALLOPURINOL 300 MG TAB PO SCH (08:10)
--- NOTE | 2017-06-21 08:22 | SOAPPROG ---
JESSICA Progress Note Assessment/Plan: Assessment: 77 yo male with bilateral foot drop Right >Left. Previous L4-[address] Caceres Plan: CPM with PT/OT will determine if he can get MRI with pacemaker If unable, will consider CT myelogram. 06/21/17 08:19 Subjective: lying in bed, no new complaints. Has bilateral foot drop Objective: Vital Signs Temp Pulse Resp BP Pulse Ox 36.9 C 66 16 96/52 L 96 06/20/17 22:41 06/20/17 22:41 06/20/17 22:41 06/20/17 22:41 06/20/17 22:41 Laboratory Results 06/19/17 04:51 06/20/17 17:35 06/20/17 06/21/17 06/22/17 05:59 05:59 05:59 Intake Total 950 600 Output Total 500 400 Balance 450 200 Neuro: bilateral DF/EHL 4/5 5/5 otherwise bilateral LE ICD10 Worksheet Patient Problems: Problems Problem Status Onset Multiple falls Acute Nausea Acute Physical deconditioning Acute Acute renal failure Acute Altered mental status Acute Cardiomyopathy Acute Chronic Disease Mgmt/Transitional Care Acute Elevated troponin Acute GLUTEAL HEMATOMA Acute Scalp laceration Acute Syncope Acute Systolic CHF, acute on chronic Acute
[2017-06-21] MEDS: LOSARTAN POTASSIUM 50 MG TAB PO SCH (09:18)
[2017-06-21] MEDS: CARVEDILOL 6.25 MG TAB PO SCH ×2 (09:19→17:16)
[2017-06-21] MEDS: TORSEMIDE 20 MG TAB PO SCH (09:20)
[2017-06-21] MEDS: ACETAMINOPHEN 500 MG TAB PO PRN (14:06)
[2017-06-21] MEDS ORDERED: predniSONE 20 MG TAB PO ONE (16:45)
--- NOTE | 2017-06-21 16:46 | HOSPPROG ---
Hospitalist Progress Note Assessment/Plan: * Weakness with worsening foot drop - s/p lumbar surgery 1 month ago -unable to do MRI due to PCM -spoke with NS, no CT myelogram, OK to dc and FU with Dr Caceres -bilateral AFO - reassess with PT for home safety with AFO in place * Continuous narcotic dependency - now weaned mostly off * Toxic encephalopathy -patient understands risks of mixing meds * Afib s/p ablation -coumadin DC due to falls -if improved with rehab, consider restart anti-coag as outpt -neurosurg recommends no NSAIDS for bone healing - DC ASA * LE cellulitis -Keflex * Ischemic cardiomyopathy - BiV ICD -EF normalized -coreg, losartan, demadex -reduce losartan and coreg dose due to low BP -maybe falling due to low BP? *anemia -stable, recheck as outpt DISPO- to [facility] in AM- informed CM PCP Dr Vasquez Subjective: Having pain, thinks PMR flare as no longer on daily pred (5 mg). OTW feeling better overall. No CP/SOB/abd pain. Ambulating with therapists. Planning dc to rehab. Objective: Vital Signs Temp Pulse Resp BP Pulse Ox 98.4 F 73 18 119/75 97 06/21/17 15:04 06/21/17 15:04 06/21/17 15:04 06/21/17 15:04 06/21/17 15:04 Laboratory Results 06/19/17 04:51 06/20/17 17:35 06/20/17 06/21/17 06/22/17 11:59 11:59 11:59 Intake Total 950 600 Output Total 500 400 Balance 450 200 - Physical Exam Constitutional: no apparent distress, appears nourished Eyes: anicteric sclera Ears, Nose, Mouth, Throat: moist mucous membranes Cardiovascular: regular rate and rhythym, no murmur, rub, or gallop Respiratory: no respiratory distress, no rales or rhonchi, clear to auscultation Gastrointestinal: normoactive bowel sounds, soft, non-tender abdomen Skin: warm Psychiatric: interacting appropriately, not anxious, not encephalopathic ICD10 Worksheet Patient Problems: Problems Problem Status Onset Multiple falls Acute Nausea Acute Physical deconditioning Acute Acute renal failure Acute Altered mental status Acute Cardiomyopathy Acute Chronic Disease Mgmt/Transitional Care Acute Elevated troponin Acute GLUTEAL HEMATOMA Acute Scalp laceration Acute Syncope Acute Systolic CHF, acute on chronic Acute
[2017-06-21] MEDS: PATCH REMOVAL 1 EA PATCH TD SCH (19:45)
[2017-06-21] MEDS: traZODone 100 MG TAB PO SCH (20:05)
[2017-06-21] MEDS: MELATONIN 3 MG TAB PO PRN (20:05)
[2017-06-22] MEDS: LEVOTHYROXINE 100 MCG TAB PO SCH (05:16)
--- NOTE | 2017-06-22 07:22 | SOAPPROG ---
SOAP Progress Note Assessment/Plan: Assessment: 77 yo M sp L4-S1 laminectomy with persistent foot drop Plan: neuro: stable and making progress discussed with patient that foot drop may take months to improve PT/OT on steroids for PMR likely discharge to [facility] today, follow up with DR Caceres in 1-2 weeks. Patient already has appointment on 06/30/17 please call with neuro changes discussed with DR Caceres 06/22/17 07:19 Subjective: minimal back pain, continued neuropathy in feet. Objective: Vital Signs Temp Pulse Resp BP Pulse Ox 36.4 C 63 18 132/72 H 95 06/22/17 00:00 06/22/17 00:00 06/21/17 15:04 06/22/17 00:00 06/22/17 00:00 Laboratory Results 06/19/17 04:51 06/20/17 17:35 06/21/17 06/22/17 06/23/17 05:59 05:59 05:59 Intake Total 600 550 Output Total 400 1950 Balance 200 -1400 AAOx4, +FC PERRL, EOMI, no facial droop 5/5 except right DF 0/5, left 3/5 + light touch C/D/I ICD10 Worksheet Patient Problems: Problems Problem Status Onset Multiple falls Acute Nausea Acute Physical deconditioning Acute Acute renal failure Acute Altered mental status Acute Cardiomyopathy Acute Chronic Disease Mgmt/Transitional Care Acute Elevated troponin Acute GLUTEAL HEMATOMA Acute Scalp laceration Acute Syncope Acute Systolic CHF, acute on chronic Acute
[2017-06-22 08:10] LABS: PLATELET COUNT 240 10^3/uL (150-400)
[2017-06-22] MEDS: LIDOCAINE 4%/MENTHOL 1% PATCH TD SCH (08:29)
[2017-06-22] MEDS: LOSARTAN POTASSIUM 50 MG TAB PO SCH (08:30)
[2017-06-22] MEDS: EZETIMIBE 10 MG TAB PO SCH (08:30)
[2017-06-22] MEDS: CARVEDILOL 6.25 MG TAB PO SCH (08:32)
[2017-06-22] MEDS: ALLOPURINOL 300 MG TAB PO SCH (08:32)
[2017-06-22] MEDS: CHOLECALCIFEROL VIT D3 1,000 UNITS TAB PO SCH (08:33)
[2017-06-22] MEDS: DULoxetine 60 MG CAP PO SCH (08:33)
[2017-06-22] MEDS ORDERED: predniSONE 10 MG TAB PO SCH (09:00)
[2017-06-22 11:29] VITALS: BP 123/81
[2017-06-22] MEDS ORDERED: LACTULOSE 20 GM/30 ML UDCUP PO PRN (11:39)
[2017-06-22] MEDS ORDERED: BISACODYL 10 MG SUPP PR PRN (11:39)
[2017-06-22] MEDS ORDERED: POLYETHYLENE GLYCOL 3350 17 GM PKT PO PRN (11:39)
[2017-06-22] MEDS ORDERED: MAGNESIUM HYDROXIDE 30 ML UDCUP PO SCH (11:45)
--- NOTE | 2017-06-22 11:47 | PDIAF ---
- Diagnosis Code Status: Full Code - Medication Management Discharge Medications: Medications to Continue on Transfer Acetaminophen [Tylenol ES 500 mg (*)] 1,000 mg PO Q8HRS PRN 06/13/17 [Last Taken 06/12/17] Allopurinol [Allopurinol 300 MG (RX)] 300 mg PO DAILY 06/13/17 [Last Taken 06/12] Carvedilol [Coreg (*)] 12.5 mg PO BIDMEAL 06/13/17 [Last Taken 06/12/17] Cholecalciferol Vit D3 [Vitamin D3 (*)] 1,000 units PO DAILY 06/13/17 [Last Taken 06/12/17] DULoxetine [Cymbalta 60 MG (*)] 60 mg PO DAILY 06/13/17 [Last Taken 06/12/17] Ezetimibe [Zetia 10 MG (*)] 10 mg PO DAILY 06/13/17 [Last Taken 06/12/17] Levothyroxine [Synthroid 100 mcg (*)] 100 mcg PO DAILY06 06/13/17 [Last Taken ] Losartan Potassium [Cozaar 50 mg (*)] 50 mg PO DAILY 06/13/17 [Last Taken ] Psyllium Husk (with Sugar) [Metamucil Packet] 1 each PO DAILY PRN 06/13/17 [ Last Taken Unknown] Torsemide [Demadex] 20 mg PO DAILY10 06/13/17 [Last Taken Unknown] Lidocaine 4%/Menthol 1% [Icy Hot Lidocaine/Menthol 4%/1% Patch (*)] 1 patch TD DAILY patch 06/22/17 [Last Taken Unknown] Melatonin [Melatonin 3 MG (*)] 3 mg PO HS PRN tab 06/22/17 [Last Taken Unknown] Patch Removal 1 ea TD DAILY21 patch 06/22/17 [Last Taken Unknown] Polyethylene Glycol 3350 [Miralax 17 gm (*)] 17 gm PO DAILY PRN pkt 06/22/17 [ Last Taken Unknown] Sennosides/Docusate Sodium [Senokot-S] 2 tab PO BID tab 06/22/17 [Last Taken Unknown] oxyCODONE IR [Oxycodone Ir (*)] 5 mg PO HS PRN tab 06/22/17 [Last Taken Unknown ] predniSONE 10 mg PO DAILY tab 06/22/17 [Last Taken Unknown] 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 PICC Care - Routine: N/A - Orders Home Care Face to Face: done, 06/22/2017 Concepción Finley MD Isolation Type: None Diet Recommendation: no restrictions on diet Diet Texture: Regular Texture Diet Weigh Patient: daily Mast: No Additional Instructions: per PT recommendations, neurosurg recommendations - Follow Up Care Current Providers and Referrals: Patient,NotPresent [Unknown] - As per Instructions Frantz Vasquez MD [Primary Care Provider] - follow up in 2 weeks Sheldon Caceres MD [Medical Doctor] - 06/30/17 (already scheduled with his office , need to verify time/date)
--- NOTE | 2017-06-22 12:46 | GDS ---
[f rep st] DISCHARGE SUMMARY SERVICE: [facility] Hospitalist. CONSULTATIONS: Neurosurgery and Wound Care. PROCEDURES: None. H AND P: Please see previously dictated note by Dr. Polo. ADMISSION DIAGNOSES: 1. Generalized weakness (status post recent hospitalization for acute encephalopathy). 2. Nausea, vomiting, diarrhea. 3. Chronic pain with opiate dependency. 4. Cellulitis. 5. Chronic diastolic congestive heart failure. 6. Atrial fibrillation. 7. Leukocytosis. 8. Anemia. DISCHARGE DIAGNOSES: 1. Generalized weakness, improved 2. Nausea, vomiting, diarrhea, resolved 3. Chronic pain with opiate dependency, resolved 4. Cellulitis, resolved 5. Chronic diastolic congestive heart failure, no acute issues 6. Atrial fibrillation, no acute issues 7. Leukocytosis, resolved 8. Anemia. 9. PMR- low dose steroid dependent HOSPITAL COURSE: The patient came into the emergency department because of some worsening weakness, especially difficulty getting up out of bed, walking, and some new nausea, vomiting, and diarrhea. He has had several hospitalizations recently after having an L4 to S1 surgery in May of 2017, and then a recent admission for encephalopathy felt likely related to medication effects. On the morning prior to coming to the ER, he also had an episode of explosive diarrhea. He was admitted to the [facility] floor , and Neurosurgery was asked to participate in his care. He was treated with IV fluids, and PT/OT evaluated him. Medications were reviewed extensively as it was felt possible that he might be having some opioid withdrawal from his previous use. Initially, Neurosurgery requested to get an MRI, but this was unable to be done because of his pacemaker. Gradually, over the course of stay , he was able to ambulate better, and his weakness gradually improved. However, PT/OT recommended continued therapy so arrangements for transfer to SNF made by CM. He has had no further episodes of diarrhea since the . He did have some cellulitis that was being treated as an outpatient with Keflex, but no ongoing evidence of acute infection was noted throughout his stay, and the Keflex was discontinued. His white blood cell count has returned to normal. He had a GI panel that was negative. On the day of discharge, he is feeling very well and eager to go to rehab to continue with therapy. No acute issues during his stay from his multiple cardiac problems. He does have a history of PMR, for which he was taking chronic low-dose steroid, 5 mg prednisone daily. This had been stopped at some point in the past, and he reported increasing pain from that on the day prior to his discharge. I gave him a 20 mg dose of prednisone on the day prior to discharge, and he "slept so well" and felt much better on the day of discharge. I will continue with 10 mg daily and put a note for the rehab facility or his primary care provider to try to decrease down to his stable dose of 5 mg as able. He was noted to be anemic throughout his stay. This is chronic and stable for him, and this should be followed up with his primary care provider. At discharge, his hemoglobin was 11.3, with a hematocrit of 35.3. MEDICATIONS: See interagency form, but in brief, he is to continue with all of his chronic medications, which include vitamin D, Tylenol as needed, Synthroid, Demadex, Cymbalta, allopurinol, Zetia, carvedilol, losartan, and Metamucil as needed. I also added new prescription of prednisone 10 mg daily, senna, MiraLAX , and lidocaine patch with menthol. He can take melatonin and oxycodone as needed. DISCHARGE INSTRUCTIONS: He is being discharged to [facility] facility for ongoing PT, OT, and strengthening. Interagency form was completed. Please see for details. I have discussed care with Neurosurgery, and they agree with discharge, and he should follow up with Dr. Caceres on June 30, 2017 at their [place] office. Please call their office to verify the time and date. I have also recommended that he see his primary care provider, Dr. Vasquez, within a week or 2 oafter discharge from [facility]. If at any time he has worsening weakness, return of diarrhea, worsening pain, or other concerns, he should return immediately to the emergency department for evaluation. Otherwise, should follow up as above. Copy requested to: Dr. Pedro Caceres /[id number]/MODL MTDD
[2017-06-22] MEDS: TORSEMIDE 20 MG TAB PO SCH (12:54)
--- NOTE | 2017-06-22 13:27 | ASMTLACE ---
FAISAL Length of stay for Answers: 4-6 days current admission Acuity / Level of Answers: Yes Care: Did the patient have an inpatient admission? Comorbidities - select Answers: History of falls all that apply Opioid dependence / Chronic pain # of Emergency department Answers: 1-2 visits in the last 6 months Score: 15 Date Signed: 06/22/2017 01:27 PM Electronically Signed By:Abigail Miller RN
[2017-06-22] MEDS: ACETAMINOPHEN 500 MG TAB PO PRN (15:51)
[2017-06-22] MEDS ORDERED: SENNOSIDES/DOCUSATE SODIUM TAB PO SCH (21:00)
--- NOTE | 2017-06-23 14:19 | ASDISCHSUM ---
Discharge Information Plan Status:SNF Medically Cleared to Leave: Discharge Date:06/22/2017 04:10 PM D/C Disposition:Senior Living Facility ADT D/C Disposition:Other Rehab, Not [place] Projected Discharge Date:06/22/2017 04:00 PM Transportation at D/C:Wheelchair Van Discharge Delay Reason: Follow-Up Date:06/22/2017 04:00 PM Discharge Slot: Final Diagnosis: Placement Information Referral Type:*Fdc/SNF Referral ID:[id number] Provider Name:[facility] Address 1:[address] Address 2: City:[place] Selection Factors: State:[place] Referral Type:*Home Health Care Services Referral ID:[id number] Provider Name: Address 1: Phone Number: Address 2: Fax Number: City: Selection Factors: State: Patient Contact Information Contact Name:ERICA Relationship:Sister Address:[address] City:[place] Alternate Phone: State/Zip Code:[place] [address] Email: Financial Information Financial Class:Medicare Primary Plan Desc:MEDICARE INPATIENT Primary Plan Number:[id number] Secondary Plan Desc:[facility] Secondary Plan Number:[id number] Assessment Information [facility] CM Progress Note CM Note CM Note Notes: Patient presents to ER after discharging home from IP admission yesterday. See chart for details. Patient decided to go home yesterday with services despite recommendation for SNF discharge. I have met with patient to discuss situation and plans moving forward. Patient tells me that he called EMS today because his sister "left the house" and he was having urgency to get to toilet for "toxic BM's" that he believes are related to antibiotics. He tells me that his sister Isabella is staying with him 29/08. I have contacted patient's sister Isabella OR . Isabella confirms that she lives close by to patient and that she is available to help, but is NOT staying with him 29/08. She was with patient today prior to his visit to the ER, had left to go to the store and get patient some crackers, and came back to find the Fire Department/ambulance at the house to take him to the ER. Isabella believes that patient is not able to be home with HH services and would benefit from SNF/rehab as well. I have discussed this with the patient who is wavering on his willingness and committment to go to SNF. He tells me that he had a bad experience at [facility] in [place] and had only considered going to [facility] in [place], "but they have a waiting list". I did attempt to contact admissions at [facility] but was unsuccessful. He is not interested in any other rehab facilities in [place]. I asked patient if I could submit a referral to [facility] in [place]. I discussed family's concerns about his safety and their inabilty to be there 29/08. I shared my concerns as well, stressing that a rehab stay may help him to get stronger sooner, allowing him to be more independent when he does return home with HH services Patient agrees to a referral to [facility]. I have submitted a referral via [facility] and confirmed receipt with Doris at [facility] . Doris informs me that it is unlikely that patient will be reviewed/accepted this evening, but that he would likely be admitted tomorrow pending approval. Family is not available to be home with patient this evening and I do not believe he is safe to discharge home alone. Patient is in agreement with this as well. I have discussed with Dr. Crockett and plan is for admiission to observation overnight. Patient did discharge yesterday with HH after a 3+ night admission. Isabella (sister) aware of plan and I have encouraged her to follow up with patient in the morning to encourage him to stick with plan for SNF. She agrees and assures that family will be available for transport to SNF CM to follow Date Signed: 06/17/2017 05:23 PM Electronically Signed By:Diana Pineda RN LACE LACE Length of stay for Answers: 4-6 days current admission Acuity / Level of Answers: Yes Care: Did the patient have an inpatient admission? Comorbidities - select Answers: History of falls all that apply Opioid dependence / Chronic pain # of Emergency department Answers: 1-2 visits in the last 6 months Score: 15 Date Signed: 06/22/2017 01:27 PM Electronically Signed By:Abigail Miller RN [facility] CM Progress Note CM Note CM Note Notes: Pt and pt's family under impression he was here for 3 midnights during last admission 06/13-06/16 however, per UR, pt was obs status 06/13-06/15 and inpt status 06/15-06/16 so only had 1 midnight towards SNF stay eligibility. Spoke with pt and then contacted his niece Danielle (who works in [facility] ED) [phone] and explained situation to her. Hospitalist to change admission order to inpt today - pt will then qualify for SNF d/c Monday, if he still needs that LOC. Pt also stated he has used [facility] before and liked them so if he needs HC wants them. Soraida is concerned about his safety living alone. Apparently he has lived alone all his life and she is concerned he is not taking his medications appropriately, especially the opioids. Pt has money but has not been receptive to spending it on extra care at home. A referral has been sent to [facility] and [facility]. Pt not keen on discharging to SNF. CM will follow for any d/c needs. Date Signed: 06/18/2017 04:52 PM Electronically Signed By:RICHELLE Perdomo [facility] Progress Note CM Note CM Note Notes: CM spoke w/ Dr. Villatoro regarding d/c POC. Dasia from [facility] stopped by and met w/ pt. Pt is actively refusing SNF at this time. Dr. Villatoro is hopeful that once the afo brace is ordered for the foot drop pt will improve enough to d/c home with [facility] . Dr. Villatoro has deemed pt decisional. CM to follow. Plan: TBD Date Signed: 06/19/2017 03:42 PM Electronically Signed By:DUKE Rivera [facility] KAMRYN Progress Note CM Note CM Note Notes: CM met w/ pt for dispo planning. Pt reports that he had a long talk w/ his brother and his brother convinced him to go to [facility]. Pt is agreeable to going to [facility]. Anticipate d/c for tomorrow. CM spoke w/ Dasia at [facility] and she has a bed available for pt. Updates sent to [facility]. CM to follow. Plan: [facility] Date Signed: 06/20/2017 03:54 PM Electronically Signed By:DUKE Rivera Case Management Discharge Plan Note Case Management Discharge Discharge Order Complete? Answers: Yes Patient to Obtain Answers: Other Notes: [facility] Medications Transportation Arranged Answers: Other Notes: [facility] Transport will Pick (Date 06/22/2017 03:00 PM & Time) Faxed Final Orders Answers: Yes Agency/Facility Transfer Answers: Yes Report Printed & Faxed to Receiving Agency Discharge Comments Notes: D/brenden MICHELLE, final orders faxed. Stephanie at [facility] geeied, MILDRED to call report. Date Signed: 06/22/2017 12:40 PM Electronically Signed By:Abigail Miller RN Intervention Information Intervention Type:*IM-Signed Date of Service:06/22/2017 12:10 PM Patient Type:Inpatient Staff Member:Priscila Salazar Hours: Discipline: Severity: Comment:
== END 2017-06-22 16:10 | DRG 392 ==
LOC: EDUNIT# → OBSVTOIN 16:49 → INTOOBSV 16:49 → F3E 17:48
PROVIDERS: ADMIT Internal Medicine; ATTEND Family Medicine
DX: R19.7 Diarrhea, unspecified (principal); R11.2 Nausea with vomiting, unspecified; R53.1 Weakness; G89.29 Other chronic pain; F11.20 Opioid dependence, uncomplicated; L03.116 Cellulitis of left lower limb; L03.115 Cellulitis of right lower limb; I50.32 Chronic diastolic (congestive) heart failure; I48.91 Unspecified atrial fibrillation; D64.9 Anemia, unspecified; M35.3 Polymyalgia rheumatica; I25.5 Ischemic cardiomyopathy; Z95.0 Presence of cardiac pacemaker
CPT/HCPCS: 92507-GN; 92523-GN; 96374; 97110-GP; 97116-GP; 97162-GP; 97166-GO; 97535-GO; G0378; G0480; G8978-GP-CK; G8979-GP-CI; G8987-GO-CI; G8988-GO-CL; G9168-GO-CI; G9169-GN-CH; G9170-GN-CI; J1650; J2405; J7512